=== PATIENT | male | born 1955 | race Caucasian/White ===

== ENCOUNTER 2016-11-05 11:58 | Inpatient (IN) | payer SELFPAY ==
[2016-11-05] MEDS ORDERED: Sodium Chloride 0.9% 10 ML Syringe FLUSH PRN (12:57)
[2016-11-05] MEDS ORDERED: Ondansetron 4 MG Tab.DIS PO PRN (12:57)
[2016-11-05] MEDS ORDERED: Lactated Ringers 1,000 ML IV SCH (13:00)
[2016-11-05] MEDS ORDERED: Sodium Chloride 0.9% 1,000 ML IV ONE (14:19)
[2016-11-05] MEDS: Insulin Detemir 100 Units/ML 3 ML Pen SUBCUT SCH (14:55)
[2016-11-05] MEDS: Acetaminophen/oxyCODONE 325-5 MG Tab PO PRN ×2 (15:41→21:07)
[2016-11-05] MEDS: Sodium Chloride 0.9% 1,000 ML IV SCH (17:38)
[2016-11-05] MEDS ORDERED: Insulin Aspart 100 Units/ML 3 ML Pen SUBCUT SCH ×2 (18:00→22:00)
[2016-11-05] MEDS ORDERED: Calcium Carbonate/Vitamin D3 1250 MG-200 Unit Tab PO SCH (20:00)
[2016-11-05] MEDS ORDERED: Insulin Aspart 100 Units/ML 3 ML Pen SUBCUT ONE (22:10)
[2016-11-06] MEDS: Sodium Chloride 0.9% 1,000 ML IV SCH (03:46)
--- NOTE | 2016-11-06 07:56 | CONS ---
DATE OF CONSULTATION: 11/05/2016 A 61-year-old seen today for a consultation at the request of Dr. Mcdaniel. CHIEF COMPLAINT: Weakness, dizziness, fatigue, and elevated blood sugars. HISTORY OF PRESENT ILLNESS: The patient has diabetes for 20-25 years. He came into the clinic last Friday on the with a 101 fever, some right lower quadrant abdominal pain and a white count of 14,000. He was given some IV Rocephin. He was given a prescription for prednisone for presumably for COPD exacerbation, but he never picked it up. His blood sugar was over 400 in the clinic. He had been sleeping a lot like 23 hours a day. He just had no energy, poor appetite. He had been dry heaving, but that is better now. He had been sick all week, he got sick exactly 1 week ago. He has not lost any weight. He has had some urinary frequency, but no dysuria. He had some bacteria in his urine, but trace leukocyte esterase and negative nitrites. Today, he has no abdominal pain, he has no fevers, he has no chest pain, no cough, no shortness of breath, he had sore throat. He had negative influenza testing through the clinic. PAST MEDICAL HISTORY: Otherwise, his past medical history does include coronary artery disease, status post stenting 10 years ago. He has also had an osteoarthritis with a previous right hip replacement. He has essential hypertension. He has type 2 diabetes for 20-25 years, he denies any complications. He has never been on insulin. He has A1c at 7.3 in May, but it has been up to 11.9 a year ago. He has chronic kidney disease with baseline creatinine around 1.3 to 1.4. He had been smoking about a quarter pack per day. He has had vascular disease with a previous right carotid end arterectomy. He has had obesity. He has had dyslipidemia. He has had some previous opioid dependence reported. He has had mild recurrent major depression. He has had mild COPD, and he has reported rheumatoid arthritis. SOCIAL HISTORY: He is . He lives at home with his . He drinks about 3-4 drinks of beers 1 time per week. Again, he smokes a half pack per day. FAMILY HISTORY: His mother is . She had problems with heart failure and heart disease, but was quite elderly when she . REVIEW OF SYSTEMS: General: He has had fever as stated in the HPI. No chills. He has had fatigue. HEENT: No sore throat. No nasal congestion. Cardiac: No chest pain. No palpitations. Respiratory: No cough, no shortness of breath. Abdomen: He does not even mention the abdominal pain to me, I found in his notes from Friday. Extremities: No swelling. No edema. No new back pain or knee pains. Neurologic: He denies any numbness or tingling of his extremities. Otherwise, all systems reviewed and found to be negative unless otherwise stated. . ALLERGIES: Duloxetine, Sulfa, Zetia, horseradish, losartan, and rosuvastatin. MEDICATIONS: List includes magnesium daily, Percocet 1 every 6 hours as needed for pain, aspirin 81 mg daily, calcium and vitamin D, Plavix 75 mg daily, metoprolol 100 mg daily, Zoloft 100 mg daily, amlodipine 5 mg daily, bupropion 300 mg daily. PHYSICAL EXAMINATION: General: On admission, weight 86.8 pounds. Temperature 98.5, pulse 74; blood pressure 150/66, actually blood pressure over in the clinic was listed around 100 systolic at [facility]; respiratory rate 16, and O2 of 95% on room air. General: He is in no acute distress. Heart: Regular rate and rhythm. S1, S2 without murmur. Lungs: Sounds are clear to auscultation bilaterally without crackles or wheezes. Abdomen: Positive bowel sounds. Soft and nontender. His bladder was not enlarged by exam. Liver not enlarged. Extremities: No redness. No rashes. Mental Status: Alert and orientated x3. PSYCH: His mood is appropriate. LABORATORY DATA: Lab work does show a white count 11.5, hemoglobin 13.5, platelets 222. ABGs show a pH of 7.4, pO2 of 60. Sodium 125; however, blood sugar was 409, potassium 4.1, chloride 87, bicarb 30, BUN 38, creatinine 1.8, calcium up at 11.4, albumin 2.7. ASSESSMENT: 1. Hyperglycemia with known diabetes, possibly exacerbated by recent illness. Due to renal insufficiency, the patient cannot take metformin. He is having symptoms of fatigue and excessive urination. We will get him started on some subcutaneous insulin, but I do not think an insulin drip is warranted. 2. Fevers with leukocytosis, seems to be resolving. He has no focal signs to suggest infection, could consider repeating a UA, could be even consider abdominal CT if his symptoms were to worsen. Given his diabetes, he could have some sort of abdominal infection that was partially treated by the IV Rocephin. 3. Hyponatremia, somewhat pseudohyponatremia from elevated blood sugar. Corrected sodium is 132. He also has some dehydration from increased urinary output with hyperglycemia. 4. Hypercalcemia, probably due to dehydration. We will hold his calcium supplements as well and hydrate him. 5. Acute renal failure on chronic kidney disease, stage III. Creatinine is up to 1.8 with baseline around 1.4. We will repeat another urine test here to look for any pyuria or inflammatory changes. Vasculitis could be another source of fever. I am going to also order a sedimentation rate with his morning labs. 6. Chronic pain due to rheumatoid arthritis. He is on Percocet. I did cancel the order for Prednisone, I think this would only worsen his hyperglycemia. 7. Chronic obstructive pulmonary disease, stable without exacerbation. 8. History of peripheral vascular disease and coronary disease. He is on Plavix. 9. Essential hypertension. Blood pressures are now elevated after the IV fluids. We will continue to monitor and continue his Toprol and amlodipine. 10.Depression. We will continue Wellbutrin. PLAN: At this point, we will continue routine Accu-Cheks at least every 2 hours until bedtime. He got 20 units of Levemir already that will be his daily dose for now. I am going to schedule 5 units of NovoLog t.i.d. with meals. I see no indication for an insulin drip here, the patient seems to be doing a little bit better just with IV fluids. We will have the social media editor also visit with the patient regarding his lack of insurance and difficulty with paying for prescriptions. Hopefully, if kidney function will improve to the point he can return to metformin. Followed by Dr. Mcdaniel. I anticipate he will be discharged home in the next 1-2 days. REMY: 11/05/2016 17:25:04 MODL: 11/05/2016 23:55:12 /[id number]
[2016-11-06] MEDS ORDERED: Metoprolol Succinate 50 MG Tab.ER PO SCH (08:00)
[2016-11-06] MEDS ORDERED: Clopidogrel 75 MG Tab PO SCH (08:00)
[2016-11-06] MEDS ORDERED: Aspirin 81 MG Tab.EC PO SCH (08:00)
[2016-11-06] MEDS ORDERED: amLODIPine 5 MG Tab PO SCH (08:00)
[2016-11-06] MEDS ORDERED: Magnesium Amino Acid Chelate [Magnesium] 100 MG PO SCH (08:00)
[2016-11-06] MEDS ORDERED: Sertraline 100 MG Tab PO SCH (08:00)
[2016-11-06] MEDS ORDERED: buPROPion 150 MG Tab.ER PO SCH (08:00)
[2016-11-06] MEDS: Insulin Detemir 100 Units/ML 3 ML Pen SUBCUT SCH (08:00)
[2016-11-06] MEDS ORDERED: predniSONE 20 MG Tab PO SCH (08:00)
--- NOTE | 2016-11-06 08:53 | PCM.SN ---
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 He will go home on insulin could consider metformin again if Cr remains 1.4 or better. ESR was 113 so I would have a low threshold to do a CT of his abdomen especially if his abdominal pain returns.
[2016-11-06 10:25] VITALS: BP 165/78
[2016-11-06] MEDS ORDERED: Insulin Aspart 100 Units/ML 3 ML Pen SUBCUT ONE (11:20)
--- NOTE | 2016-11-06 23:08 | PCM.HP ---
H&P History of Present Illness - General Date of Service: 11/05/16 Admit Problem/Dx: 61 year old male admitted through clinic with complaints of weakness. Source of Information: Patient History Limitations: Reports: No limitations - History of Present Illness Initial Comments - Free Text/Narative: 61 year old male presents to clinic with complaints of weakness. He is accompanied by his . Weakness was noted to have started the week prior and gradually worsening. Pt states his muscles ache. notes he has been sleeping 23 hours/day. He states he has not had an appetite. Admits to some nausea. Did have a fever late last week which prompted him to come to the clinic. Lab work was done. He was treated with IV fluids and IV Rocephin. Initially thought this may have helped but states he was "back to square one" by the evening. States he has been able to take his oral medication. Lab work from 11/02 reveals a blood sugar over 420 and sodium of 125. Calcium was elevated as well. Ketones noted in urine. Fingerstick glucose in clinic was over 420 again. Onset of Symptoms: Reports: gradual hip/knee Pain Score (Numeric/FACES): 7 - Related Data Allergies/Adverse Reactions: Allergies Allergy/AdvReac Type Severity Reaction Status Date / Time duloxetine [From Cymbalta] Allergy Other Verified 11/05/16 13:12 Sulfa (Sulfonamide Allergy Hives Verified 11/05/16 13:12 Antibiotics) ezetimibe [From Zetia] AdvReac Nausea Verified 11/05/16 13:14 horseradish AdvReac Diarrhea Verified 11/05/16 13:14 losartan AdvReac Dizziness Verified 11/05/16 13:14 rosuvastatin [From Crestor] AdvReac Muscle Verified 11/05/16 13:14 Aches Home Medications: Home Meds Aspirin [Ecotrin] 81 mg PO DAILY 11/05/16 [History] Calcium Carbonate [Calcium] 600 mg PO BID 11/05/16 [History] Clopidogrel [Plavix] 75 mg PO DAILY 11/05/16 [History] Hydrochlorothiazide 25 mg PO DAILY 11/05/16 [History] Magnesium Amino Acid Chelate [Magnesium] 100 mg PO DAILY 11/05/16 [History] Metoprolol Succinate [Toprol XL] 100 mg PO DAILY 11/05/16 [History] Elrod-3 Fatty Acids [Maxepa] 1,000 mg PO WITHDINNER 11/05/16 [History] Elrod-3 Fatty Acids [Maxepa] 2,000 mg PO DAILY 11/05/16 [History] Sertraline [Zoloft] 100 mg PO DAILY 11/05/16 [History] amLODIPine [Norvasc] 5 mg PO DAILY 11/05/16 [History] buPROPion [Wellbutrin SR] 150 mg PO BID 11/05/16 [History] oxyCODONE HCl/Acetaminophen [Percocet 10-325 mg Tablet] 1 each PO Q6H PRN [History] Insulin Aspart [NovoLOG] 5 unit SUBCUT TIDMEALS #1 pen 11/06/16 [Rx] Insulin Detemir [Levemir] 20 unit SUBCUT DAILY #1 pen 11/06/16 [Rx] Past Medical History Cardiovascular History: Reports: Stents Musculoskeletal History: Reports: Arthritis Neurological History: Reports: Concussion Psychiatric History: Reports: Depression Endocrine/Metabolic History: Reports: Diabetes, type II - Past Surgical History Musculoskeletal Surgical History: Reports: Arthroscopic knee Other Musculoskeletal Surgeries/Procedures:: left knee in the Social & Family History - Family History HEENT: Reports: Cataract, Impaired vision, Sinusitis Cardiac: Reports: Stent H&P Review of Systems - Review of Systems: Review Of Systems: See Below General: Reports: fever (last fever noted 4 days ago), weakness HEENT: Reports: no symptoms Pulmonary: Reports: no symptoms. Denies: shortness of breath, cough Cardiovascular: Reports: no symptoms. Denies: chest pain Gastrointestinal: Reports: Abdominal pain, Decreased appetite, Nausea. Denies: Diarrhea, Hematemesis, Hematochezia, Melena, Vomiting Genitourinary: Reports: no symptoms. Denies: dysuria, hematuria Musculoskeletal: Reports: joint pain, muscle pain Skin: Reports: no symptoms Psychiatric: Reports: no symptoms. Denies: confusion Neurological: Reports: paresthesia, weakness Hematologic/Lymphatic: Reports: no symptoms Immunologic: Reports: no symptoms Exam - Exam Exam: See Below - Vital Signs Vital Signs: Last Vital Signs Temp 36.6 C 11/06/16 10:00 Pulse 76 11/06/16 10:00 Resp 16 11/06/16 10:00 BP 165/78 H 11/06/16 10:00 Pulse Ox 96 11/06/16 10:00 Weight: 85.049 kg - Exam General: alert, oriented, cooperative HEENT: Conjunctiva clear, Other (Mucous membranes are dry), PERRLA Neck: supple Lungs: Clear to auscultation Cardiovascular: regular rate, regular rhythm Abdomen: normal bowel sounds, soft (Male) Exam: Deferred Extremities: No: edema Skin: warm, dry Neurological: cranial nerves intact Neuro Extensive - Mental Status: alert, oriented x3 Neuro Extensive - Motor, Sensory, Reflexes: CN II-XII intact Psychiatric: alert, normal affect - Patient Data Lab Results last 24 hrs: Laboratory Results - last 24 hr 11/05/16 11/05/16 11/06/16 Range/Units 13:18 13:18 05:34 WBC (4.0-10.0) x10^3/uL RBC (4.5-6.0) x10^6/uL Hgb (14.0-18.0) g/dL Hct (40.0-52.0) % MCV (78.0-93.0) fL MCH (26.0-32.0) pg MCHC (32.0-36.0) g/dL RDW Coeff of Vijay (10.0-15.0) % Plt Count (130-400) x10^3/uL Add Manual Diff Neutrophils % (Manual) (50-80) % Band Neutrophils % (0-6) % Lymphocytes % (Manual) (25-50) % Eosinophils % (Manual) (0-4) % Platelet Estimate ESR (0-16) mm/hr Sodium (136-145) mmol/L Potassium (3.5-5.1) mmol/L Chloride (98-107) mmol/L Carbon Dioxide (21-32) mmol/L BUN (7-18) mg/dL Creatinine (0.70-1.30) mg/dL Est Cr Clr Drug Dosing mL/min Estimated GFR (MDRD) Glucose (74-106) mg/dL POC Glucose 281 H (74-106) mg/dL Serum Osmolality 293 (275-295) mosm/kg Calcium (8.5-10.1) mg/dL B-Hydroxybutyrate 0.3 H* (0.0-0.2) mmol/L 11/06/16 11/06/16 11/06/16 Range/Units 06:35 06:35 06:35 WBC 6.1 (4.0-10.0) x10^3/uL RBC 3.87 L (4.5-6.0) x10^6/uL Hgb 12.2 L (14.0-18.0) g/dL Hct 35.3 L (40.0-52.0) % MCV 91.2 (78.0-93.0) fL MCH 31.5 (26.0-32.0) pg MCHC 34.6 (32.0-36.0) g/dL RDW Coeff of Vijay 12.5 (10.0-15.0) % Plt Count 166 (130-400) x10^3/uL Add Manual Diff Yes Neutrophils % (Manual) 78 (50-80) % Band Neutrophils % 5 (0-6) % Lymphocytes % (Manual) 14 L (25-50) % Eosinophils % (Manual) 3 (0-4) % Platelet Estimate Adequate ESR 113 H (0-16) mm/hr Sodium 133 L (136-145) mmol/L Potassium 4.0 (3.5-5.1) mmol/L Chloride 95 L (98-107) mmol/L Carbon Dioxide 28 (21-32) mmol/L BUN 31 H (7-18) mg/dL Creatinine 1.4 H (0.70-1.30) mg/dL Est Cr Clr Drug Dosing 55.76 mL/min Estimated GFR (MDRD) 51 Glucose 318 H (74-106) mg/dL POC Glucose (74-106) mg/dL Serum Osmolality (275-295) mosm/kg Calcium 9.3 (8.5-10.1) mg/dL B-Hydroxybutyrate (0.0-0.2) mmol/L 11/06/16 11/06/16 11/06/16 Range/Units 11:11 12:34 13:44 WBC (4.0-10.0) x10^3/uL RBC (4.5-6.0) x10^6/uL Hgb (14.0-18.0) g/dL Hct (40.0-52.0) % MCV (78.0-93.0) fL MCH (26.0-32.0) pg MCHC (32.0-36.0) g/dL RDW Coeff of Vijay (10.0-15.0) % Plt Count (130-400) x10^3/uL Add Manual Diff Neutrophils % (Manual) (50-80) % Band Neutrophils % (0-6) % Lymphocytes % (Manual) (25-50) % Eosinophils % (Manual) (0-4) % Platelet Estimate ESR (0-16) mm/hr Sodium (136-145) mmol/L Potassium (3.5-5.1) mmol/L Chloride (98-107) mmol/L Carbon Dioxide (21-32) mmol/L BUN (7-18) mg/dL Creatinine (0.70-1.30) mg/dL Est Cr Clr Drug Dosing mL/min Estimated GFR (MDRD) Glucose (74-106) mg/dL POC Glucose 460 H* 491 H* 383 H (74-106) mg/dL Serum Osmolality (275-295) mosm/kg Calcium (8.5-10.1) mg/dL B-Hydroxybutyrate (0.0-0.2) mmol/L Result Diagrams: 11/06/16 06:35 11/06/16 06:35 *Q Meaningful Use (ADM) - VTE *Q VTE Criteria *Q: - Stroke *Q Stroke Criteria *Q: - AMI *Q AMI Criteria *Q: - Problem List (1) Weakness SNOMED Code(s): 13144632 ICD Code: R53.1 - WEAKNESS Status: Acute (2) Diabetes mellitus type II, uncontrolled SNOMED Code(s): 51813646, 884978311 ICD Code: E11.65 - TYPE 2 DIABETES MELLITUS WITH HYPERGLYCEMIA Status: Chronic Priority: High Qualifiers: Diabetes mellitus complication status: with neurologic complications Diabetes mellitus complication detail: with unspecified neuropathy Diabetes mellitus [facility] insulin use: without [facility] use Qualified Code(s): E11.40 - Type 2 diabetes mellitus with diabetic neuropathy, unspecified; E11.65 - Type 2 diabetes mellitus with hyperglycemia (3) Hyponatremia SNOMED Code(s): 42581769 ICD Code: E87.1 - HYPO-OSMOLALITY AND HYPONATREMIA Status: Acute (4) Hypercalcemia SNOMED Code(s): 67588306 ICD Code: E83.52 - HYPERCALCEMIA Status: Acute (5) Dehydration SNOMED Code(s): 33810352 ICD Code: E86.0 - DEHYDRATION Status: Acute Problem List Initiated/Reviewed/Updated: Yes Orders Last 24hrs: Active Orders 24 hr Category Date Time Status Ready for Discharge [RC] PER UNIT ROUTINE Care 11/06/16 12:03 Active Assessment/Plan Comment:: Patient will be admitted and started on aggressive IV fluid replacement. Blood sugar and electrolytes will be monitored. Zofran ordered for nausea. Will start levemir. Will consult, Dr. Brigitte Clien in the event that an insulin drip is necessary. Patient is a code level I
--- NOTE | 2016-11-06 23:19 | PCM.DCSUM1 ---
Discharge Summary - Hospital Course Free Text/Narrative:: Patient admitted yesterday with dehydration, weakness and hyperglycemia. States he is feeling much better today. Ate well last evening and again at breakfast. Didn't sleep well but states that was due to the bed and IV tubing. - Discharge Data Discharge Date: 11/06/16 Discharge Disposition: Home, Self-Care 01 Condition: Good - Discharge Diagnosis/Problem(s) (1) Weakness SNOMED Code(s): 96290409 ICD Code: R53.1 - WEAKNESS Status: Acute (2) Diabetes mellitus type II, uncontrolled SNOMED Code(s): 69675999, 918914812 ICD Code: E11.65 - TYPE 2 DIABETES MELLITUS WITH HYPERGLYCEMIA Status: Chronic Priority: High Qualifiers: Diabetes mellitus complication status: with neurologic complications Diabetes mellitus complication detail: with unspecified neuropathy Diabetes mellitus termination clerk insulin use: without termination clerk use Qualified Code(s): E11.40 - Type 2 diabetes mellitus with diabetic neuropathy, unspecified; E11.65 - Type 2 diabetes mellitus with hyperglycemia (3) Hyponatremia SNOMED Code(s): 93870600 ICD Code: E87.1 - HYPO-OSMOLALITY AND HYPONATREMIA Status: Acute (4) Hypercalcemia SNOMED Code(s): 78876653 ICD Code: E83.52 - HYPERCALCEMIA Status: Acute (5) Dehydration SNOMED Code(s): 33035331 ICD Code: E86.0 - DEHYDRATION Status: Acute - Patient Summary/Data Consults: Consultations 11/05/16 12:57 Consult to Physician [CONS] Routine - Patient Instructions Diet: Diabetic Diet Activity: As Tolerated - Discharge Plan Prescriptions/Med Rec: Insulin Aspart [NovoLOG] 5 unit SUBCUT TIDMEALS #1 pen Insulin Detemir [Levemir] 20 unit SUBCUT DAILY #1 pen Home Medications: Home Meds Aspirin [Ecotrin] 81 mg PO DAILY 11/05/16 [History] Calcium Carbonate [Calcium] 600 mg PO BID 11/05/16 [History] Clopidogrel [Plavix] 75 mg PO DAILY 11/05/16 [History] Hydrochlorothiazide 25 mg PO DAILY 11/05/16 [History] Magnesium Amino Acid Chelate [Magnesium] 100 mg PO DAILY 11/05/16 [History] Metoprolol Succinate [Toprol XL] 100 mg PO DAILY 11/05/16 [History] [place]-3 Fatty Acids [Maxepa] 1,000 mg PO WITHDINNER 11/05/16 [History] [place]-3 Fatty Acids [Maxepa] 2,000 mg PO DAILY 11/05/16 [History] Sertraline [Zoloft] 100 mg PO DAILY 11/05/16 [History] amLODIPine [Norvasc] 5 mg PO DAILY 11/05/16 [History] buPROPion [Wellbutrin SR] 150 mg PO BID 11/05/16 [History] oxyCODONE HCl/Acetaminophen [Percocet 10-325 mg Tablet] 1 each PO Q6H PRN [History] Insulin Aspart [NovoLOG] 5 unit SUBCUT TIDMEALS #1 pen 11/06/16 [Rx] Insulin Detemir [Levemir] 20 unit SUBCUT DAILY #1 pen 11/06/16 [Rx] Referrals: Adelaide Mcdaniel DO [Primary Care Provider] - 10/17/17 8:40 am (You have a follow up appt. with Dr. Mcdaniel on November 14, 2016 at 8:40 at [facility]) - Discharge Summary/Plan Comment DC Time >30 min.: No Discharge Summary/Plan Comment: Patient will be discharged home to care of himself. Patient has prior history of insulin use and thus states he is knowledgeable with insulin use. He was asked to do glucometer checks 4x/day until follow up appt in clinic next week. RTC sooner should weakness return. He was instructed to hold his metformin and glipizide for now as well. - General Info Date of Service: 11/06/16 Admission Dx/Problem (Free Text: 61 year old male admitted through clinic with complaints of weakness. - Review of Systems General: Reports: no symptoms HEENT: Reports: no symptoms, glasses Pulmonary: Denies: shortness of breath Cardiovascular: Denies: chest pain Gastrointestinal: Denies: Abdominal pain, Nausea Genitourinary: Reports: no symptoms Musculoskeletal: Reports: joint pain Skin: Reports: no symptoms Neurological: Reports: no symptoms - Patient Data Vitals - Most Recent: Last Vital Signs Temp 36.6 C 11/06/16 10:00 Pulse 76 11/06/16 10:00 Resp 16 11/06/16 10:00 BP 165/78 H 11/06/16 10:00 Pulse Ox 96 02/22/17 10:00 Weight - Most Recent: 85.049 kg I&O - Last 24 hours: Intake & Output 11/06/16 11/06/16 11/07/16 14:59 22:59 06:59 Intake Total 600 Balance 600 Lab Results - Last 24 hrs: Laboratory Results - last 24 hr 11/05/16 11/05/16 11/06/16 Range/Units 13:18 13:18 05:34 WBC (4.0-10.0) x10^3/uL RBC (4.5-6.0) x10^6/uL Hgb (14.0-18.0) g/dL Hct (40.0-52.0) % MCV (78.0-93.0) fL MCH (26.0-32.0) pg MCHC (32.0-36.0) g/dL RDW Coeff of Vijay (10.0-15.0) % Plt Count (130-400) x10^3/uL Add Manual Diff Neutrophils % (Manual) (50-80) % Band Neutrophils % (0-6) % Lymphocytes % (Manual) (25-50) % Eosinophils % (Manual) (0-4) % Platelet Estimate ESR (0-16) mm/hr Sodium (136-145) mmol/L Potassium (3.5-5.1) mmol/L Chloride (98-107) mmol/L Carbon Dioxide (21-32) mmol/L BUN (7-18) mg/dL Creatinine (0.70-1.30) mg/dL Est Cr Clr Drug Dosing mL/min Estimated GFR (MDRD) Glucose (74-106) mg/dL POC Glucose 281 H (74-106) mg/dL Serum Osmolality 293 (275-295) mosm/kg Calcium (8.5-10.1) mg/dL B-Hydroxybutyrate 0.3 H* (0.0-0.2) mmol/L 11/06/16 11/06/16 11/06/16 Range/Units 06:35 06:35 06:35 WBC 6.1 (4.0-10.0) x10^3/uL RBC 3.87 L (4.5-6.0) x10^6/uL Hgb 12.2 L (14.0-18.0) g/dL Hct 35.3 L (40.0-52.0) % MCV 91.2 (78.0-93.0) fL MCH 31.5 (26.0-32.0) pg MCHC 34.6 (32.0-36.0) g/dL RDW Coeff of Vijay 12.5 (10.0-15.0) % Plt Count 166 (130-400) x10^3/uL Add Manual Diff Yes Neutrophils % (Manual) 78 (50-80) % Band Neutrophils % 5 (0-6) % Lymphocytes % (Manual) 14 L (25-50) % Eosinophils % (Manual) 3 (0-4) % Platelet Estimate Adequate ESR 113 H (0-16) mm/hr Sodium 133 L (136-145) mmol/L Potassium 4.0 (3.5-5.1) mmol/L Chloride 95 L (98-107) mmol/L Carbon Dioxide 28 (21-32) mmol/L BUN 31 H (7-18) mg/dL Creatinine 1.4 H (0.70-1.30) mg/dL Est Cr Clr Drug Dosing 55.76 mL/min Estimated GFR (MDRD) 51 Glucose 318 H (74-106) mg/dL POC Glucose (74-106) mg/dL Serum Osmolality (275-295) mosm/kg Calcium 9.3 (8.5-10.1) mg/dL B-Hydroxybutyrate (0.0-0.2) mmol/L 11/06/16 11/06/16 11/06/16 Range/Units 11:11 12:34 13:44 WBC (4.0-10.0) x10^3/uL RBC (4.5-6.0) x10^6/uL Hgb (14.0-18.0) g/dL Hct (40.0-52.0) % MCV (78.0-93.0) fL MCH (26.0-32.0) pg MCHC (32.0-36.0) g/dL RDW Coeff of Vijay (10.0-15.0) % Plt Count (130-400) x10^3/uL Add Manual Diff Neutrophils % (Manual) (50-80) % Band Neutrophils % (0-6) % Lymphocytes % (Manual) (25-50) % Eosinophils % (Manual) (0-4) % Platelet Estimate ESR (0-16) mm/hr Sodium (136-145) mmol/L Potassium (3.5-5.1) mmol/L Chloride (98-107) mmol/L Carbon Dioxide (21-32) mmol/L BUN (7-18) mg/dL Creatinine (0.70-1.30) mg/dL Est Cr Clr Drug Dosing mL/min Estimated GFR (MDRD) Glucose (74-106) mg/dL POC Glucose 460 H* 491 H* 383 H (74-106) mg/dL Serum Osmolality (275-295) mosm/kg Calcium (8.5-10.1) mg/dL B-Hydroxybutyrate (0.0-0.2) mmol/L Med Orders - Current: Current Medications Discontinued Medications Amlodipine Besylate (Norvasc) 5 mg PO DAILY [facility] Last Admin: 11/06/16 07:58 Dose: 5 mg Aspirin (Halfprin) 81 mg PO DAILY [facility] Last Admin: 11/06/16 07:58 Dose: 81 mg Bupropion HCl (Wellbutrin Xl) 300 mg PO DAILY [facility] Last Admin: 11/06/16 07:57 Dose: 300 mg Calcium Carbonate (Calcium Carbonate/Vitamin D 1250 Mg-200 Unit) 1 tab PO BID [facility] Clopidogrel Bisulfate (Plavix) 75 mg PO DAILY [facility] Last Admin: 11/06/16 07:58 Dose: 75 mg Lactated Ringer's (Ringers, Lactated) 1,000 mls @ 175 mls/hr IV ASDIRECTED [facility] Sodium Chloride (Normal Saline) 1,000 mls @ 1,000 mls/hr IV ONETIME ONE Stop: 11/05/16 15:18 Last Admin: 11/05/16 14:30 Dose: 1,000 mls/hr Sodium Chloride (Normal Saline) 1,000 mls @ 100 mls/hr IV ASDIRECTED [facility] Last Admin: 11/06/16 03:46 Dose: 100 mls/hr Insulin Aspart (Novolog) 5 unit SUBCUT TIDMEALS [facility] Last Admin: 11/05/16 17:41 Dose: 5 units Insulin Aspart (Novolog) 0 unit SUBCUT TIDMEALS [facility] Last Admin: 11/05/16 22:16 Dose: 8 units Insulin Aspart (Novolog) 0 unit SUBCUT NOW ONE Stop: 11/05/16 22:11 Last Admin: 11/05/16 22:10 Dose: 8 units Insulin Aspart (Novolog) 5 unit SUBCUT ONETIME ONE Stop: 11/06/16 11:21 Last Admin: 11/06/16 11:37 Dose: 5 unit Insulin Detemir (Levemir) 20 unit SUBCUT DAILY [facility] Last Admin: 11/06/16 08:00 Dose: 20 units Metoprolol Succinate (Toprol Xl) 100 mg PO DAILY [facility] Last Admin: 11/06/16 07:56 Dose: 100 mg Magnesium Amino Acid Chelate [Magnesium] 100 Mg 0 mg PO DAILY [facility] Last Admin: 11/06/16 08:02 Dose: Not Given Ondansetron HCl (Zofran Odt) 4 mg PO Q4H PRN PRN Reason: nausea, able to take PO Oxycodone/Acetaminophen (Percocet 325-5 Mg) 2 tab PO Q6HR PRN PRN Reason: Pain Last Admin: 11/05/16 21:07 Dose: 2 tab Prednisone (Prednisone) 20 mg PO WITHBREAKFAST [facility] Sertraline HCl (Zoloft) 100 mg PO DAILY [facility] Last Admin: 11/06/16 07:57 Dose: 100 mg Sodium Chloride (Saline Flush) 10 ml FLUSH ASDIRECTED PRN PRN Reason: Keep Vein Open - Exam General: Reports: alert, oriented HEENT: Reports: Pupils equal Neck: Reports: supple Lungs: Reports: Clear to auscultation Cardiovascular: Reports: regular rate, regular rhythm Abdomen: Reports: bowel sounds present, soft Extremities: Reports: no edema Skin: Reports: warm, dry Psy/Mental Status: Reports: alert, normal affect *Q Meaningful Use (DIS) - VTE *Q VTE Criteria *Q: - Stroke *Q Stroke Criteria *Q: - AMI *Q AMI Criteria *Q:
== END 2016-11-06 14:08 | disposition home or self-care (01) | DRG 638 ==
LOC: VM.MS 12:00
PROVIDERS: ADMIT Family Medicine; ATTEND Family Medicine
DX: E11.65 Type 2 diabetes mellitus with hyperglycemia (principal); E87.1 Hypo-osmolality and hyponatremia; N17.9 Acute kidney failure, unspecified; R53.1 Weakness; R11.0 Nausea; Z79.82 Long term (current) use of aspirin; Z79.4 Long term (current) use of insulin; F32.9 Major depressive disorder, single episode, unspecified; E83.52 Hypercalcemia; E86.0 Dehydration; I25.10 Atherosclerotic heart disease of native coronary artery without angina pectoris; I12.9 Hypertensive chronic kidney disease with stage 1 through stage 4 chronic kidney disease, or unspecified chronic kidney disease; E11.22 Type 2 diabetes mellitus with diabetic chronic kidney disease; N18.9 Chronic kidney disease, unspecified; R50.9 Fever, unspecified; D72.829 Elevated white blood cell count, unspecified; M06.9 Rheumatoid arthritis, unspecified; I73.9 Peripheral vascular disease, unspecified; J44.9 Chronic obstructive pulmonary disease, unspecified; E11.40 Type 2 diabetes mellitus with diabetic neuropathy, unspecified; Z95.5 Presence of coronary angioplasty implant and graft
CPT/HCPCS: 36415; 36600; 80048; 80053; 81001; 81003; 82010; 82803; 82962; 83930; 85025; 85652; A9270-GY; J1815-GY; J7030

== ENCOUNTER 2018-01-11 11:27 | Inpatient (IN) | payer MEDICARE ==
[2018-01-11] MEDS ORDERED: methylPREDNISolone Sodium Succinate 125 MG/2 ML SDV IVPUSH ONE (11:31)
[2018-01-11] MEDS ORDERED: Albuterol/Ipratropium 3.0-0.5 MG/3 ML Neb Soln NEB ONE (11:31)
[2018-01-11] MEDS ORDERED: cefTRIAXone 1 GM Vial IVPUSH ONE (11:46)
--- NOTE | 2018-01-11 11:47 | EDM.PDOC ---
ED HPI GENERAL MEDICAL PROBLEM - General Stated Complaint: RESPIRATORY PROBLEMS Time Seen by Provider: 01/11/18 11:27 Source of Information: Reports: Patient, Family - History of Present Illness INITIAL COMMENTS - FREE TEXT/NARRATIVE: patient is brought into the emergency department today with complaints of shortness of breath. The shortness of breath started yesterday and has progressed throughout the night into today. Patient denies any chest pain with this. States that he does have a cough and has had a fever over the last 24 hours. Today he is unable to continue with his activities of daily living. He becomes extremely short of breath and is unable to speak full sentences. He denies being ill prior to yesterday. He does smoke a half a pack of cigarettes a day. He does not have any history of respiratory diseases nor is he on home oxygen. Denies any nausea, vomiting, diarrhea, or numbness tingling. Onset: Sudden Associated Symptoms: Reports: Cough, cough w sputum, Diaphoresis, Fever/Chills, Shortness of Breath, Weakness - Related Data Allergies Allergy/AdvReac Type Severity Reaction Status Date / Time duloxetine [From Cymbalta] Allergy Other Verified 01/11/18 11:47 Sulfa (Sulfonamide Allergy Hives Verified 01/11/18 11:47 Antibiotics) ezetimibe [From Zetia] AdvReac Nausea Verified 01/11/18 11:47 horseradish AdvReac Diarrhea Verified 01/11/18 11:47 losartan AdvReac Dizziness Verified 01/11/18 11:47 rosuvastatin [From Crestor] AdvReac Muscle Verified 01/11/18 11:47 Aches Home Meds: Home Meds Aspirin [Ecotrin] 81 mg PO DAILY 11/05/16 [History] Calcium Carbonate [Calcium] 600 mg PO BID 11/05/16 [History] Clopidogrel [Plavix] 75 mg PO DAILY 11/05/16 [History] Hydrochlorothiazide 25 mg PO DAILY 11/05/16 [History] Magnesium Amino Acid Chelate [Magnesium] 100 mg PO DAILY 11/05/16 [History] Metoprolol Succinate [Toprol XL] 100 mg PO DAILY 11/05/16 [History] [place]-3 Fatty Acids [Maxepa] 1,000 mg PO WITHDINNER 11/05/16 [History] [place]-3 Fatty Acids [Maxepa] 2,000 mg PO DAILY 11/05/16 [History] Sertraline [Zoloft] 100 mg PO DAILY 11/05/16 [History] amLODIPine [Norvasc] 5 mg PO DAILY 11/05/16 [History] buPROPion [Wellbutrin SR] 150 mg PO BID 11/05/16 [History] oxyCODONE HCl/Acetaminophen [Percocet 10-325 mg Tablet] 1 each PO Q6H PRN [History] Insulin Aspart [NovoLOG] 5 unit SUBCUT TIDMEALS #1 pen 11/06/16 [Rx] Insulin Detemir [Levemir] 20 unit SUBCUT DAILY #1 pen 11/06/16 [Rx] Past Medical History Cardiovascular History: Reports: Stents Musculoskeletal History: Reports: Arthritis Neurological History: Reports: Concussion Psychiatric History: Reports: Depression Endocrine/Metabolic History: Reports: Diabetes, Type II - Past Surgical History Musculoskeletal Surgical History: Reports: Arthroscopic Knee Social & Family History - Family History HEENT: Reports: Cataract, Impaired Vision, Sinusitis Cardiac: Reports: Stent ED ROS GENERAL - Review of Systems Review Of Systems: See Below Constitutional: Reports: Fever, Chills, Weakness, Night Sweats HEENT: Reports: No Symptoms Respiratory: Reports: Shortness of Breath, Wheezing, Cough Cardiovascular: Reports: No Symptoms Endocrine: Reports: No Symptoms GI/Abdominal: Reports: No Symptoms : Reports: No Symptoms Musculoskeletal: Reports: No Symptoms Skin: Reports: No Symptoms Neurological: Reports: No Symptoms Psychiatric: Reports: No Symptoms Hematologic/Lymphatic: Reports: No Symptoms Immunologic: Reports: No Symptoms ED EXAM, GENERAL - Physical Exam Exam: See Below Exam Limited By: Respiratory Distress General Appearance: Alert, Moderate Distress Respiratory/Chest: Respiratory Distress, Decreased Breath Sounds, Wheezing, Stridor, Accessory Muscle Use Cardiovascular: Normal Peripheral Pulses, Tachycardia GI/Abdominal: Normal Bowel Sounds, Soft, Non-Tender, No Distention, No Abnormal Bruit Back Exam: Normal Inspection, Full Range of Motion Extremities: Normal Inspection, Normal Range of Motion, Normal Capillary Refill Neurological: Alert, Oriented, Normal Gait (uses a cane ), Normal Reflexes Psychiatric: Normal Affect, Normal Mood Skin Exam: Diaphoretic Course - Vital Signs Last Recorded V/S: Last Vital Signs Temp 36.6 C 01/11/18 12:31 Pulse 74 04/29/18 12:31 Resp 17 01/11/18 12:31 BP 134/75 01/11/18 12:31 Pulse Ox 94 L 01/11/18 12:31 - Orders/Labs/Meds Orders: Active Orders 24 hr Category Date Time Status Admission Status [Patient Status] [ADT] Routine ADT 01/11/18 12:34 Ordered RT Aerosol Therapy [RC] ASDIRECTED Care 01/11/18 11:31 Active Chest 1V Frontal [CR] Stat Exams 01/11/18 11:32 Taken CULTURE BLOOD [BC] Stat Lab 01/11/18 11:30 Results CULTURE BLOOD [BC] Stat Lab 01/11/18 11:40 Received Lactated Ringers [Ringers, Lactated] 1,000 ml Med 01/11/18 12:00 Active IV ASDIRECTED Vancomycin 1,250 mg Med 01/11/18 12:15 Active Sodium Chloride 0.9% [Normal Saline] 250 ml IV ONETIME Blood Culture x2 Reflex Set [OM.PC] Stat Oth 01/11/18 11:32 Ordered Medication Orders Lactated Ringer's (Ringers, Lactated) 1,000 mls @ 150 mls/hr IV ASDIRECTED [facility] Last Admin: 01/11/18 12:00 Dose: 150 mls/hr Vancomycin HCl 1,250 mg/ (Sodium Chloride) 250 mls @ 200 mls/hr IV ONETIME ONE Stop: 01/11/18 13:29 Last Admin: 01/11/18 12:28 Dose: 200 mls/hr Labs: Laboratory Tests 01/11/18 01/11/18 01/11/18 Range/Units 11:30 11:30 11:30 WBC 16.3 H (4.0-10.0) x10^3/uL RBC 4.77 (4.5-6.0) x10^6/uL Hgb 15.0 D (14.0-18.0) g/dL Hct 44.1 (40.0-52.0) % MCV 92.5 (78.0-93.0) fL MCH 31.4 (26.0-32.0) pg MCHC 34.0 (32.0-36.0) g/dL RDW Coeff of Vijay 12.8 (10.0-15.0) % Plt Count 164 (130-400) x10^3/uL Neut % (Auto) 87.2 H (50.0-80.0) % Lymph % (Auto) 7.8 L (25.0-50.0) % [place] % (Auto) 4.1 (2.0-11.0) % Eos % (Auto) 0.6 (0.0-4.0) % Baso % (Auto) 0.3 (0.2-1.2) % Sodium 139 (136-145) mmol/L Potassium 4.5 (3.5-5.1) mmol/L Chloride 100 (98-107) mmol/L Carbon Dioxide 27 (21-32) mmol/L Anion Gap 16.5 (10-20) mmol/L BUN 17 (7-18) mg/dL Creatinine 1.5 H (0.70-1.30) mg/dL Est Cr Clr Drug Dosing TNP Estimated GFR (MDRD) 47 Glucose 191 H (74-106) mg/dL Lactic Acid 3.3 H* (0.4-2.0) mmol/L Calcium 9.4 (8.5-10.1) mg/dL Corrected Calcium 9.24 D (8.5-10.1) mg/dL Total Bilirubin 0.7 (0.2-1.0) mg/dL AST 29 (15-37) U/L ALT 34 (16-63) U/L Alkaline Phosphatase 89 (46-116) U/L Troponin I 0.029 (<=0.056) ng/mL NT-Pro-B Natriuret Pep 753 H (<=125) pg/mL Total Protein 8.9 H (6.4-8.2) g/dL Albumin 4.2 (3.4-5.0) g/dL Globulin 4.7 Albumin/Globulin Ratio 0.89 Meds: Medications Generic Name Dose Route Start Last Admin Trade Name Freq PRN Reason Stop Dose Admin Lactated Ringer's 1,000 mls @ 150 mls/hr 01/11/18 12:00 01/11/18 12:00 Ringers, Lactated IV 150 mls/hr ASDIRECTED [facility] Administration Vancomycin HCl 1,250 mg/ 250 mls @ 200 mls/hr 01/11/18 12:15 01/11/18 12:28 Sodium Chloride IV 01/11/18 13:29 200 mls/hr ONETIME ONE Administration Discontinued Medications Generic Name Dose Route Start Last Admin Trade Name [place]on PRN Reason Stop Dose Admin Albuterol/Ipratropium 3 ml 01/11/18 11:31 01/11/18 11:32 Duoneb 3.0-0.5 Mg/3 Ml NEB 01/11/18 11:32 3 ml ONETIME ONE Administration Ceftriaxone Sodium 1 gm 01/11/18 11:46 01/11/18 12:01 Rocephin IVPUSH 01/11/18 11:47 1 gm ONETIME ONE Administration Methylprednisolone Sodium Succinate 125 mg 01/11/18 11:31 01/11/18 11:37 Solu-Medrol IVPUSH 01/11/18 11:32 125 mg ONETIME ONE Administration Departure - Departure Time of Disposition: 12:40 Disposition: Admitted As Inpatient 64 Condition: Fair Clinical Impression: Respiratory distress Pneumonia Qualifiers: Pneumonia type: due to unspecified organism Laterality: left Lung location: lower lobe of lung Qualified Code(s): J18.1 - Lobar pneumonia, unspecified organism Sepsis Qualifiers: Sepsis type: sepsis due to unspecified organism Qualified Code(s): A41.9 - Sepsis, unspecified organism - Discharge Information Referrals: PCP,None [Ordering Only Provider] - - My Orders Last 24 Hours: My Active Orders 01/11/18 11:30 CULTURE BLOOD [BC] Stat 01/11/18 11:31 RT Aerosol Therapy [RC] ASDIRECTED 01/11/18 11:32 Chest 1V Frontal [CR] Stat Blood Culture x2 Reflex Set [OM.PC] Stat 01/11/18 11:40 CULTURE BLOOD [BC] Stat 01/11/18 12:00 Lactated Ringers [Ringers, Lactated] 1,000 ml IV ASDIRECTED 01/11/18 12:15 Vancomycin 1,250 mg Sodium Chloride 0.9% [Normal Saline] 250 ml IV ONETIME 01/11/18 12:34 Admission Status [Patient Status] [ADT] Routine - Assessment/Plan Last 24 Hours: My Active Orders 01/11/18 11:30 CULTURE BLOOD [BC] Stat 01/11/18 11:31 RT Aerosol Therapy [RC] ASDIRECTED 01/11/18 11:32 Chest 1V Frontal [CR] Stat Blood Culture x2 Reflex Set [OM.PC] Stat 01/11/18 11:40 CULTURE BLOOD [BC] Stat 01/11/18 12:00 Lactated Ringers [Ringers, Lactated] 1,000 ml IV ASDIRECTED 01/11/18 12:15 Vancomycin 1,250 mg Sodium Chloride 0.9% [Normal Saline] 250 ml IV ONETIME 01/11/18 12:34 Admission Status [Patient Status] [ADT] Routine Assessment:: 1. SOB 2. Respiratory Failure requiring O2 3. Pneumonia- Mild left atelectasis/or infiltrates 4. Sepsis Plan: 1. Labs completed and reviewed results with the pt and spouse 2. Xray completed and reviewed results with the pt and spouse 3. Sepsis protocol utilized related to pt's initial presentation 4. Fluids given at a controlled rate for comfort 5. Duo neb and solumedrol given upon arrival for sats in the 70's and wheezing throughout all lung olson 6. Rocephin (given within 1 hr of arrival) and vancomycin stated in the ER. 7. EKG completed in ER with Sinus Rhythm noted 8. Consultation completed with Dr. Taylor to admit pt to the hospital for further medical management of sepsis and pneumonia.
[2018-01-11] MEDS ORDERED: Lactated Ringers 1,000 ML IV SCH (12:00)
[2018-01-11 12:16] LABS: CHLORIDE,CL 100 mmol/L (98-107); SODIUM,NA 139 mmol/L (136-145)
--- NOTE | 2018-01-11 14:00 | PCM.HP ---
H&P History of Present Illness - General Date of Service: 01/11/18 Admit Problem/Dx: Admission Diagnosis/Problem Admission Diagnosis/Problem Pneumonia History Limitations: Reports: No Limitations - History of Present Illness Initial Comments - Free Text/Narative: Stan Epperson is a 62-year-old male who was well prior to 24 hours before to admission. Yesterday afternoon he started having fever, nonproductive cough and then finally shortness of breath. Throughout the night he was unable to sleep because of this coughing, dyspnea and wheezing. Patient came to the emergency room because of his respiratory distress. His admission vitals showed pulse of 83, temperature 95.9, blood pressure 137/75, respiratory rate of 28 and an O2 saturation of 75% on room air.Patient was treated with DuoNeb and intravenous methylprednisolone,. Chest x-ray showed a probable left lower lobe infiltrate. White count was 16,300 with left shift, creatinine was 1.5 and lactic acid level was elevated at 3.3, blood sugar was 191. BNP was mildly elevated at 753 as well Blood cultures 2 were drawn, he was given Rocephin and vancomycin. Patient's status improved with the aforementioned measures and 4 L of O2 so that at the time of transfer his pulse was 74 blood pressure 134/75 respiratory rate 17 O2 sat was 94% on 4 L O2 and [t a[[eared comfortabale patient is admitted for inpatient treatment of his pneumonia in view of his hypoxia, elevated white count ,diabetes mellitus and lactic acid level. - Related Data Allergies/Adverse Reactions: Allergies Allergy/AdvReac Type Severity Reaction Status Date / Time duloxetine [From Cymbalta] Allergy Other Verified 01/11/18 11:47 Sulfa (Sulfonamide Allergy Hives Verified 01/11/18 11:47 Antibiotics) ezetimibe [From Zetia] AdvReac Nausea Verified 01/11/18 11:47 horseradish AdvReac Diarrhea Verified 01/11/18 11:47 losartan AdvReac Dizziness Verified 01/11/18 11:47 rosuvastatin [From Crestor] AdvReac Muscle Verified 01/11/18 11:47 Aches Home Medications: Home Meds Aspirin [Ecotrin] 81 mg PO DAILY 11/05/16 [History] Calcium Carbonate [Calcium] 600 mg PO BID 11/05/16 [History] Clopidogrel [Plavix] 75 mg PO DAILY 11/05/16 [History] Hydrochlorothiazide 25 mg PO DAILY 11/05/16 [History] Magnesium Amino Acid Chelate [Magnesium] 100 mg PO DAILY 11/05/16 [History] Metoprolol Succinate [Toprol XL] 100 mg PO DAILY 11/05/16 [History] [place]-3 Fatty Acids [Maxepa] 1,000 mg PO WITHDINNER 11/05/16 [History] [place]-3 Fatty Acids [Maxepa] 2,000 mg PO DAILY 11/05/16 [History] Sertraline [Zoloft] 100 mg PO DAILY 11/05/16 [History] amLODIPine [Norvasc] 5 mg PO DAILY 11/05/16 [History] buPROPion [Wellbutrin SR] 150 mg PO BID 11/05/16 [History] oxyCODONE HCl/Acetaminophen [Percocet 10-325 mg Tablet] 1 each PO Q6H PRN [History] Albuterol [Proair HFA] 2 puff INH Q4HR PRN 01/11/18 [History] Insulin Glargine,Hum.Rec.Anlog [Basaglar Kwikpen U-100] 31 unit SQ DAILY MDD pt has been titrating up 01/11/18 [History] glipiZIDE [Glucotrol] 10 mg PO DAILY 01/11/18 [History] metFORMIN HCl [Glucophage] 1,000 mg PO BID 01/11/18 [History] Past Medical History Cardiovascular History: Reports: CAD, High Cholesterol, Hypertension, Stents (2 stents, pt states he s unable to toilerate any statins) Respiratory History: Reports: COPD (pt has albuterol but has not used it in 8 months; pt unable to wlak more than 1/2 block bit is limited by joint pain, not dypsena) Gastrointestinal History: Reports: Other (See Below) Other Gastrointestinal History: obesity Musculoskeletal History: Reports: Arthritis (pt is on henson contract from Dr Mike Dash for joint pians. His worse joints are hips, knees, ankles.), Osteoarthritis, Other (See Below) Neurological History: Reports: Concussion, Other (See Below) (has had right carotid endartertomy) Psychiatric History: Reports: Depression (pt's committed suicide several years ago. Miguel in particular are hard.) Endocrine/Metabolic History: Reports: Diabetes, Type II (Pt was hospitalized within the last year for poorly controlled diabetes. He has titrated his glargine to 31 units daily and Fast[place] are about 120-130) Immunologic History: Reports: Other (See Below) (? seronegative RS noted on opt chart) - Past Surgical History Cardiovascular Surgical History: Reports: Coronary Artery Stent, Other (See Below) Musculoskeletal Surgical History: Reports: Arthroscopic Knee, Hip Replacement Social & Family History - Family History Family Medical History: Noncontributory HEENT: Reports: Cataract, Impaired Vision, Sinusitis Cardiac: Reports: CAD (father had rheumatic heart disease at age 44, had "heart attack" at age 74 Mother had MS at age 60 and at age 84 Brother of Mi last year at age 60), Stent Psychiatric: Reports: Other (See Below) (son committed suicide 5 years ago) - Tobacco Use Smoking Status *Q: Current Every Day Smoker Tobacco Use Within Last Twelve Months: Cigarettes (smokes 1/4 to 1/2 ppd for a few years, was heavier before for 50 years) Years of Tobacco use: 50 Packs/Tins Daily: 0.5 - Alcohol Use Days Per Week of Alcohol Use: 1 Number of Drinks Per Day: 4 Total Drinks Per Week: 4 - Recreational Drug Use Recreational Drug Use: No - Living Situation & Occupation 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 [facility], 1 in [facility]) H&P Review of Systems - Review of Systems: Review Of Systems: See Below General: Reports: Fever, Fatigue HEENT: Reports: No Symptoms Pulmonary: Reports: Shortness of Breath, Wheezing, Cough Cardiovascular: Reports: Chest Pain, Palpitations Gastrointestinal: Reports: No Symptoms Genitourinary: Reports: Other (slow urination) Musculoskeletal: Reports: Back Pain, Hand Pain, Foot Pain, Joint Pain, Other ( legs get cold every night below the knees) Skin: Reports: No Symptoms Psychiatric: Reports: Depression (pt has difficulty during the winter with feeling sad. he is now feeling better getting ready for spring; eats and sleep alrights presently) Neurological: Reports: No Symptoms Hematologic/Lymphatic: Reports: No Symptoms Immunologic: Reports: No Symptoms Exam - Exam Exam: See Below - Vital Signs Vital Signs: Last Vital Signs Temp 97.9 F 01/11/18 12:31 Pulse 74 04/29/18 12:31 Resp 17 01/11/18 12:31 BP 134/75 01/11/18 12:31 Pulse Ox 94 L 01/11/18 12:31 - Exam Quality Assessment: Supplemental Oxygen (on 4 l/m via cannula) General: Alert, Oriented, Cooperative HEENT: Conjunctiva Clear, Hearing Intact, Pupils Equal Neck: Supple, Trachea Midline, Carotid Bruit (bilateral bruits) Lungs: Normal Respiratory Effort, Rales, Rhonchi (rales and rhonchi rbilaterally in lower lobes, left more than right; diffuse mild scattered weheezingi), Wheezing GI/Abdominal Exam: Normal Bowel Sounds, Soft, Non-Tender, No Distention (Male) Exam: Normal Prostate Rectal (Males) Exam: Normal Rectal Tone Back Exam: Normal Inspection Extremities: Normal Range of Motion (bony deformity below both patella; ulnatr devation right wrist, mild pip joint swelling) Peripheral Pulses: 0: Dorsalis Pedis (L), Dorsalis Pedis (R), 1+: Popliteal (L) , Popliteal (R), 2+: Carotid (L), Carotid (R), Brachial (L), Brachial (R), Femoral (L), Femoral (R) Skin: Warm, Dry, Intact Neuro Extensive - Mental Status: Alert, Oriented x3, Normal Mood/Affect, Normal Cognition, Memory Intact, Nl Response to Commands Neuro Extensive - Motor, Sensory, Reflexes: CN II-XII Intact Psychiatric: Alert, Normal Affect, Normal Mood (senation to fine touch intact in feet, ) - Patient Data Lab Results Last 24 hrs: Laboratory Results - last 24 hr 01/11/18 01/11/18 01/11/18 Range/Units 11:30 11:30 11:30 WBC 16.3 H (4.0-10.0) x10^3/uL RBC 4.77 (4.5-6.0) x10^6/uL Hgb 15.0 D (14.0-18.0) g/dL Hct 44.1 (40.0-52.0) % MCV 92.5 (78.0-93.0) fL MCH 31.4 (26.0-32.0) pg MCHC 34.0 (32.0-36.0) g/dL RDW Coeff of Vijay 12.8 (10.0-15.0) % Plt Count 164 (130-400) x10^3/uL Neut % (Auto) 87.2 H (50.0-80.0) % Lymph % (Auto) 7.8 L (25.0-50.0) % [place] % (Auto) 4.1 (2.0-11.0) % Eos % (Auto) 0.6 (0.0-4.0) % Baso % (Auto) 0.3 (0.2-1.2) % Sodium 139 (136-145) mmol/L Potassium 4.5 (3.5-5.1) mmol/L Chloride 100 (98-107) mmol/L Carbon Dioxide 27 (21-32) mmol/L Anion Gap 16.5 (10-20) mmol/L BUN 17 (7-18) mg/dL Creatinine 1.5 H (0.70-1.30) mg/dL Est Cr Clr Drug Dosing TNP Estimated GFR (MDRD) 47 Glucose 191 H (74-106) mg/dL POC Glucose (74-106) mg/dL Lactic Acid 3.3 H* (0.4-2.0) mmol/L Calcium 9.4 (8.5-10.1) mg/dL Corrected Calcium 9.24 D (8.5-10.1) mg/dL Total Bilirubin 0.7 (0.2-1.0) mg/dL AST 29 (15-37) U/L ALT 34 (16-63) U/L Alkaline Phosphatase 89 (46-116) U/L Troponin I 0.029 (<=0.056) ng/mL NT-Pro-B Natriuret Pep 753 H (<=125) pg/mL Total Protein 8.9 H (6.4-8.2) g/dL Albumin 4.2 (3.4-5.0) g/dL Globulin 4.7 Albumin/Globulin Ratio 0.89 04/29/18 Range/Units 13:39 WBC (4.0-10.0) x10^3/uL RBC (4.5-6.0) x10^6/uL Hgb (14.0-18.0) g/dL Hct (40.0-52.0) % MCV (78.0-93.0) fL MCH (26.0-32.0) pg MCHC (32.0-36.0) g/dL RDW Coeff of [place]ij[place] (10.0-15.0) % Plt Count (130-400) x10^3/uL Neut % (Auto) (50.0-80.0) % Lymph % (Auto) (25.0-50.0) % [place] % (Auto) (2.0-11.0) % Eos % (Auto) (0.0-4.0) % Baso % (Auto) (0.2-1.2) % Sodium (136-145) mmol/L Potassium (3.5-5.1) mmol/L Chloride (98-107) mmol/L Carbon Dioxide (21-32) mmol/L Anion Gap (10-20) mmol/L BUN (7-18) mg/dL Creatinine (0.70-1.30) mg/dL Est Cr Clr Drug Dosing Estimated GFR (MDRD) Glucose (74-106) mg/dL POC Glucose 179 H (74-106) mg/dL Lactic Acid (0.4-2.0) mmol/L Calcium (8.5-10.1) mg/dL Corrected Calcium (8.5-10.1) mg/dL Total Bilirubin (0.2-1.0) mg/dL AST (15-37) U/L ALT (16-63) U/L Alkaline Phosphatase (46-116) U/L Troponin I (<=0.056) ng/mL NT-Pro-B Natriuret Pep (<=125) pg/mL Total Protein (6.4-8.2) g/dL Albumin (3.4-5.0) g/dL Globulin Albumin/Globulin Ratio Result Diagrams: 01/11/18 11:30 01/11/18 11:30 Piyush Results Last 24 hrs: Microbiology 01/11/18 11:30 Anaerobic Blood Culture - Final Blood - Venous Imaging Impressions Last 24 hrs: Probable left lower lobe infiltrate or atelectasis on chest x-ray 1 view - Problem List (1) Pneumonia SNOMED Code(s): 325536513 ICD Code: J18.9 - PNEUMONIA, UNSPECIFIED ORGANISM Status: Acute Priority : High Current Visit: Yes Problem Details: 1. Pneumonia: This is a community -acquired pneumonia superimposed on COPD and a host immunosuppressed by diabetes mellitus. This most recent hemoglobin A1c was 10 last month. It sounds however that his blood sugars have been under better control. In view of his hypoxia, white count with shift and elevated blood sugar, patient is admitted for treatment with IV antibiotics. He'll receive Rocephin IV every 24 and doxycycline 100 twice a day. He will receive albuterol 4 times a day and if his wheezing persists and worsens we'll start IV or by mouth steroids. We'll obtain sputum Gram stain and culture and await blood cultures. Patient will be given supplemental O2 with careful observation for CO2 narcosis. Qualifiers: Pneumonia type: due to unspecified organism Laterality: left Lung location: lower lobe of lung Qualified Code(s): J18.1 - Lobar pneumonia, unspecified organism (2) Diabetes mellitus SNOMED Code(s): 94970016 ICD Code: E11.9 - TYPE 2 DIABETES MELLITUS WITHOUT COMPLICATIONS Status: Acute Current Visit: Yes Problem Details: Patient states his fasting blood sugars have been the 120 range on combination of glargine 31 units a day metformin 1000 twice a day and glipizide 10 mg daily. Patient will continue on same and will check preprandial blood sugars to see if he needs additional small amounts of Humalog to cover his meals. Patient was given 3 units right after his meal today because of his receiving methylprednisolone 1 Qualifiers: Diabetes mellitus type: type 2 (3) CKD (chronic kidney disease) SNOMED Code(s): 178358236 ICD Code: N18.9 - CHRONIC KIDNEY DISEASE, UNSPECIFIED Status: Chronic Current Visit: Yes Problem Details: Patient's previous creatinines have been in the 1.3-1.4 range. I will avoid vancomycin as I believe patient has a outpatient. Community-acquired pneumonia. His respiratory rate, blood pressure, do not support the use of vancomycin for this presently. We'll continue with outpatient medications including metoprolol HCTZ amlodipine (4) COPD (chronic obstructive pulmonary disease) SNOMED Code(s): 05945977 ICD Code: J44.9 - CHRONIC OBSTRUCTIVE PULMONARY DISEASE, UNSPECIFIED Status : Acute Priority: High Current Visit: No Problem Details: Patient is having significant wheezing for the first time in almost a year. Responds well to inhaled bronchodilators and will continue same. Will add IV or by mouth steroids as needed (5) Depression SNOMED Code(s): 35364070 ICD Code: F32.9 - MAJOR DEPRESSIVE DISORDER, SINGLE EPISODE, UNSPECIFIED Status: Chronic Priority: Medium Current Visit: No Problem Details: Patient appears to be fairly compensated now. Will continue with present antidepressants. Patient and and I discussed CODE STATUS and he would like to be code 1. If however he is to be in a vegetative state he would want comfort measures only Problem List Initiated/Reviewed/Updated: Yes Orders Last 24hrs: Active Orders 24 hr Category Date Time Status Admission Status [Patient Status] [ADT] Routine ADT 01/11/18 12:34 Active RT Aerosol Therapy [RC] ASDIRECTED Care 01/11/18 11:31 Active Chest 1V Frontal [CR] Stat Exams 01/11/18 11:32 Taken CULTURE BLOOD [BC] Stat Lab 01/11/18 11:30 Results CULTURE BLOOD [BC] Stat Lab 01/11/18 11:40 Received Lactated Ringers [Ringers, Lactated] 1,000 ml Med 01/11/18 12:00 Active IV ASDIRECTED Blood Culture x2 Reflex Set [OM.PC] Stat Oth 01/11/18 11:32 Ordered Medication Orders Lactated Ringer's (Ringers, Lactated) 1,000 mls @ 150 mls/hr IV ASDIRECTED CESAR Last Admin: 01/11/18 12:00 Dose: 150 mls/hr
[2018-01-11] MEDS ORDERED: Insulin Aspart 100 Units/ML 3 ML Pen SUBCUT SCH (14:16)
[2018-01-11] MEDS ORDERED: Insulin Aspart 100 Units/ML 3 ML Pen SUBCUT ONE ×2 (15:00)
[2018-01-11] MEDS ORDERED: Oxybutynin 5 MG Tab PO PRN (15:05)
[2018-01-11] MEDS: Acetaminophen/oxyCODONE 325-5 MG Tab PO PRN (15:21)
[2018-01-11] MEDS: Doxycycline 100 MG Cap PO SCH ×2 (15:21→20:03)
[2018-01-11] MEDS: oxyCODONE 5 MG Tab PO PRN (15:22)
[2018-01-11] MEDS: Albuterol 0.083% 2.5 MG/3 ML Neb Soln NEB SCH ×3 (16:37→22:49)
[2018-01-11] MEDS: Insulin Aspart 100 Units/ML 3 ML Pen SUBCUT SCH (17:24)
[2018-01-11] MEDS: metFORMIN 500 MG Tab PO SCH (17:45)
[2018-01-11] MEDS: Ipratropium 0.02% 0.5 MG/2.5 ML Neb Soln NEB SCH (18:58)
[2018-01-11] MEDS: BASAGLAR SUBCUT SCH (19:57)
[2018-01-11] MEDS: buPROPion 100 MG Tab.SR PO SCH (20:03)
[2018-01-11] MEDS: Calcium Carbonate/Vitamin D3 1250 MG-200 Unit Tab PO SCH (20:05)
[2018-01-12] MEDS: Ipratropium 0.02% 0.5 MG/2.5 ML Neb Soln NEB SCH ×2 (00:58→07:14)
[2018-01-12] MEDS: Albuterol 0.083% 2.5 MG/3 ML Neb Soln NEB SCH ×2 (03:30→07:14)
[2018-01-12] MEDS: Insulin Aspart 100 Units/ML 3 ML Pen SUBCUT SCH (07:15)
[2018-01-12] MEDS ORDERED: MAGNESIUM AMINO ACID CHELATE PO SCH (08:00)
[2018-01-12] MEDS ORDERED: Insulin Detemir 100 Units/ML 3 ML Pen SUBCUT SCH (08:00)
[2018-01-12] MEDS: cefTRIAXone 1 GM Vial IVPUSH SCH (08:24)
[2018-01-12] MEDS: Doxycycline 100 MG Cap PO SCH ×2 (08:25→20:05)
[2018-01-12] MEDS: Magnesium Oxide 400 MG Tab PO SCH (08:25)
[2018-01-12] MEDS: Hydrochlorothiazide 25 MG Tab PO SCH (08:25)
[2018-01-12] MEDS: Calcium Carbonate/Vitamin D3 1250 MG-200 Unit Tab PO SCH ×2 (08:26→20:03)
[2018-01-12] MEDS: Aspirin 81 MG Tab.EC PO SCH (08:26)
[2018-01-12] MEDS: Sertraline 100 MG Tab PO SCH (08:26)
[2018-01-12] MEDS: buPROPion 100 MG Tab.SR PO SCH ×2 (08:26→20:05)
[2018-01-12] MEDS: metFORMIN 500 MG Tab PO SCH ×2 (08:26→17:35)
[2018-01-12] MEDS: Metoprolol Succinate 50 MG Tab.ER PO SCH (08:27)
[2018-01-12] MEDS: Clopidogrel 75 MG Tab PO SCH (08:28)
[2018-01-12] MEDS: amLODIPine 5 MG Tab PO SCH (08:28)
--- NOTE | 2018-01-12 09:54 | PCM.PN ---
- General Info Date of Service: 01/12/18 Admission Dx/Problem (Free Text): Admission Diagnosis/Problem Admission Diagnosis/Problem Pneumonia Subjective Update: Patient offers no specific complaints today. He states he is feeling somewhat better. He is starting to cough up yellow/brown sputum. He states his SOB is getting better as well. No issues with urination or BM's. He is tolerating his diet ok. He feels somewhat weak, but is trying to walk when he can. Patient denies any chest pain. Functional Status: Reports: Pain Controlled, Tolerating Diet, Ambulating, Urinating Pain Score: 0 - Review of Systems General: Denies: Fever, Weakness Pulmonary: Reports: Shortness of Breath, Cough, Sputum Cardiovascular: Denies: Chest Pain, Palpitations Gastrointestinal: Denies: Abdominal Pain, Nausea, Vomiting Skin: Reports: No Symptoms Neurological: Reports: No Symptoms. Denies: Dizziness, Headache - Patient Data Vitals - Most Recent: Last Vital Signs Temp 36.4 C 01/12/18 05:44 Pulse 79 01/12/18 08:27 Resp 20 01/12/18 05:44 BP 146/89 H 01/12/18 08:28 Pulse Ox 90 L 01/12/18 07:19 Weight - Most Recent: 89.471 kg I&O - Last 24 Hours: Intake & Output 01/11/18 01/12/18 01/12/18 22:59 06:59 14:59 Intake Total 1670 800 360 Output Total 300 2120 Balance 1370 -1320 360 Lab Results Last 24 Hours: Laboratory Results - last 24 hr 01/11/18 01/11/18 01/11/18 Range/Units 11:30 11:30 11:30 WBC 16.3 H (4.0-10.0) x10^3/uL RBC 4.77 (4.5-6.0) x10^6/uL Hgb 15.0 D (14.0-18.0) g/dL Hct 44.1 (40.0-52.0) % MCV 92.5 (78.0-93.0) fL MCH 31.4 (26.0-32.0) pg MCHC 34.0 (32.0-36.0) g/dL RDW Coeff of Vijay 12.8 (10.0-15.0) % Plt Count 164 (130-400) x10^3/uL Neut % (Auto) 87.2 H (50.0-80.0) % Lymph % (Auto) 7.8 L (25.0-50.0) % Crawford % (Auto) 4.1 (2.0-11.0) % Eos % (Auto) 0.6 (0.0-4.0) % Baso % (Auto) 0.3 (0.2-1.2) % Sodium 139 (136-145) mmol/L Potassium 4.5 (3.5-5.1) mmol/L Chloride 100 (98-107) mmol/L Carbon Dioxide 27 (21-32) mmol/L Anion Gap 16.5 (10-20) mmol/L BUN 17 (7-18) mg/dL Creatinine 1.5 H (0.70-1.30) mg/dL Est Cr Clr Drug Dosing TNP Estimated GFR (MDRD) 47 Glucose 191 H (74-106) mg/dL POC Glucose (74-106) mg/dL Lactic Acid 3.3 H* (0.4-2.0) mmol/L Calcium 9.4 (8.5-10.1) mg/dL Corrected Calcium 9.24 D (8.5-10.1) mg/dL Total Bilirubin 0.7 (0.2-1.0) mg/dL AST 29 (15-37) U/L ALT 34 (16-63) U/L Alkaline Phosphatase 89 (46-116) U/L Troponin I 0.029 (<=0.056) ng/mL NT-Pro-B Natriuret Pep 753 H (<=125) pg/mL Total Protein 8.9 H (6.4-8.2) g/dL Albumin 4.2 (3.4-5.0) g/dL Globulin 4.7 Albumin/Globulin Ratio 0.89 01/11/18 01/11/18 01/11/18 Range/Units 13:39 17:15 19:55 WBC (4.0-10.0) x10^3/uL RBC (4.5-6.0) x10^6/uL Hgb (14.0-18.0) g/dL Hct (40.0-52.0) % MCV (78.0-93.0) fL MCH (26.0-32.0) pg MCHC (32.0-36.0) g/dL RDW Coeff of Vijay (10.0-15.0) % Plt Count (130-400) x10^3/uL Neut % (Auto) (50.0-80.0) % Lymph % (Auto) (25.0-50.0) % Crawford % (Auto) (2.0-11.0) % Eos % (Auto) (0.0-4.0) % Baso % (Auto) (0.2-1.2) % Sodium (136-145) mmol/L Potassium (3.5-5.1) mmol/L Chloride (98-107) mmol/L Carbon Dioxide (21-32) mmol/L Anion Gap (10-20) mmol/L BUN (7-18) mg/dL Creatinine (0.70-1.30) mg/dL Est Cr Clr Drug Dosing Estimated GFR (MDRD) Glucose (74-106) mg/dL POC Glucose 179 H 308 H 304 H (74-106) mg/dL Lactic Acid (0.4-2.0) mmol/L Calcium (8.5-10.1) mg/dL Corrected Calcium (8.5-10.1) mg/dL Total Bilirubin (0.2-1.0) mg/dL AST (15-37) U/L ALT (16-63) U/L Alkaline Phosphatase (46-116) U/L Troponin I (<=0.056) ng/mL NT-Pro-B Natriuret Pep (<=125) pg/mL Total Protein (6.4-8.2) g/dL Albumin (3.4-5.0) g/dL Globulin Albumin/Globulin Ratio 01/12/18 01/12/18 01/12/18 Range/Units 06:12 06:13 06:13 WBC 10.0 (4.0-10.0) x10^3/uL RBC 4.13 L (4.5-6.0) x10^6/uL Hgb 13.1 L D (14.0-18.0) g/dL Hct 38.7 L (40.0-52.0) % MCV 93.7 H (78.0-93.0) fL MCH 31.7 (26.0-32.0) pg MCHC 33.9 (32.0-36.0) g/dL RDW Coeff of Vijay 12.5 (10.0-15.0) % Plt Count 139 (130-400) x10^3/uL Neut % (Auto) 83.2 H (50.0-80.0) % Lymph % (Auto) 9.9 L (25.0-50.0) % Crawford % (Auto) 6.8 (2.0-11.0) % Eos % (Auto) 0.0 (0.0-4.0) % Baso % (Auto) 0.1 L (0.2-1.2) % Sodium (136-145) mmol/L Potassium (3.5-5.1) mmol/L Chloride (98-107) mmol/L Carbon Dioxide (21-32) mmol/L Anion Gap (10-20) mmol/L BUN (7-18) mg/dL Creatinine (0.70-1.30) mg/dL Est Cr Clr Drug Dosing Estimated GFR (MDRD) Glucose (74-106) mg/dL POC Glucose 222 H (74-106) mg/dL Lactic Acid 3.4 H* (0.4-2.0) mmol/L Calcium (8.5-10.1) mg/dL Corrected Calcium (8.5-10.1) mg/dL Total Bilirubin (0.2-1.0) mg/dL AST (15-37) U/L ALT (16-63) U/L Alkaline Phosphatase (46-116) U/L Troponin I (<=0.056) ng/mL NT-Pro-B Natriuret Pep (<=125) pg/mL Total Protein (6.4-8.2) g/dL Albumin (3.4-5.0) g/dL Globulin Albumin/Globulin Ratio 01/12/18 Range/Units 06:13 WBC (4.0-10.0) x10^3/uL RBC (4.5-6.0) x10^6/uL Hgb (14.0-18.0) g/dL Hct (40.0-52.0) % MCV (78.0-93.0) fL MCH (26.0-32.0) pg MCHC (32.0-36.0) g/dL RDW Coeff of Vijay (10.0-15.0) % Plt Count (130-400) x10^3/uL Neut % (Auto) (50.0-80.0) % Lymph % (Auto) (25.0-50.0) % Crawford % (Auto) (2.0-11.0) % Eos % (Auto) (0.0-4.0) % Baso % (Auto) (0.2-1.2) % Sodium 141 (136-145) mmol/L Potassium 4.7 (3.5-5.1) mmol/L Chloride 102 (98-107) mmol/L Carbon Dioxide 27 (21-32) mmol/L Anion Gap 16.7 (10-20) mmol/L BUN 28 H (7-18) mg/dL Creatinine 1.5 H (0.70-1.30) mg/dL Est Cr Clr Drug Dosing 51.37 Estimated GFR (MDRD) 47 Glucose 221 H (74-106) mg/dL POC Glucose (74-106) mg/dL Lactic Acid (0.4-2.0) mmol/L Calcium 9.3 (8.5-10.1) mg/dL Corrected Calcium (8.5-10.1) mg/dL Total Bilirubin (0.2-1.0) mg/dL AST (15-37) U/L ALT (16-63) U/L Alkaline Phosphatase (46-116) U/L Troponin I (<=0.056) ng/mL NT-Pro-B Natriuret Pep (<=125) pg/mL Total Protein (6.4-8.2) g/dL Albumin (3.4-5.0) g/dL Globulin Albumin/Globulin Ratio Piyush Results Last 24 Hours: Microbiology 01/11/18 11:30 Anaerobic Blood Culture - Final Blood - Venous Med Orders - Current: Current Medications Albuterol/Ipratropium (Duoneb 3.0-0.5 Mg/3 Ml) 3 ml NEB Q4HRRT [facility] Amlodipine Besylate (Norvasc) 5 mg PO DAILY [facility] Last Admin: 01/12/18 08:28 Dose: 5 mg Aspirin (Halfprin) 81 mg PO DAILY [facility] Last Admin: 01/12/18 08:26 Dose: 81 mg Bupropion HCl (Wellbutrin Sr) 150 mg PO BID [facility] Last Admin: 01/12/18 08:26 Dose: 150 mg Calcium Carbonate (Calcium Carbonate/Vitamin D 1250 Mg-200 Unit) 1 tab PO BID [facility] Last Admin: 01/12/18 08:26 Dose: 1 tab Ceftriaxone Sodium (Rocephin) 1 gm IVPUSH DAILY [facility] Last Admin: 01/12/18 08:24 Dose: 1 gm Clopidogrel Bisulfate (Plavix) 75 mg PO DAILY [facility] Last Admin: 01/12/18 08:28 Dose: 75 mg Doxycycline Hyclate (Vibramycin) 100 mg PO BID [facility] Last Admin: 01/12/18 08:25 Dose: 100 mg Glipizide (Glucotrol) 10 mg PO DAILY [facility] Last Admin: 01/12/18 08:28 Dose: 10 mg Hydrochlorothiazide (Hydrochlorothiazide) 25 mg PO DAILY [facility] Last Admin: 01/12/18 08:25 Dose: 25 mg Lactated Ringer's (Ringers, Lactated) 1,000 mls @ 125 mls/hr IV ASDIRECTED [facility] Insulin Human Regular (Humulin R) 0 unit SUBCUT TIDMEALS [facility]; Protocol Magnesium Oxide (Magnesium Oxide) 100 mg PO DAILY [facility] Last Admin: 01/12/18 08:25 Dose: 100 mg Metformin HCl (Glucophage) 1,000 mg PO BIDMEALS [facility] Last Admin: 01/12/18 08:26 Dose: 1,000 mg Metoprolol Succinate (Toprol Xl) 100 mg PO DAILY [facility] Last Admin: 01/12/18 08:27 Dose: 100 mg BasaglarOwn Med 0 each SUBCUT BEDTIME [facility] Last Admin: 01/11/18 19:57 Dose: 31 each Oxycodone HCl (Oxycodone) 5 mg PO Q6H PRN PRN Reason: PAIN Last Admin: 01/11/18 15:22 Dose: 5 mg Oxycodone/Acetaminophen (Percocet 325-5 Mg) 1 tab PO Q6H PRN PRN Reason: PAIN Last Admin: 01/11/18 15:21 Dose: 1 tab Sertraline HCl (Zoloft) 100 mg PO DAILY [facility] Last Admin: 01/12/18 08:26 Dose: 100 mg Discontinued Medications Albuterol (Proventil Neb Soln) 2.5 mg NEB Q4HRRT [facility] Last Admin: 01/12/18 07:14 Dose: 2.5 mg Albuterol/Ipratropium (Duoneb 3.0-0.5 Mg/3 Ml) 3 ml NEB ONETIME ONE Stop: 01/11/18 11:32 Last Admin: 01/11/18 11:32 Dose: 3 ml Ceftriaxone Sodium (Rocephin) 1 gm IVPUSH ONETIME ONE Stop: 01/11/18 11:47 Last Admin: 01/11/18 12:01 Dose: 1 gm Lactated Ringer's (Ringers, Lactated) 1,000 mls @ 150 mls/hr IV ASDIRECTED [facility] Last Admin: 01/11/18 12:00 Dose: 150 mls/hr Vancomycin HCl 1,250 mg/ (Sodium Chloride) 250 mls @ 200 mls/hr IV ONETIME ONE Stop: 01/11/18 13:29 Last Admin: 01/11/18 12:28 Dose: 200 mls/hr Insulin Aspart (Novolog) 5 unit SUBCUT TIDMEALS [facility] Last Admin: 01/11/18 15:01 Dose: Not Given Insulin Aspart (Novolog) 3 unit SUBCUT ONETIME ONE Stop: 01/11/18 15:01 Last Admin: 01/11/18 15:09 Dose: 3 units Insulin Aspart (Novolog) 3 unit SUBCUT TIDMEALS ONE Stop: 01/11/18 15:01 Last Admin: 01/11/18 15:19 Dose: Not Given Insulin Aspart (Novolog) 3 unit SUBCUT TID@0715,1115,1715 [facility] Last Admin: 01/12/18 07:15 Dose: 3 units Ipratropium [place] (Atrovent) 0.5 mg NEB Q6HRRT [facility] Last Admin: 01/12/18 07:14 Dose: 0.5 mg Methylprednisolone Sodium Succinate (Solu-Medrol) 125 mg IVPUSH ONETIME ONE Stop: 01/11/18 11:32 Last Admin: 01/11/18 11:37 Dose: 125 mg - Exam Quality Assessment: Supplemental Oxygen General: Alert, Oriented, Cooperative, No Acute Distress Neck: Supple Lungs: Normal Respiratory Effort, Decreased Breath Sounds (throughout), Wheezing (Left upper and lower lobes) Cardiovascular: Regular Rate, Regular Rhythm GI/Abdominal Exam: Normal Bowel Sounds, Soft, Non-Tender Peripheral Pulses: 2+: Radial (L), Radial (R) Skin: Warm, Dry, Intact Neurological: No New Focal Deficit - Problem List & Annotations (1) Pneumonia SNOMED Code(s): 497176169 Code(s): J18.9 - PNEUMONIA, UNSPECIFIED ORGANISM Status: Acute Priority: High Current Visit: Yes Qualifiers: Pneumonia type: due to unspecified organism Laterality: left Lung location: lower lobe of lung Qualified Code(s): J18.1 - Lobar pneumonia, unspecified organism Annotation/Comment:: 1. Pneumonia: This is a community-acquired pneumonia superimposed on COPD and a host immunosuppressed by diabetes mellitus. This most recent hemoglobin A1c was 10 last month. It sounds however that his blood sugars have been under better control. In view of his hypoxia, white count with shift and elevated blood sugar, patient was admitted for treatment with IV antibiotics. Will continue Rocephin IV every 24 and doxycycline 100 twice a day. Will change to DuoNebs every 4 hours. Sputum Gram stain and culture was obtained today and still awaiting blood cultures. Patient will be given supplemental O2 with careful observation for CO2 narcosis. 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 Will discontinue scheduled SQ insulin and start patient on High Dose sliding scale for better coverage, high blood sugars, and due to acute illness. Would like to see his blood sugars remain less than 200 consistently. May consider increasing Basaglar to 35U daily. (3) CKD (chronic kidney disease) SNOMED Code(s): 900941350 Code(s): N18.9 - CHRONIC KIDNEY DISEASE, UNSPECIFIED Status: Chronic Current Visit: Yes Annotation/Comment:: Patient's previous creatinines have been in the 1.3-1.4 range. Avoid vancomycin at this point. His respiratory rate , blood pressure, do not support the use of vancomycin for this presently. We' ll continue with outpatient medications including metoprolol HCTZ amlodipine. Creatinine slightly elevated with BUN up to 28 today. Will give IVF for hydration as patient's PO intake has been poor since admission. (4) COPD (chronic obstructive pulmonary disease) SNOMED Code(s): 44402943 Code(s): J44.9 - CHRONIC OBSTRUCTIVE PULMONARY DISEASE, UNSPECIFIED Status : Acute Priority: High Current Visit: No Annotation/Comment:: Patient continues to have wheezing, but improved from yesterday. Will changes nebs to DuoNebs Q4H. Will wait on steroids as blood sugars are not well controlled at this point. Encourage C/DB and I.S. every 2 hours. (5) Depression SNOMED Code(s): 78733726 Code(s): F32.9 - MAJOR DEPRESSIVE DISORDER, SINGLE EPISODE, UNSPECIFIED Status: Chronic Priority: Medium Current Visit: No Qualifiers: Depression Type: major depressive disorder Major depression recurrence: recurrent Active/Remission status: currently active Psychotic features: without psychotic features Annotation/Comment:: Continue currently medications as patient seemed to be doing well with regimen - Problem List Review Problem List Initiated/Reviewed/Updated: Yes - My Orders Last 24 Hours: My Active Orders 01/12/18 08:45 Lactated Ringers [Ringers, Lactated] 1,000 ml IV ASDIRECTED 01/12/18 11:00 Albuterol/Ipratropium [DuoNeb 3.0-0.5 MG/3 ML] 3 ml NEB Q4HRRT 01/12/18 12:00 Insulin Regular, Human [HumuLIN R] See Protocol SUBCUT TIDMEALS - Assessment Assessment:: CAP DM uncontrolled HTN CKD Dyslipidemia - Plan Plan:: 62-year-old male patient with a past medical history of uncontrolled diabetes, hypertension, dyslipidemia, COPD, and depression is admitted to the acute care floor at [facility] with a primary diagnosis of community-acquired pneumonia. Overall the patient states he is feeling somewhat better today. I will start the patient on IV fluids due to a slight bump in his creatinine and BUN. We will change the patient to DuoNebs every 4 hours. I will start the patient on a high-dose sliding scale insulin for better control of his blood sugars especially during acute illness. Stop scheduled SQ insulin. Encourage cough and deep breathing and incentive spirometry every 2 hours. The patient needs to get up and walk more today. I do anticipate the patient will be with us for the next couple of days. We will continue acute care is for now. The patient is a code 1. The patient does wish to be transferred to a higher level of care should the need arise. Recheck blood work and chest xray tomorrow morning. Patient may need an increase in his Basaglar if his sugars remain high. Lactic acid remains high partly due to elevated blood sugars. Will continue to monitor. NOTE: This patient was seen and examined today by me as an [facility] provider
[2018-01-12] MEDS: Albuterol/Ipratropium 3.0-0.5 MG/3 ML Neb Soln NEB SCH ×4 (10:59→22:31)
[2018-01-12] MEDS: Insulin Regular, Human 100 Units/ML 3 ML Vial SUBCUT SCH ×2 (11:40→17:35)
[2018-01-12] MEDS: Lactated Ringers 1,000 ML IV SCH (17:36)
[2018-01-12] MEDS: Acetaminophen/oxyCODONE 325-5 MG Tab PO PRN (20:03)
[2018-01-12] MEDS: BASAGLAR SUBCUT SCH (20:11)
[2018-01-12] MEDS: oxyCODONE 5 MG Tab PO PRN (20:14)
[2018-01-13] MEDS: Lactated Ringers 1,000 ML IV SCH ×3 (01:40→20:06)
[2018-01-13] MEDS: Acetaminophen/oxyCODONE 325-5 MG Tab PO PRN ×3 (02:44→15:25)
[2018-01-13] MEDS: oxyCODONE 5 MG Tab PO PRN ×3 (02:45→15:24)
[2018-01-13] MEDS: Albuterol/Ipratropium 3.0-0.5 MG/3 ML Neb Soln NEB SCH ×6 (02:46→23:08)
[2018-01-13] MEDS ORDERED: Magnesium Sulfate/Water 2 GM in Premix Bag 1 BAG IV ONE (07:24)
[2018-01-13] MEDS: cefTRIAXone 1 GM Vial IVPUSH SCH (07:50)
[2018-01-13] MEDS: Doxycycline 100 MG Cap PO SCH ×2 (07:55→20:51)
[2018-01-13] MEDS: Metoprolol Succinate 50 MG Tab.ER PO SCH (07:55)
[2018-01-13] MEDS: Clopidogrel 75 MG Tab PO SCH (07:56)
[2018-01-13] MEDS: buPROPion 100 MG Tab.SR PO SCH ×2 (07:56→20:50)
[2018-01-13] MEDS: amLODIPine 5 MG Tab PO SCH (07:56)
[2018-01-13] MEDS: Hydrochlorothiazide 25 MG Tab PO SCH (07:56)
[2018-01-13] MEDS: Aspirin 81 MG Tab.EC PO SCH (07:57)
[2018-01-13] MEDS: metFORMIN 500 MG Tab PO SCH ×2 (07:57→17:26)
[2018-01-13] MEDS: Calcium Carbonate/Vitamin D3 1250 MG-200 Unit Tab PO SCH ×2 (07:57→20:51)
[2018-01-13] MEDS: Sertraline 100 MG Tab PO SCH (07:58)
[2018-01-13] MEDS: Insulin Regular, Human 100 Units/ML 3 ML Vial SUBCUT SCH ×3 (07:58→17:28)
[2018-01-13] MEDS: Magnesium Oxide 400 MG Tab PO SCH (09:12)
[2018-01-13] MEDS ORDERED: Lactated Ringers 1,000 ML IV ONE (10:36)
--- NOTE | 2018-01-13 11:26 | PCM.PN ---
- General Info Date of Service: 01/13/18 Admission Dx/Problem (Free Text): Admission Diagnosis/Problem Admission Diagnosis/Problem Pneumonia Subjective Update: Patient states that he is feeling better today. The patient is concerned that he is not able to expectorate any sputum. The patient is not complaining of any shortness of breath. The patient is however having loose watery stools. The patient denies any abdominal pain. No dizziness. The patient denies any issues with urination or bowel movements. The patient is tolerating his diet okay otherwise no other concerns. Functional Status: Reports: Pain Controlled, Tolerating Diet, Ambulating, Urinating - Review of Systems General: Denies: Fever, Weakness, Chills Pulmonary: Reports: Shortness of Breath, Cough. Denies: Sputum Cardiovascular: Denies: Chest Pain, Palpitations Gastrointestinal: Reports: Diarrhea. Denies: Abdominal Pain, Nausea, Vomiting Skin: Reports: No Symptoms Neurological: Reports: No Symptoms - Patient Data Vitals - Most Recent: Last Vital Signs Temp 36.9 C 01/13/18 09:54 Pulse 72 01/13/18 09:54 Resp 16 01/13/18 09:54 BP 149/74 H 01/13/18 09:54 Pulse Ox 94 L 01/13/18 09:54 Weight - Most Recent: 89.471 kg I&O - Last 24 Hours: Intake & Output 01/12/18 01/13/18 01/13/18 22:59 06:59 14:59 Intake Total 2138 420 Output Total 400 800 Balance -400 1338 420 Lab Results Last 24 Hours: Laboratory Results - last 24 hr 01/12/18 01/12/18 01/12/18 Range/Units 11:27 16:34 20:22 WBC (4.0-10.0) x10^3/uL RBC (4.5-6.0) x10^6/uL Hgb (14.0-18.0) g/dL Hct (40.0-52.0) % MCV (78.0-93.0) fL MCH (26.0-32.0) pg MCHC (32.0-36.0) g/dL RDW Coeff of Vijay (10.0-15.0) % Plt Count (130-400) x10^3/uL Neut % (Auto) (50.0-80.0) % Lymph % (Auto) (25.0-50.0) % [place] % (Auto) (2.0-11.0) % Eos % (Auto) (0.0-4.0) % Baso % (Auto) (0.2-1.2) % Sodium (136-145) mmol/L Potassium (3.5-5.1) mmol/L Chloride (98-107) mmol/L Carbon Dioxide (21-32) mmol/L Anion Gap (10-20) mmol/L BUN (7-18) mg/dL Creatinine (0.70-1.30) mg/dL Est Cr Clr Drug Dosing mL/min Estimated GFR (MDRD) Glucose (74-106) mg/dL POC Glucose 100 143 H 147 H (74-106) mg/dL Lactic Acid (0.4-2.0) mmol/L Calcium (8.5-10.1) mg/dL Magnesium (1.8-2.4) mg/dL 01/13/18 01/13/18 01/13/18 Range/Units 05:34 06:48 06:48 WBC 9.2 (4.0-10.0) x10^3/uL RBC 4.30 L (4.5-6.0) x10^6/uL Hgb 13.6 L (14.0-18.0) g/dL Hct 40.4 (40.0-52.0) % MCV 94.0 H (78.0-93.0) fL MCH 31.6 (26.0-32.0) pg MCHC 33.7 (32.0-36.0) g/dL RDW Coeff of [place]ij[place] 12.8 (10.0-15.0) % Plt Count 141 (130-400) x10^3/uL Neut % (Auto) 68.6 (50.0-80.0) % Lymph % (Auto) 23.4 L (25.0-50.0) % [place] % (Auto) 6.2 (2.0-11.0) % Eos % (Auto) 1.5 (0.0-4.0) % Baso % (Auto) 0.3 (0.2-1.2) % Sodium 141 (136-145) mmol/L Potassium 4.0 (3.5-5.1) mmol/L Chloride 100 (98-107) mmol/L Carbon Dioxide 31 (21-32) mmol/L Anion Gap 14.0 (10-20) mmol/L BUN 26 H (7-18) mg/dL Creatinine 1.5 H (0.70-1.30) mg/dL Est Cr Clr Drug Dosing 51.37 mL/min Estimated GFR (MDRD) 47 Glucose 163 H (74-106) mg/dL POC Glucose 84 (74-106) mg/dL Lactic Acid (0.4-2.0) mmol/L Calcium 9.3 (8.5-10.1) mg/dL Magnesium 1.3 L (1.8-2.4) mg/dL 01/13/18 01/13/18 Range/Units 06:48 10:54 WBC (4.0-10.0) x10^3/uL RBC (4.5-6.0) x10^6/uL Hgb (14.0-18.0) g/dL Hct (40.0-52.0) % MCV (78.0-93.0) fL MCH (26.0-32.0) pg MCHC (32.0-36.0) g/dL RDW Coeff of [place] (10.0-15.0) % Plt Count (130-400) x10^3/uL Neut % (Auto) (50.0-80.0) % Lymph % (Auto) (25.0-50.0) % [place] % (Auto) (2.0-11.0) % Eos % (Auto) (0.0-4.0) % Baso % (Auto) (0.2-1.2) % Sodium (136-145) mmol/L Potassium (3.5-5.1) mmol/L Chloride (98-107) mmol/L Carbon Dioxide (21-32) mmol/L Anion Gap (10-20) mmol/L BUN (7-18) mg/dL Creatinine (0.70-1.30) mg/dL Est Cr Clr Drug Dosing mL/min Estimated GFR (MDRD) Glucose (74-106) mg/dL POC Glucose 63 L (74-106) mg/dL Lactic Acid 1.5 (0.4-2.0) mmol/L Calcium (8.5-10.1) mg/dL Magnesium (1.8-2.4) mg/dL Piyush Results Last 24 Hours: Microbiology 01/12/18 11:30 Gram Stain - Final Sputum - Induced Sputum Culture - Preliminary Streptococcus Species Streptococcus Species#2 01/11/18 11:40 Aerobic Blood Culture - Preliminary Blood - Venous - Lab Draw NO GROWTH AFTER 1 DAY Anaerobic Blood Culture - Preliminary NO GROWTH AFTER 1 DAY 01/11/18 11:30 Aerobic Blood Culture - Preliminary Blood - Venous NO GROWTH AFTER 1 DAY Anaerobic Blood Culture - Final Med Orders - Current: Current Medications Albuterol/Ipratropium (Duoneb 3.0-0.5 Mg/3 Ml) 3 ml NEB Q4HRRT [facility] Last Admin: 01/13/18 10:49 Dose: 3 ml Amlodipine Besylate (Norvasc) 5 mg PO DAILY [facility] Last Admin: 01/13/18 07:56 Dose: 5 mg Aspirin (Halfprin) 81 mg PO DAILY [facility] Last Admin: 01/13/18 07:57 Dose: 81 mg Bupropion HCl (Wellbutrin Sr) 150 mg PO BID [facility] Last Admin: 01/13/18 07:56 Dose: 150 mg Calcium Carbonate (Calcium Carbonate/Vitamin D 1250 Mg-200 Unit) 1 tab PO BID [facility] Last Admin: 01/13/18 07:57 Dose: 1 tab Ceftriaxone Sodium (Rocephin) 1 gm IVPUSH DAILY [facility] Last Admin: 01/13/18 07:50 Dose: 1 gm Clopidogrel Bisulfate (Plavix) 75 mg PO DAILY [facility] Last Admin: 01/13/18 07:56 Dose: 75 mg Doxycycline Hyclate (Vibramycin) 100 mg PO BID [facility] Last Admin: 01/13/18 07:55 Dose: 100 mg Glipizide (Glucotrol) 10 mg PO DAILY [facility] Last Admin: 01/13/18 07:57 Dose: 10 mg Hydrochlorothiazide (Hydrochlorothiazide) 25 mg PO DAILY [facility] Last Admin: 01/13/18 07:56 Dose: 25 mg Lactated Ringer's (Ringers, Lactated) 1,000 mls @ 125 mls/hr IV ASDIRECTED [facility] Last Admin: 01/13/18 01:40 Dose: 125 mls/hr Lactated Ringer's (Ringers, Lactated) 1,000 mls @ 999 mls/hr IV ONETIME ONE Stop: 01/13/18 11:36 Last Admin: 01/13/18 10:57 Dose: 999 mls/hr Insulin Human Regular (Humulin R) 0 unit SUBCUT TIDMEALS [facility]; Protocol Last Admin: 01/13/18 07:58 Dose: Not Given Lactobacillus Rhamnosus (Culturelle) 1 cap PO DAILY@1200 CESAR Magnesium Oxide (Magnesium Oxide) 100 mg PO DAILY [facility] Last Admin: 01/13/18 09:12 Dose: Not Given Metformin HCl (Glucophage) 1,000 mg PO BIDMEALS [facility] Last Admin: 01/13/18 07:57 Dose: 1,000 mg Metoprolol Succinate (Toprol Xl) 100 mg PO DAILY [facility] Last Admin: 01/13/18 07:55 Dose: 100 mg BasaglarOwn Med 0 each SUBCUT BEDTIME [facility] Last Admin: 01/12/18 20:11 Dose: 31 each Oxycodone HCl (Oxycodone) 5 mg PO Q6H PRN PRN Reason: PAIN Last Admin: 01/13/18 09:17 Dose: 5 mg Oxycodone/Acetaminophen (Percocet 325-5 Mg) 1 tab PO Q6H PRN PRN Reason: PAIN Last Admin: 01/13/18 09:16 Dose: 1 tab Sertraline HCl (Zoloft) 100 mg PO DAILY [facility] Last Admin: 01/13/18 07:58 Dose: 100 mg Discontinued Medications Albuterol (Proventil Neb Soln) 2.5 mg NEB Q4HRRT [facility] Last Admin: 01/12/18 07:14 Dose: 2.5 mg Albuterol/Ipratropium (Duoneb 3.0-0.5 Mg/3 Ml) 3 ml NEB ONETIME ONE Stop: 01/11/18 11:32 Last Admin: 01/11/18 11:32 Dose: 3 ml Ceftriaxone Sodium (Rocephin) 1 gm IVPUSH ONETIME ONE Stop: 01/11/18 11:47 Last Admin: 01/11/18 12:01 Dose: 1 gm Lactated Ringer's (Ringers, Lactated) 1,000 mls @ 150 mls/hr IV ASDIRECTED [facility] Last Admin: 01/11/18 12:00 Dose: 150 mls/hr Vancomycin HCl 1,250 mg/ (Sodium Chloride) 250 mls @ 200 mls/hr IV ONETIME ONE Stop: 01/11/18 13:29 Last Admin: 01/11/18 12:28 Dose: 200 mls/hr Magnesium Sulfate 2 gm/ Premix 50 mls @ 25 mls/hr IV ONETIME ONE Stop: 01/13/18 09:23 Last Admin: 01/13/18 07:48 Dose: 25 mls/hr Insulin Aspart (Novolog) 5 unit SUBCUT TIDMEALS [facility] Last Admin: 01/11/18 15:01 Dose: Not Given Insulin Aspart (Novolog) 3 unit SUBCUT ONETIME ONE Stop: 01/11/18 15:01 Last Admin: 01/11/18 15:09 Dose: 3 units Insulin Aspart (Novolog) 3 unit SUBCUT TIDMEALS ONE Stop: 01/11/18 15:01 Last Admin: 01/11/18 15:19 Dose: Not Given Insulin Aspart (Novolog) 3 unit SUBCUT TID@0715,1115,1715 [facility] Last Admin: 01/12/18 07:15 Dose: 3 units Ipratropium [place] (Atrovent) 0.5 mg NEB Q6HRRT [facility] Last Admin: 01/12/18 07:14 Dose: 0.5 mg Methylprednisolone Sodium Succinate (Solu-Medrol) 125 mg IVPUSH ONETIME ONE Stop: 01/11/18 11:32 Last Admin: 01/11/18 11:37 Dose: 125 mg - Exam Quality Assessment: Supplemental Oxygen General: Alert, Oriented, Cooperative, No Acute Distress Lungs: Normal Respiratory Effort, Decreased Breath Sounds. No: Wheezing Cardiovascular: Regular Rate, Regular Rhythm GI/Abdominal Exam: Normal Bowel Sounds, Soft, Non-Tender Peripheral Pulses: 2+: Radial (L), Radial (R) Skin: Warm, Dry, Intact Neurological: No New Focal Deficit - Problem List & Annotations (1) Pneumonia SNOMED Code(s): 319686643 Code(s): J18.9 - PNEUMONIA, UNSPECIFIED ORGANISM Status: Acute Priority: High Current Visit: Yes Qualifiers: Pneumonia type: due to unspecified organism Laterality: left Lung location: lower lobe of lung Qualified Code(s): J18.1 - Lobar pneumonia, unspecified organism Annotation/Comment:: 1. Pneumonia: This is a community-acquired pneumonia superimposed on COPD and a host immunosuppressed by diabetes mellitus. This most recent hemoglobin A1c was 10 last month. It sounds however that his blood sugars have been under better control. In view of his hypoxia, white count with shift and elevated blood sugar, patient was admitted for treatment with IV antibiotics. Will continue Rocephin IV every 24 and doxycycline 100 twice a day. Will change to DuoNebs every 4 hours. Sputum Gram stain and culture showed Strep; patient is on the appropriate abx therapy. Patient will be given supplemental O2, he is down to 1L. (2) Diabetes mellitus SNOMED Code(s): 63918709 Code(s): E11.9 - TYPE 2 DIABETES MELLITUS WITHOUT COMPLICATIONS Status: Acute Priority: Medium Current Visit: Yes Qualifiers: Diabetes mellitus type: type 2 Diabetes mellitus shelter insulin use: with shelter use Diabetes mellitus complication status: without complication Qualified Code(s): E11.9 - Type 2 diabetes mellitus without complications; Z79.4 - USP (current) use of insulin Annotation/Comment:: Blood sugars under better control. Will continue with high dose SSI during acute illness. Continue to monitor blood sugars as ordered. (3) CKD (chronic kidney disease) SNOMED Code(s): 198372967 Code(s): N18.9 - CHRONIC KIDNEY DISEASE, UNSPECIFIED Status: Chronic Current Visit: Yes Annotation/Comment:: BUN elevated today, creatinine remains at 1.5. Will give 1L bolus of LR for elevated BUN and recheck labs tomorrow; avoid NSAIDS; continue currently abx therapy. (4) COPD (chronic obstructive pulmonary disease) SNOMED Code(s): 96198863 Code(s): J44.9 - CHRONIC OBSTRUCTIVE PULMONARY DISEASE, UNSPECIFIED Status : Acute Priority: High Current Visit: No Annotation/Comment:: Wheezing resolved and improved from yesterday. Continue DuoNebs Q4H. Will wait on steroids as blood sugars are not well controlled at this point. Encourage C/DB and I.S. every 2 hours. Will consider LABA at time of discharge. Patient will need full PFT once he is well. (5) Depression SNOMED Code(s): 13155355 Code(s): F32.9 - MAJOR DEPRESSIVE DISORDER, SINGLE EPISODE, UNSPECIFIED Status: Chronic Priority: Medium Current Visit: No Qualifiers: Depression Type: major depressive disorder Major depression recurrence: recurrent Active/Remission status: currently active Psychotic features: without psychotic features Annotation/Comment:: Continue currently medications as patient seemed to be doing well with regimen - Problem List Review Problem List Initiated/Reviewed/Updated: Yes - My Orders Last 24 Hours: My Active Orders 01/12/18 11:00 Albuterol/Ipratropium [DuoNeb 3.0-0.5 MG/3 ML] 3 ml NEB Q4HRRT 01/12/18 12:00 Insulin Regular, Human [HumuLIN R] See Protocol SUBCUT TIDMEALS 01/13/18 08:00 Chest 2V [CR] Routine 01/13/18 10:36 Lactated Ringers [Ringers, Lactated] 1,000 ml IV ONETIME 01/13/18 11:18 C DIFFICILE TOXIN BY PCR [MREF] Routine STOOL CULTURE/SHIGA TOXIN [MREF] Routine 01/13/18 12:00 Lactobacillus Rhamnosus GG [Culturelle] 1 cap PO DAILY@1200 - Assessment Assessment:: CAP DM uncontrolled HTN CKD Dyslipidemia - Plan Plan:: 62-year-old male patient with a past medical history of uncontrolled diabetes, hypertension, dyslipidemia, COPD, and depression is admitted to the acute care floor at [facility] with a primary diagnosis of community-acquired pneumonia. Overall the patient states he is feeling somewhat better today. We' ll give the patient a 1 L bolus of lactated Ringer's and continue IV fluids at current rate. We will check the patient's stool for culture and C. difficile for active diarrhea and being on antibiotic therapy. We will check the patient' s oxygen saturations while walking the hallways off oxygen. The patient will need a full PFT once he is discharged and well. I do suspect the patient will need a long-acting beta agonist once discharged. The patient states that he feels his breathing is much improved after he gets his dual nebs. The sputum culture grew strep pneumoniae, so continue on the Rocephin and doxycycline. Continue to encourage cough and deep breathing and using his incentive spirometry. I would like to see the patient out of bed more and ambulating. Patient's blood sugars are under better control since switching to the high-dose insulin. The patient may need to have his Basaglar increased at time of discharge. We will continue acute cares for now. I do anticipated discharge home tomorrow if the patient continues to do well. We will recheck chemistries and hematology in the morning. NOTE: This patient was seen and examined today by me as an [facility] provider
[2018-01-13] MEDS: Lactobacillus Rhamnosus GG (Probiotic) Cap PO SCH (12:06)
[2018-01-13] MEDS ORDERED: Non-Formulary Medication 1 Each IM ONE (17:54)
[2018-01-13] MEDS: BASAGLAR SUBCUT SCH (21:04)
[2018-01-14] MEDS: Albuterol/Ipratropium 3.0-0.5 MG/3 ML Neb Soln NEB SCH ×3 (02:33→10:47)
[2018-01-14] MEDS: oxyCODONE 5 MG Tab PO PRN ×2 (02:33→08:14)
[2018-01-14] MEDS: Acetaminophen/oxyCODONE 325-5 MG Tab PO PRN ×2 (02:35→08:13)
[2018-01-14] MEDS: Lactated Ringers 1,000 ML IV SCH (03:40)
[2018-01-14 05:17] VITALS: BP 118/83
[2018-01-14] MEDS: amLODIPine 5 MG Tab PO SCH (07:32)
[2018-01-14] MEDS: Calcium Carbonate/Vitamin D3 1250 MG-200 Unit Tab PO SCH (07:32)
[2018-01-14] MEDS: cefTRIAXone 1 GM Vial IVPUSH SCH (07:32)
[2018-01-14] MEDS: Hydrochlorothiazide 25 MG Tab PO SCH (07:32)
[2018-01-14] MEDS: Sertraline 100 MG Tab PO SCH (07:32)
[2018-01-14] MEDS: Doxycycline 100 MG Cap PO SCH (07:32)
[2018-01-14] MEDS: Magnesium Oxide 400 MG Tab PO SCH (07:32)
[2018-01-14] MEDS: Insulin Regular, Human 100 Units/ML 3 ML Vial SUBCUT SCH ×2 (07:33→11:41)
[2018-01-14] MEDS: metFORMIN 500 MG Tab PO SCH (07:33)
[2018-01-14] MEDS: Aspirin 81 MG Tab.EC PO SCH (07:33)
[2018-01-14] MEDS: Clopidogrel 75 MG Tab PO SCH (07:33)
[2018-01-14] MEDS: buPROPion 100 MG Tab.SR PO SCH (07:33)
[2018-01-14] MEDS: Metoprolol Succinate 50 MG Tab.ER PO SCH (07:33)
[2018-01-14] MEDS ORDERED: Magnesium Sulfate/Water 4 GM in Premix Bag 1 BAG IV ONE (07:40)
[2018-01-14] MEDS: Lactobacillus Rhamnosus GG (Probiotic) Cap PO SCH (11:47)
--- NOTE | 2018-01-14 12:12 | PCM.DCSUM1 ---
Discharge Summary - Hospital Course HPI Initial Comments: Stan Epperson is a 62-year-old male who was well prior to 24 hours before to admission. Last Friday afternoon he started having fever, nonproductive cough and then finally shortness of breath. Throughout the night he was unable to sleep because of this coughing, dyspnea and wheezing. Patient came to the emergency room last Friday because of his respiratory distress. His admission vitals showed pulse of 83, temperature 95.9, blood pressure 137/75, respiratory rate of 28 and an O2 saturation of 75% on room air.Patient was treated with DuoNeb and intravenous methylprednisolone,. Chest x-ray showed a probable left lower lobe infiltrate. White count was 16,300 with left shift, creatinine was 1.5 and lactic acid level was elevated at 3.3, blood sugar was 191. BNP was mildly elevated at 753 as well Blood cultures 2 were drawn, he was given Rocephin and vancomycin. Patient's status improved with the aforementioned measures and 4 L of O2 so that at the time of transfer his pulse was 74 blood pressure 134/75 respiratory rate 17 O2 sat was 94% on 4 L O2 and [t a[[eared comfortabale patient is admitted for inpatient treatment of his pneumonia in view of his hypoxia, elevated white count ,diabetes mellitus and lactic acid level. - Discharge Data Discharge Date: 01/14/18 Discharge Disposition: Home, Self-Care 01 Condition: Good - Discharge Diagnosis/Problem(s) (1) Pneumonia SNOMED Code(s): 613797350 ICD Code: J18.9 - PNEUMONIA, UNSPECIFIED ORGANISM Status: Acute Priority : High Current Visit: Yes Problem Details: 1. Pneumonia: This is a community -acquired pneumonia superimposed on COPD and a host immunosuppressed by diabetes mellitus. This most recent hemoglobin A1c was 10 last month. It sounds however that his blood sugars have been under better control. In view of his hypoxia, white count with shift and elevated blood sugar, patient was admitted for treatment with IV antibiotics. Will continue Doxycycline 100mg BID and Cefdinir 300mg BID for another 3 days. Sputum Gram stain and culture showed Strep; patient is on the appropriate abx therapy. Will evaluate need for LABA next week at follow up appointment Qualifiers: Pneumonia type: due to unspecified organism Laterality: left Lung location: lower lobe of lung Qualified Code(s): J18.1 - Lobar pneumonia, unspecified organism (2) Diabetes mellitus SNOMED Code(s): 72788186 ICD Code: E11.9 - TYPE 2 DIABETES MELLITUS WITHOUT COMPLICATIONS Status: Acute Priority: Medium Current Visit: Yes Problem Details: Blood sugars under better control. Will check blood sugars next week during follow up appointment. Patient may need changes with meds for better glycemic control. 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 Avoid NSAIDS; continue currently abx therapy. (4) COPD (chronic obstructive pulmonary disease) SNOMED Code(s): 89314431 ICD Code: J44.9 - CHRONIC OBSTRUCTIVE PULMONARY DISEASE, UNSPECIFIED Status : Acute Priority: High Current Visit: No Problem Details: Wheezing resolved and improved from yesterday. Will wait on steroids as blood sugars are not well controlled at this point. Encourage C/DB and I.S. every 2 hours at home. Will consider LABA at time of discharge. Patient will need full PFT once he is well. (5) Depression SNOMED Code(s): 36913906 ICD Code: F32.9 - MAJOR DEPRESSIVE DISORDER, SINGLE EPISODE, UNSPECIFIED Status: Chronic Priority: Medium Current Visit: No Problem Details: Continue currently medications as patient seemed to be doing well with regimen Qualifiers: Depression Type: major depressive disorder Major depression recurrence: recurrent Active/Remission status: currently active Psychotic features: without psychotic features - Patient Summary/Data Operative Procedure(s) Performed: None Consults: None Labs Pending at D/C: None Recommended Follow-up Testing/Procedures: Repeat labs and cxr next week at follow up appointment next week Hospital Course: Overall, patient did well during his acute stay. He remained hemodynamically stable. Afebrile. Patient did have some diarrhea, but resolved at time of discharge. Tolerated diet ok. No issues with urination. Still some wheezing LLL. SOB resolved. Has a productive cough, but much improved. - Patient Instructions Diet: Diabetic Diet Activity: Rest and Relax Today Driving: Do Not Drive Showering/Bathing: May Shower Notify Provider of: Fever, Increased Pain, Nausea and/or Vomiting - Discharge Plan Prescriptions/Med Rec: Cefdinir 1 cap PO BID 6 Days #12 capsule Doxycycline [Vibramycin] 1 cap PO BID 3 Days #6 cap Home Medications: Home Meds Aspirin [Ecotrin] 81 mg PO DAILY 11/05/16 [History] Calcium Carbonate [Calcium] 600 mg PO BID 11/05/16 [History] Clopidogrel [Plavix] 75 mg PO DAILY 11/05/16 [History] Hydrochlorothiazide 25 mg PO DAILY 11/05/16 [History] Metoprolol Succinate [Toprol XL] 100 mg PO DAILY 11/05/16 [History] Lugoff-3 Fatty Acids [Maxepa] 1,000 mg PO WITHDINNER 11/05/16 [History] Lugoff-3 Fatty Acids [Maxepa] 2,000 mg PO DAILY 11/05/16 [History] Sertraline [Zoloft] 100 mg PO DAILY 11/05/16 [History] amLODIPine [Norvasc] 5 mg PO DAILY 11/05/16 [History] buPROPion [Wellbutrin SR] 150 mg PO BID 11/05/16 [History] oxyCODONE HCl/Acetaminophen [Percocet 10-325 mg Tablet] 1 each PO Q6H PRN [History] Albuterol [Proair HFA] 2 puff INH Q4HR PRN 01/11/18 [History] Insulin Glargine,Hum.Rec.Anlog [Basaglar Kwikpen U-100] 31 unit SQ DAILY MDD pt has been titrating up 01/11/18 [History] Magnesium 100 mg PO DAILY 01/11/18 [History] glipiZIDE [Glucotrol] 10 mg PO DAILY 01/11/18 [History] metFORMIN HCl [Glucophage] 1,000 mg PO BID 01/11/18 [History] Cefdinir 1 cap PO BID 6 Days #12 capsule 01/14/18 [Rx] Doxycycline [Vibramycin] 1 cap PO BID 3 Days #6 cap 01/14/18 [Rx] Patient Handouts: Community-Acquired Pneumonia, Adult Referrals: PCP,None [Ordering Only Provider] - - Discharge Summary/Plan Comment DC Time >30 min.: Yes Discharge Summary/Plan Comment: Patient will be discharged home today. Will continue Doxycycline for 3 more days and start Cefdinir for another 6 days to complete treatment. Continue all other medications the same. Patient will see me in the clinic for a follow up in one week. NOTE: Patient seen and examined by me as an [facility] provider - General Info Date of Service: 01/14/18 Admission Dx/Problem (Free Text: Admission Diagnosis/Problem Admission Diagnosis/Problem Pneumonia Functional Status: Reports: Pain Controlled, Tolerating Diet, Ambulating, Urinating - Review of Systems General: Denies: Fever, Weakness, Chills Pulmonary: Reports: Cough, Sputum, Wheezing. Denies: Shortness of Breath Cardiovascular: Denies: Chest Pain, Palpitations Gastrointestinal: Denies: Abdominal Pain, Nausea, Vomiting Skin: Reports: No Symptoms Neurological: Reports: No Symptoms. Denies: Dizziness, Headache - Patient Data Vitals - Most Recent: Last Vital Signs Temp 36.3 C 01/14/18 09:42 Pulse 67 01/14/18 09:42 Resp 20 01/14/18 09:42 BP 118/83 01/14/18 07:33 Pulse Ox 94 L 01/14/18 09:42 Weight - Most Recent: 89.471 kg I&O - Last 24 hours: Intake & Output 01/13/18 01/14/18 01/14/18 22:59 06:59 14:59 Intake Total 760 4812 240 Output Total 1700 875 Balance 760 3112 -635 Lab Results - Last 24 hrs: Laboratory Results - last 24 hr 01/13/18 01/13/18 01/14/18 Range/Units 17:17 20:48 06:29 WBC (4.0-10.0) x10^3/uL RBC (4.5-6.0) x10^6/uL Hgb (14.0-18.0) g/dL Hct (40.0-52.0) % MCV (78.0-93.0) fL MCH (26.0-32.0) pg MCHC (32.0-36.0) g/dL RDW Coeff of Vijay (10.0-15.0) % Plt Count (130-400) x10^3/uL Neut % (Auto) (50.0-80.0) % Lymph % (Auto) (25.0-50.0) % Bent % (Auto) (2.0-11.0) % Eos % (Auto) (0.0-4.0) % Baso % (Auto) (0.2-1.2) % Sodium (136-145) mmol/L Potassium (3.5-5.1) mmol/L Chloride (98-107) mmol/L Carbon Dioxide (21-32) mmol/L Anion Gap (10-20) mmol/L BUN (7-18) mg/dL Creatinine (0.70-1.30) mg/dL Est Cr Clr Drug Dosing mL/min Estimated GFR (MDRD) Glucose (74-106) mg/dL POC Glucose 147 H 130 H 124 H (74-106) mg/dL Lactic Acid (0.4-2.0) mmol/L Calcium (8.5-10.1) mg/dL Magnesium (1.8-2.4) mg/dL 18 18 01/14/18 Range/Units 06:31 06:31 06:31 WBC 6.0 (4.0-10.0) x10^3/uL RBC 3.72 L (4.5-6.0) x10^6/uL Hgb 11.7 L D (14.0-18.0) g/dL Hct 35.2 L (40.0-52.0) % MCV 94.6 H (78.0-93.0) fL MCH 31.5 (26.0-32.0) pg MCHC 33.2 (32.0-36.0) g/dL RDW Coeff of Vijay 12.5 (10.0-15.0) % Plt Count 110 L (130-400) x10^3/uL Neut % (Auto) 60.6 (50.0-80.0) % Lymph % (Auto) 26.6 (25.0-50.0) % Bent % (Auto) 9.0 (2.0-11.0) % Eos % (Auto) 3.5 (0.0-4.0) % Baso % (Auto) 0.3 (0.2-1.2) % Sodium 141 (136-145) mmol/L Potassium 4.2 (3.5-5.1) mmol/L Chloride 102 (98-107) mmol/L Carbon Dioxide 30 (21-32) mmol/L Anion Gap 13.2 (10-20) mmol/L BUN 22 H (7-18) mg/dL Creatinine 1.3 (0.70-1.30) mg/dL Est Cr Clr Drug Dosing 59.27 mL/min Estimated GFR (MDRD) 56 Glucose 131 H (74-106) mg/dL POC Glucose (74-106) mg/dL Lactic Acid 0.9 (0.4-2.0) mmol/L Calcium 8.9 (8.5-10.1) mg/dL Magnesium 1.3 L (1.8-2.4) mg/dL 01/14/18 Range/Units 10:51 WBC (4.0-10.0) x10^3/uL RBC (4.5-6.0) x10^6/uL Hgb (14.0-18.0) g/dL Hct (40.0-52.0) % MCV (78.0-93.0) fL MCH (26.0-32.0) pg MCHC (32.0-36.0) g/dL RDW Coeff of Vijay (10.0-15.0) % Plt Count (130-400) x10^3/uL Neut % (Auto) (50.0-80.0) % Lymph % (Auto) (25.0-50.0) % Bent % (Auto) (2.0-11.0) % Eos % (Auto) (0.0-4.0) % Baso % (Auto) (0.2-1.2) % Sodium (136-145) mmol/L Potassium (3.5-5.1) mmol/L Chloride (98-107) mmol/L Carbon Dioxide (21-32) mmol/L Anion Gap (10-20) mmol/L BUN (7-18) mg/dL Creatinine (0.70-1.30) mg/dL Est Cr Clr Drug Dosing mL/min Estimated GFR (MDRD) Glucose (74-106) mg/dL POC Glucose 96 (74-106) mg/dL Lactic Acid (0.4-2.0) mmol/L Calcium (8.5-10.1) mg/dL Magnesium (1.8-2.4) mg/dL FLORIN Results - Last 24 hrs: Microbiology 01/11/18 11:40 Aerobic Blood Culture - Preliminary Blood - Venous - Lab Draw NO GROWTH AFTER 3 DAYS Anaerobic Blood Culture - Preliminary NO GROWTH AFTER 3 DAYS 01/11/18 11:30 Aerobic Blood Culture - Preliminary Blood - Venous NO GROWTH AFTER 3 DAYS Anaerobic Blood Culture - Final 01/12/18 11:30 Gram Stain - Final Sputum - Induced Sputum Culture - Preliminary Alpha Hemolytic Strep Streptococcus Species Med Orders - Current: Current Medications Albuterol/Ipratropium (Duoneb 3.0-0.5 Mg/3 Ml) 3 ml NEB Q4HRRT [facility] Last Admin: 01/14/18 10:47 Dose: 3 ml Amlodipine Besylate (Norvasc) 5 mg PO DAILY [facility] Last Admin: 01/14/18 07:32 Dose: 5 mg Aspirin (Halfprin) 81 mg PO DAILY [facility] Last Admin: 01/14/18 07:33 Dose: 81 mg Bupropion HCl (Wellbutrin Sr) 150 mg PO BID [facility] Last Admin: 01/14/18 07:33 Dose: 150 mg Calcium Carbonate (Calcium Carbonate/Vitamin D 1250 Mg-200 Unit) 1 tab PO BID [facility] Last Admin: 01/14/18 07:32 Dose: 1 tab Ceftriaxone Sodium (Rocephin) 1 gm IVPUSH DAILY [facility] Last Admin: 01/14/18 07:32 Dose: 1 gm Clopidogrel Bisulfate (Plavix) 75 mg PO DAILY [facility] Last Admin: 01/14/18 07:33 Dose: 75 mg Doxycycline Hyclate (Vibramycin) 100 mg PO BID [facility] Last Admin: 01/14/18 07:32 Dose: 100 mg Glipizide (Glucotrol) 10 mg PO DAILY [facility] Last Admin: 01/14/18 07:32 Dose: 10 mg Hydrochlorothiazide (Hydrochlorothiazide) 25 mg PO DAILY [facility] Last Admin: 01/14/18 07:32 Dose: 25 mg Lactated Ringer's (Ringers, Lactated) 1,000 mls @ 125 mls/hr IV ASDIRECTED [facility] Last Admin: 01/14/18 03:40 Dose: 125 mls/hr Insulin Human Regular (Humulin R) 0 unit SUBCUT TIDMEALS [facility]; Protocol Last Admin: 01/14/18 11:41 Dose: Not Given Lactobacillus Rhamnosus (Culturelle) 1 cap PO DAILY@1200 [facility] Last Admin: 01/14/18 11:47 Dose: 1 cap Magnesium Oxide (Magnesium Oxide) 100 mg PO DAILY [facility] Last Admin: 01/14/18 07:32 Dose: 100 mg Metformin HCl (Glucophage) 1,000 mg PO BIDMEALS [facility] Last Admin: 01/14/18 07:33 Dose: 1,000 mg Metoprolol Succinate (Toprol Xl) 100 mg PO DAILY [facility] Last Admin: 01/14/18 07:33 Dose: 100 mg BasaglarOwn Med 0 each SUBCUT BEDTIME [facility] Last Admin: 01/13/18 21:04 Dose: 31 each Oxycodone HCl (Oxycodone) 5 mg PO Q6H PRN PRN Reason: PAIN Last Admin: 01/14/18 08:14 Dose: 5 mg Oxycodone/Acetaminophen (Percocet 325-5 Mg) 1 tab PO Q6H PRN PRN Reason: PAIN Last Admin: 01/14/18 08:13 Dose: 1 tab Sertraline HCl (Zoloft) 100 mg PO DAILY [facility] Last Admin: 01/14/18 07:32 Dose: 100 mg Discontinued Medications Albuterol (Proventil Neb Soln) 2.5 mg NEB Q4HRRT [facility] Last Admin: 01/12/18 07:14 Dose: 2.5 mg Albuterol/Ipratropium (Duoneb 3.0-0.5 Mg/3 Ml) 3 ml NEB ONETIME ONE Stop: 01/11/18 11:32 Last Admin: 01/11/18 11:32 Dose: 3 ml Ceftriaxone Sodium (Rocephin) 1 gm IVPUSH ONETIME ONE Stop: 01/11/18 11:47 Last Admin: 01/11/18 12:01 Dose: 1 gm Lactated Ringer's (Ringers, Lactated) 1,000 mls @ 150 mls/hr IV ASDIRECTED [facility] Last Admin: 01/11/18 12:00 Dose: 150 mls/hr Vancomycin HCl 1,250 mg/ (Sodium Chloride) 250 mls @ 200 mls/hr IV ONETIME ONE Stop: 01/11/18 13:29 Last Admin: 01/11/18 12:28 Dose: 200 mls/hr Magnesium Sulfate 2 gm/ Premix 50 mls @ 25 mls/hr IV ONETIME ONE Stop: 01/13/18 09:23 Last Admin: 01/13/18 07:48 Dose: 25 mls/hr Lactated Ringer's (Ringers, Lactated) 1,000 mls @ 999 mls/hr IV ONETIME ONE Stop: 01/13/18 11:36 Last Admin: 01/13/18 10:57 Dose: 999 mls/hr Magnesium Sulfate 4 gm/ Premix 100 mls @ 25 mls/hr IV ONETIME ONE Stop: 01/14/18 11:39 Last Admin: 01/14/18 08:00 Dose: 25 mls/hr Insulin Aspart (Novolog) 5 unit SUBCUT TIDMEALS [facility] Last Admin: 01/11/18 15:01 Dose: Not Given Insulin Aspart (Novolog) 3 unit SUBCUT ONETIME ONE Stop: 01/11/18 15:01 Last Admin: 01/11/18 15:09 Dose: 3 units Insulin Aspart (Novolog) 3 unit SUBCUT TIDMEALS ONE Stop: 01/11/18 15:01 Last Admin: 01/11/18 15:19 Dose: Not Given Insulin Aspart (Novolog) 3 unit SUBCUT TID@0715,1115,1715 [facility] Last Admin: 01/12/18 07:15 Dose: 3 units Ipratropium [place] (Atrovent) 0.5 mg NEB Q6HRRT [facility] Last Admin: 01/12/18 07:14 Dose: 0.5 mg Methylprednisolone Sodium Succinate (Solu-Medrol) 125 mg IVPUSH ONETIME ONE Stop: 01/11/18 11:32 Last Admin: 01/11/18 11:37 Dose: 125 mg Non-Formulary Medication (Nf Drug) 1 each IM ONETIME ONE Stop: 01/13/18 17:55 Last Admin: 01/14/18 08:02 Dose: Not Given - Exam General: Denies: Alert, Oriented, Cooperative, No Acute Distress Neck: Reports: Supple Lungs: Reports: Normal Respiratory Effort, Decreased Breath Sounds, Wheezing Cardiovascular: Reports: Regular Rate, Regular Rhythm GI/Abdominal Exam: Normal Bowel Sounds, Soft, Non-Tender Skin: Reports: Warm, Dry, Intact Neurological: Reports: No New Focal Deficit *Q Meaningful Use (DIS) - VTE *Q VTE Criteria *Q: Patient is not at risk for fall at time of this discharge
== END 2018-01-14 12:45 | disposition home or self-care (01) | DRG 193 ==
LOC: VM.ED 11:27 → VM.MS 12:34 → UNDOADMIN 13:05
PROVIDERS: ADMIT Internal Medicine; ATTEND Family Medicine
DX: A41.9 Sepsis, unspecified organism (principal); J18.1 Lobar pneumonia, unspecified organism; J96.90 Respiratory failure, unspecified, unspecified whether with hypoxia or hypercapnia; J96.91 Respiratory failure, unspecified with hypoxia; J44.0 Chronic obstructive pulmonary disease with (acute) lower respiratory infection; E11.9 Type 2 diabetes mellitus without complications; M19.90 Unspecified osteoarthritis, unspecified site; F17.210 Nicotine dependence, cigarettes, uncomplicated; F32.9 Major depressive disorder, single episode, unspecified; I25.10 Atherosclerotic heart disease of native coronary artery without angina pectoris; J44.9 Chronic obstructive pulmonary disease, unspecified; M15.9 Polyosteoarthritis, unspecified; E11.22 Type 2 diabetes mellitus with diabetic chronic kidney disease; I12.9 Hypertensive chronic kidney disease with stage 1 through stage 4 chronic kidney disease, or unspecified chronic kidney disease; Z95.818 Presence of other cardiac implants and grafts; R06.2 Wheezing; R09.3 Abnormal sputum; R61 Generalized hyperhidrosis; R53.1 Weakness; R05 Cough; R06.02 Shortness of breath; R50.9 Fever, unspecified; R06.03 Acute respiratory distress; N18.9 Chronic kidney disease, unspecified; E78.5 Hyperlipidemia, unspecified; R19.7 Diarrhea, unspecified; B95.3 Streptococcus pneumoniae as the cause of diseases classified elsewhere; Z88.2 Allergy status to sulfonamides; E66.9 Obesity, unspecified; Z68.28 Body mass index [BMI] 28.0-28.9, adult; Z95.5 Presence of coronary angioplasty implant and graft; Z96.649 Presence of unspecified artificial hip joint; Z88.8 Allergy status to other drugs, medicaments and biological substances; Z91.018 Allergy to other foods; Z79.02 Long term (current) use of antithrombotics/antiplatelets; Z79.82 Long term (current) use of aspirin; Z79.4 Long term (current) use of insulin; Z79.899 Other long term (current) drug therapy
CPT/HCPCS: 36415; 71045; 71046; 80048; 80053; 82962; 83605; 83735; 83880; 84484; 85025; 87040; 87070; 87077; 87205; 93005; 94640; 94760; 96365; 96375; 99285; A9270-GY; J0696; J1815-GY; J2930; J3370; J3475; J7050; J7120; J7620-GY

== ENCOUNTER 2018-01-15 16:59 | Emergency (ER) | payer MEDICARE ==
[2018-01-15] MEDS: Albuterol/Ipratropium 3.0-0.5 MG/3 ML Neb Soln NEB ONE (17:00)
[2018-01-15] MEDS ORDERED: Sodium Chloride 0.9% 10 ML Syringe FLUSH PRN (17:05)
[2018-01-15] MEDS: methylPREDNISolone Sodium Succinate 125 MG/2 ML SDV IVPUSH ONE (17:05)
[2018-01-15 17:57] LABS: CHLORIDE,CL 101 mmol/L (98-107); SODIUM,NA 138 mmol/L (136-145)
--- NOTE | 2018-01-15 18:28 | EDM.PDOC ---
ED HPI GENERAL MEDICAL PROBLEM - General Chief Complaint: Respiratory Problem Stated Complaint: sob Time Seen by Provider: 01/15/18 17:00 Source of Information: Reports: Patient, Family History Limitations: Reports: No Limitations, Respiratory Distress - History of Present Illness INITIAL COMMENTS - FREE TEXT/NARRATIVE: Patient presents this evening to emergency room with complaints of shortness of breath. He states that this started around noon at home. He was resting in his recliner watching gunsmoke. Patient was recently admitted for pneumonia. Admission date was January 11, 2018 discharge was January 14, 2018. While here he was given IV Rocephin with IV Zithromax. Was transitioned to oral Cefdinir and doxycycline. 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 Said at some point he was smoking up to 3 packs per day. Additional medical history includes uncontrolled diabetes type 2, COPD, depression, dyslipidemia, chronic kidney disease, as well as coronary artery disease which has included several stents. He does deny chest pain, headache, loss of consciousness, abdominal pain, blood in the urine or blood in his stool , no recent fever or chills. Onset: Today, Gradual Duration: Getting Worse Location: Reports: Chest Severity: Moderate Associated Symptoms: Reports: Shortness of Breath - Related Data Allergies Allergy/AdvReac Type Severity Reaction Status Date / Time duloxetine [From Cymbalta] Allergy Other Verified 01/15/18 17:10 Sulfa (Sulfonamide Allergy Hives Verified 01/15/18 17:10 Antibiotics) ezetimibe [From Zetia] AdvReac Nausea Verified 01/15/18 17:10 horseradish AdvReac Diarrhea Verified 01/15/18 17:10 losartan AdvReac Dizziness Verified 01/15/18 17:10 rosuvastatin [From Crestor] AdvReac Muscle Verified 01/15/18 17:10 Aches Home Meds: Home Meds Aspirin [Ecotrin] 81 mg PO DAILY 11/05/16 [History] Calcium Carbonate [Calcium] 600 mg PO BID 11/05/16 [History] Clopidogrel [Plavix] 75 mg PO DAILY 11/05/16 [History] Hydrochlorothiazide 25 mg PO DAILY 11/05/16 [History] Metoprolol Succinate [Toprol XL] 100 mg PO DAILY 11/05/16 [History] [place]-3 Fatty Acids [Maxepa] 1,000 mg PO WITHDINNER 11/05/16 [History] [place]-3 Fatty Acids [Maxepa] 2,000 mg PO DAILY 11/05/16 [History] Sertraline [Zoloft] 100 mg PO DAILY 11/05/16 [History] amLODIPine [Norvasc] 5 mg PO DAILY 11/05/16 [History] buPROPion [Wellbutrin SR] 150 mg PO BID 11/05/16 [History] oxyCODONE HCl/Acetaminophen [Percocet 10-325 mg Tablet] 1 each PO Q6H PRN [History] Albuterol [Proair HFA] 2 puff INH Q4HR PRN 01/11/18 [History] Insulin Glargine,Hum.Rec.Anlog [Basaglar Kwikpen U-100] 31 unit SQ DAILY MDD pt has been titrating up 01/11/18 [History] Magnesium 100 mg PO DAILY 01/11/18 [History] glipiZIDE [Glucotrol] 10 mg PO DAILY 01/11/18 [History] metFORMIN HCl [Glucophage] 1,000 mg PO BID 01/11/18 [History] Cefdinir 1 cap PO BID 6 Days #12 capsule 01/14/18 [Rx] Doxycycline [Vibramycin] 1 cap PO BID 3 Days #6 cap 01/14/18 [Rx] Past Medical History Cardiovascular History: Reports: CAD, High Cholesterol, Hypertension, Stents Respiratory History: Reports: COPD Gastrointestinal History: Reports: Other (See Below) Other Gastrointestinal History: obesity Musculoskeletal History: Reports: Arthritis, Osteoarthritis, Other (See Below) Neurological History: Reports: Concussion, Other (See Below) Psychiatric History: Reports: Depression Endocrine/Metabolic History: Reports: Diabetes, Type II Immunologic History: Reports: Other (See Below) - Past Surgical History Cardiovascular Surgical History: Reports: Coronary Artery Stent, Other (See Below) Musculoskeletal Surgical History: Reports: Arthroscopic Knee, Hip Replacement - History Comment History Comment: right cartoid endarterectomy. right hip replacment. 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 , 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 ; 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 [facility], 1 in [facility]) ED ROS GENERAL - Review of Systems Review Of Systems: See Below Constitutional: Reports: No Symptoms HEENT: Reports: No Symptoms Respiratory: Reports: Shortness of Breath, Wheezing, Cough, Sputum Cardiovascular: Reports: No Symptoms Endocrine: Reports: No Symptoms GI/Abdominal: Reports: No Symptoms : Reports: No Symptoms Musculoskeletal: Reports: No Symptoms Skin: Reports: No Symptoms Neurological: Reports: No Symptoms Psychiatric: Reports: No Symptoms Hematologic/Lymphatic: Reports: No Symptoms Immunologic: Reports: No Symptoms ED EXAM, GENERAL - Physical Exam Exam: See Below Exam Limited By: Respiratory Distress General Appearance: Alert, WD/WN, Moderate Distress Eye Exam: Bilateral Eye: EOMI, Normal Inspection, PERRL Ears: Normal TMs Nose: Normal Inspection, Normal Mucosa, No Blood Throat/Mouth: Normal Inspection, Normal Lips, Normal Teeth, Normal Gums, Normal Oropharynx, Normal Voice, No Airway Compromise Head: Atraumatic, Normocephalic Neck: Normal Inspection, Supple, Non-Tender, Full Range of Motion Respiratory/Chest: Respiratory Distress, Rales, Wheezing, Prolonged Expiration Cardiovascular: Normal Peripheral Pulses, Regular Rate, Rhythm, No Edema, No Gallop, No JVD, No Murmur, No Rub GI/Abdominal: Normal Bowel Sounds, Soft, Non-Tender, No Organomegaly, No Distention, No Abnormal Bruit, No Mass Extremities: Normal Inspection, Normal Range of Motion, Non-Tender, Normal Capillary Refill, No Pedal Edema Neurological: Alert, Oriented, CN II-XII Intact, Normal Cognition, Normal Gait, Normal Reflexes, No Motor/Sensory Deficits Psychiatric: Normal Affect, Anxious Skin Exam: Warm, Dry, Intact, Normal Color, No Rash Lymphatic: No Adenopathy Course - Vital Signs Last Recorded V/S: Last Vital Signs Temp 36.5 C 01/15/18 16:59 Pulse 75 01/15/18 18:31 Resp 18 01/15/18 18:31 BP 121/69 01/15/18 18:31 Pulse Ox 90 L 01/15/18 18:31 - Orders/Labs/Meds Orders: Active Orders 24 hr Category Date Time Status EKG 12 Lead [EKG Documentation Completion] [] URGENT Care 01/15/18 17:05 Active Oxygen Therapy Adult [Oxygen Therapy, ED] [] Care 01/15/18 17:15 Active ASDIRECTED RT Aerosol Therapy [] ASDIRECTED Care 01/15/18 17:16 Active Chest 1V Frontal [CR] Stat Exams 01/15/18 17:05 Taken Chest wo Cont [CT] Stat Exams 01/15/18 17:19 Taken CULTURE BLOOD [BC] Stat Lab 01/15/18 18:03 Received CULTURE BLOOD [BC] Stat Lab 01/15/18 18:09 Received Blood Culture x2 Reflex Set [OM.PC] Stat Oth 01/15/18 17:36 Ordered Saline Lock Insert [OM.PC] Routine Oth 01/15/18 17:05 Ordered Labs: Laboratory Tests 01/15/18 01/15/18 01/15/18 Range/Units 17:20 17:20 17:20 WBC 8.7 (4.0-10.0) x10^3/uL RBC 4.38 L (4.5-6.0) x10^6/uL Hgb 13.8 L D (14.0-18.0) g/dL Hct 40.9 (40.0-52.0) % MCV 93.4 H (78.0-93.0) fL MCH 31.5 (26.0-32.0) pg MCHC 33.7 (32.0-36.0) g/dL RDW Coeff of Vijay 12.6 (10.0-15.0) % Plt Count 153 (130-400) x10^3/uL Neut % (Auto) 67.8 (50.0-80.0) % Lymph % (Auto) 19.2 L (25.0-50.0) % Knott % (Auto) 9.5 (2.0-11.0) % Eos % (Auto) 3.0 (0.0-4.0) % Baso % (Auto) 0.5 (0.2-1.2) % POC ABG pH (7.35-7.45) POC ABG pCO2 (35-45) mmHG POC ABG pO2 (80-105) mmHG POC ABG HCO3 (22-26) mmol/L POC ABG Total CO2 (23-27) mmol/L POC ABG O2 Sat (95-98) % POC ABG Base Excess (-2-3) mmol/L POC FiO2 Sodium 138 (136-145) mmol/L Potassium 4.1 (3.5-5.1) mmol/L Chloride 101 (98-107) mmol/L Carbon Dioxide 28 (21-32) mmol/L Anion Gap 13.1 (10-20) mmol/L BUN 16 (7-18) mg/dL Creatinine 1.4 H (0.70-1.30) mg/dL Est Cr Clr Drug Dosing TNP Estimated GFR (MDRD) 51 Glucose 141 H (74-106) mg/dL Lactic Acid 1.4 (0.4-2.0) mmol/L Calcium 9.1 (8.5-10.1) mg/dL Corrected Calcium 9.34 (8.5-10.1) mg/dL Total Bilirubin 0.7 (0.2-1.0) mg/dL AST 33 (15-37) U/L ALT 38 (16-63) U/L Alkaline Phosphatase 80 (46-116) U/L C-Reactive Protein 4.6 H (<=0.9) mg/dL NT-Pro-B Natriuret Pep (<=125) pg/mL Total Protein 8.0 (6.4-8.2) g/dL Albumin 3.7 (3.4-5.0) g/dL Globulin 4.3 Albumin/Globulin Ratio 0.86 POC Result Comm 01/15/18 01/15/18 Range/Units 17:20 17:43 WBC (4.0-10.0) x10^3/uL RBC (4.5-6.0) x10^6/uL Hgb (14.0-18.0) g/dL Hct (40.0-52.0) % MCV (78.0-93.0) fL MCH (26.0-32.0) pg MCHC (32.0-36.0) g/dL RDW Coeff of Vijay (10.0-15.0) % Plt Count (130-400) x10^3/uL Neut % (Auto) (50.0-80.0) % Lymph % (Auto) (25.0-50.0) % Knott % (Auto) (2.0-11.0) % Eos % (Auto) (0.0-4.0) % Baso % (Auto) (0.2-1.2) % POC ABG pH 7.427 (7.35-7.45) POC ABG pCO2 43 (35-45) mmHG POC ABG pO2 53 L* (80-105) mmHG POC ABG HCO3 28 H (22-26) mmol/L POC ABG Total CO2 30 H (23-27) mmol/L POC ABG O2 Sat 88 L (95-98) % POC ABG Base Excess 4 H (-2-3) mmol/L POC FiO2 0.36 Sodium (136-145) mmol/L Potassium (3.5-5.1) mmol/L Chloride (98-107) mmol/L Carbon Dioxide (21-32) mmol/L Anion Gap (10-20) mmol/L BUN (7-18) mg/dL Creatinine (0.70-1.30) mg/dL Est Cr Clr Drug Dosing Estimated GFR (MDRD) Glucose (74-106) mg/dL Lactic Acid (0.4-2.0) mmol/L Calcium (8.5-10.1) mg/dL Corrected Calcium (8.5-10.1) mg/dL Total Bilirubin (0.2-1.0) mg/dL AST (15-37) U/L ALT (16-63) U/L Alkaline Phosphatase (46-116) U/L C-Reactive Protein (<=0.9) mg/dL NT-Pro-B Natriuret Pep 672 H (<=125) pg/mL Total Protein (6.4-8.2) g/dL Albumin (3.4-5.0) g/dL Globulin Albumin/Globulin Ratio POC Result Comm Called critical res Meds: Medications Discontinued Medications Generic Name Dose Route Start Last Admin Trade Name Freq PRN Reason Stop Dose Admin Albuterol/Ipratropium 3 ml 01/15/18 17:15 01/15/18 17:00 Duoneb 3.0-0.5 Mg/3 Ml NEB 01/15/18 17:16 3 ml ONETIME ONE Administration Methylprednisolone Sodium Succinate 125 mg 01/15/18 17:05 01/15/18 17:05 Solu-Medrol IVPUSH 01/15/18 17:06 125 mg ONETIME ONE Administration Sodium Chloride 10 ml 01/15/18 17:05 Saline Flush FLUSH ASDIRECTED PRN Keep Vein Open - Re-Assessments/Exams Free Text/Narrative Re-Assessment/Exam: 01/15/18 18:39 x-ray is unchanged from his last while in the hospital. Does show some COPD, no diagnostic evidence of pneumonia. CT of chest also performed. Images forwarded in PACS to [facility] Departure - Departure Time of Disposition: 18:45 Disposition: DC/Tfer to Acute Hospital 02 Condition: Fair Clinical Impression: Hypoxemia - Discharge Information Referrals: Adelaide Mcdaniel DO [Primary Care Provider] - Forms: ED Department Discharge, Interfacility Transfer EMTALA ED Communication - Discussed Case With (1) Discussed Case With (1): Other (I did call Juan Fernandez as he did discharge the patient yesterday and the patient has Dr. Mcdaniel listed as his primary. Juan did talk with Dr. Mcdaniel and she felt he should go to [place] for additional pulmonology consultation.) - Discussed Case With (2) Discussed Case With (2): Admitting Provider (Dr. Soto was called and given report. She will admit and follow the patient.) - My Orders Last 24 Hours: My Active Orders 01/15/18 17:05 EKG 12 Lead [EKG Documentation Completion] [RC] URGENT Chest 1V Frontal [CR] Stat Saline Lock Insert [OM.PC] Routine 01/15/18 17:15 Oxygen Therapy Adult [Oxygen Therapy, ED] [RC] ASDIRECTED 01/15/18 17:16 RT Aerosol Therapy [RC] ASDIRECTED 01/15/18 17:19 Chest wo Cont [CT] Stat 01/15/18 17:36 Blood Culture x2 Reflex Set [OM.PC] Stat 01/15/18 18:03 CULTURE BLOOD [BC] Stat 01/15/18 18:09 CULTURE BLOOD [BC] Stat - Assessment/Plan Last 24 Hours: My Active Orders 01/15/18 17:05 EKG 12 Lead [EKG Documentation Completion] [RC] URGENT Chest 1V Frontal [CR] Stat Saline Lock Insert [OM.PC] Routine 01/15/18 17:15 Oxygen Therapy Adult [Oxygen Therapy, ED] [RC] ASDIRECTED 01/15/18 17:16 RT Aerosol Therapy [RC] ASDIRECTED 01/15/18 17:19 Chest wo Cont [CT] Stat 01/15/18 17:36 Blood Culture x2 Reflex Set [OM.PC] Stat 01/15/18 18:03 CULTURE BLOOD [BC] Stat 01/15/18 18:09 CULTURE BLOOD [BC] Stat
[2018-01-15 18:32] VITALS: BP 121/69
== END 2018-01-15 18:50 | disposition short-term general hospital (02) ==
LOC: VM.ED 16:59
DX: R09.02 Hypoxemia (principal); I10 Essential (primary) hypertension; E11.9 Type 2 diabetes mellitus without complications; E66.9 Obesity, unspecified; F17.210 Nicotine dependence, cigarettes, uncomplicated; Z88.8 Allergy status to other drugs, medicaments and biological substances; Z88.2 Allergy status to sulfonamides; Z79.82 Long term (current) use of aspirin; Z79.899 Other long term (current) drug therapy
CPT/HCPCS: 36415; 36600; 71045; 71250; 80053; 82803; 83605; 83880; 85025; 86140; 87040; 93005; 94640; 96374; 99285; J2930

== ENCOUNTER 2020-04-06 09:44 | Emergency (ER) | payer MEDICARE, OTHER ==
[2020-04-06 10:10] VITALS: BP 128/62; PULSE 62
--- NOTE | 2020-04-06 10:17 | EDM.PDOC ---
ED HPI GENERAL MEDICAL PROBLEM - General Chief Complaint: Upper Extremity Injury/Pain Stated Complaint: LARGE BUMP ON LEFT ELBOW Time Seen by Provider: 04/06/20 10:05 Source of Information: Reports: Patient History Limitations: Reports: No Limitations - History of Present Illness INITIAL COMMENTS - FREE TEXT/NARRATIVE: Patient comes into the emergency department with complaint of left elbow swelling. Patient states he noticed it on Friday and is slowly progressed throughout the week. He has not gone to his primary care provider for evaluation of this. He states that it does not hurt or cause any discomfort while sitting there. He states it is a little tender to touch. He denies any redness, warmth, fever, nausea, CMS concerns, or range of motion concerns. He does state that he has noticed over the course of the last 4 to 5 days that he bruising has formed down his entire forearm but does appear to be healing. He does not remember falling or having any major. He is on anti-coagulant and states that he does bruise fairly easily so he just wanted to have this all checked out. Denies any other concerns or complaints and states he is been relatively healthy. 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 Left Elbow Pain Score (Numeric/FACES): 3 Generalized Pain Score (Numeric/FACES): 8 - Related Data Allergies Allergy/AdvReac Type Severity Reaction Status Date / Time duloxetine [From Cymbalta] Allergy Other Verified 04/06/20 09:56 Sulfa (Sulfonamide Allergy Hives Verified 04/06/20 09:56 Antibiotics) ezetimibe [From Zetia] AdvReac Nausea Verified 04/06/20 09:56 horseradish AdvReac Diarrhea Verified 04/06/20 09:56 losartan AdvReac Dizziness Verified 04/06/20 09:56 rosuvastatin [From Crestor] AdvReac Muscle Verified 04/06/20 09:56 Aches Home Meds: Home Meds Aspirin [Ecotrin EC] 81 mg PO DAILY 11/05/16 [History] Calcium Carbonate [Calcium] 600 mg PO BID 11/05/16 [History] Clopidogrel [Plavix] 75 mg PO DAILY 11/05/16 [History] Hydrochlorothiazide 25 mg PO DAILY 11/05/16 [History] Metoprolol Succinate [Toprol XL] 100 mg PO DAILY 11/05/16 [History] [place]-3 Fatty Acids [Maxepa] 1,000 mg PO WITHDINNER 11/05/16 [History] [place]-3 Fatty Acids [Maxepa] 2,000 mg PO DAILY 11/05/16 [History] Sertraline [Zoloft] 100 mg PO DAILY 11/05/16 [History] amLODIPine [Norvasc] 5 mg PO DAILY 11/05/16 [History] buPROPion [Wellbutrin SR] 150 mg PO BID 11/05/16 [History] Albuterol [Proair HFA] 2 puff INH Q4HR PRN 01/11/18 [History] Insulin Glargine,Hum.Rec.Anlog [Basaglar Kwikpen U-100] 30 unit SQ DAILY MDD pt has been titrating up 01/11/18 [History] Magnesium 100 mg PO DAILY 01/11/18 [History] glipiZIDE [Glucotrol] 10 mg PO DAILY 01/11/18 [History] metFORMIN HCl [Glucophage] 1,000 mg PO BID 01/11/18 [History] HYDROmorphone [Dilaudid] 4 mg PO Q6H PRN 04/06/20 [History] Past Medical History Cardiovascular History: Reports: CAD, High Cholesterol, Hypertension, Stents Respiratory History: Reports: COPD Gastrointestinal History: Reports: Other (See Below) Other Gastrointestinal History: obesity Musculoskeletal History: Reports: Arthritis, Osteoarthritis, Other (See Below) Neurological History: Reports: Concussion, Other (See Below) Psychiatric History: Reports: Depression Endocrine/Metabolic History: Reports: Diabetes, Type II Immunologic History: Reports: Other (See Below) - Past Surgical History Cardiovascular Surgical History: Reports: Coronary Artery Stent, Other (See Below) Musculoskeletal Surgical History: Reports: Arthroscopic Knee, Hip Replacement - History Comment History Comment: right cartoid endarterectomy. right hip replacment. 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) Review of Systems - Review of Systems Review Of Systems: Comprehensive ROS is negative, except as noted in HPI. Constitutional: Reports: No Symptoms Eyes: Reports: No Symptoms Ears: Reports: No Symptoms Nose: Reports: No Symptoms Mouth/Throat: Reports: No Symptoms Respiratory: Reports: No Symptoms Cardiovascular: Reports: No Symptoms GI/Abdominal: Reports: No Symptoms Genitourinary: Reports: No Symptoms Musculoskeletal: Reports: No Symptoms Neurological: Reports: No Symptoms Psychiatric: Reports: No Symptoms ED EXAM, GENERAL - Physical Exam Exam: See Below Exam Limited By: No Limitations General Appearance: Alert, WD/WN, No Apparent Distress Head: Atraumatic, Normocephalic Neck: Normal Inspection, Supple, Non-Tender, Full Range of Motion Respiratory/Chest: No Respiratory Distress, Lungs Clear, Normal Breath Sounds, No Accessory Muscle Use, Chest Non-Tender Cardiovascular: Normal Peripheral Pulses, Regular Rate, Rhythm, No Edema GI/Abdominal: Normal Bowel Sounds, Soft, Non-Tender Extremities: Other (left elbow- bursitis- golf ball size. Ecchymosis noted entire forearm) Neurological: Alert, Oriented, Normal Gait Psychiatric: Normal Affect, Normal Mood Skin Exam: Warm, Dry, Intact Course - Vital Signs Last Recorded V/S: Last Vital Signs Temp 36.7 C 04/06/20 09:53 Pulse 62 04/06/20 09:53 Resp 16 04/06/20 09:53 BP 128/62 04/06/20 09:53 Pulse Ox 97 04/06/20 09:53 Departure - Departure Time of Disposition: 10:20 Disposition: Home, Self-Care 01 Condition: Good Clinical Impression: longterm current use of anticoagulant therapy Bursitis Qualifiers: Bursitis location: elbow Elbow bursitis location: unspecified Laterality: left Qualified Code(s): M70.32 - Other bursitis of elbow, left elbow - Discharge Information *PRESCRIPTION DRUG MONITORING PROGRAM REVIEWED*: Not Applicable *COPY OF PRESCRIPTION DRUG MONITORING REPORT IN PATIENT CLARE: Not Applicable Instructions: Bursitis, Elbow Bursitis With Rehab-SportsMed Additional Instructions: 1. rest 2. follow up at [facility] on April 11 1:45pm for further evaluation 3. Continue all at home medications 4. Activity and diet as tolerated 5. Can take over the counter Tylenol or ibuprofen for any pain or discomfort 6. Follow up with PCP if symptoms continue, return, or progress 7. Use Ice over the forearm and elbow 3 times a day for 20 minutes each time 8. Call with any questions or concerns Sepsis Event Note (ED) - Evaluation Sepsis Screening Result: No Definite Risk - Focused Exam Vital Signs: Vital Signs Temp Pulse Resp BP Pulse Ox 04/06/20 09:53 36.7 C 62 16 128/62 97 - Assessment/Plan Assessment:: 1. Bursitis left elbow Plan: 1. Contact made with [facility] and patient will be seen by ortho on Friday at 1:45 for further evaluation and treatment 2. Patient and nursing staff was updated regarding the plan of care 3. Education provided the patient regarding activity, diet, rest, [id number] medication modalities, and follow-up care was provided 4. Patient and family are agreeable to the above plan of care 5. All questions and concerns were addressed with the patient and family prior to discharge
== END 2020-04-06 10:35 | disposition home or self-care (01) ==
LOC: VM.ED 09:44
DX: M70.32 Other bursitis of elbow, left elbow (principal); I10 Essential (primary) hypertension; E78.00 Pure hypercholesterolemia, unspecified; I25.10 Atherosclerotic heart disease of native coronary artery without angina pectoris; Z95.5 Presence of coronary angioplasty implant and graft; E11.9 Type 2 diabetes mellitus without complications; F32.9 Major depressive disorder, single episode, unspecified; E66.9 Obesity, unspecified; Z79.01 Long term (current) use of anticoagulants; Z88.2 Allergy status to sulfonamides; Z88.8 Allergy status to other drugs, medicaments and biological substances; Z79.82 Long term (current) use of aspirin; Z79.02 Long term (current) use of antithrombotics/antiplatelets; Z68.24 Body mass index [BMI] 24.0-24.9, adult
CPT/HCPCS: 99283; 99283-GF

== ENCOUNTER 2020-04-17 09:57 | Day surgery (SDC) | payer MEDICARE, OTHER ==
[~2020-04-17 09:57] MED LIST: Lactated Ringers 1,000 ML IV SCH; Sodium Chloride 0.9% 10 ML Syringe FLUSH PRN
[2020-04-17] MEDS ORDERED: Propofol 200 MG/20 ML SDV ONE (10:20)
[2020-04-17] MEDS ORDERED: fentaNYL 100 MCG/2 ML SDV ONE (10:20)
[2020-04-17] MEDS ORDERED: Midazolam 1 MG/ML 2 ML SDV ONE ×2 (10:21→11:49)
[2020-04-17] MEDS ORDERED: ceFAZolin 1 GM Vial ONE ×2 (10:58→10:59)
[2020-04-17] MEDS ORDERED: Ondansetron 4 MG/2 ML SDV ONE (11:04)
[2020-04-17] MEDS ORDERED: Lidocaine 0.5% 50 ML SDV ONE (11:28)
[2020-04-17] MEDS ORDERED: Lidocaine 1% 30 ML SDV ONE ×2 (11:51→11:52)
[2020-04-17] MEDS ORDERED: Lidocaine 1% 30 ML SDV INJECT ONE ×2 (11:57)
[2020-04-17 13:12] VITALS: BP 123/53; PULSE 60
--- NOTE | 2020-04-18 08:55 | OR ---
PREOPERATIVE DIAGNOSIS: Ischemic left second toe. POSTOPERATIVE DIAGNOSIS: Ischemic left second toe. PROCEDURE PERFORMED: Amputation of the left second toe. This was done just distal to the MP joint. COMPLICATIONS: None. SPECIMENS: Toe. ESTIMATED BLOOD LOSS: About 5 mL. PROCEDURE IN DETAIL: This was done in the operating room. Sedation was given per Anesthesia. The left foot was prepped in sterile manner. 1% lidocaine was used to anesthetize the skin and surrounding subcutaneous tissue at the base of the toe. Two flaps were fashioned with a skin marker; a small flap anteriorly and a longer flap posteriorly. Cautery was used to go through the subcutaneous tissue down to the proximal phalanx taking the both flaps off the proximal phalanx until the joint was reached. I then transected at that level with the rongeur, closed it with 4-0 nylon interrupted mattress sutures. Dressing was applied. The patient was brought to PACU postoperatively and will be sent home later today. BKD: 04/17/2020 12:15:34 MODL: 04/17/2020 16:35:46 /[id number]
== END 2020-04-17 14:15 | disposition home or self-care (01) ==
LOC: VM.SDS 09:57
PROVIDERS: ATTEND Surgery
DX: M86.172 Other acute osteomyelitis, left ankle and foot (principal); E11.621 Type 2 diabetes mellitus with foot ulcer; L97.529 Non-pressure chronic ulcer of other part of left foot with unspecified severity; I25.10 Atherosclerotic heart disease of native coronary artery without angina pectoris; F33.0 Major depressive disorder, recurrent, mild; E66.9 Obesity, unspecified; J44.9 Chronic obstructive pulmonary disease, unspecified; E78.5 Hyperlipidemia, unspecified; F17.210 Nicotine dependence, cigarettes, uncomplicated; M17.0 Bilateral primary osteoarthritis of knee; I12.9 Hypertensive chronic kidney disease with stage 1 through stage 4 chronic kidney disease, or unspecified chronic kidney disease; E11.22 Type 2 diabetes mellitus with diabetic chronic kidney disease; N18.3 Chronic kidney disease, stage 3 (moderate); Z11.59 Encounter for screening for other viral diseases; Z79.891 Long term (current) use of opiate analgesic; Z88.2 Allergy status to sulfonamides; Z88.8 Allergy status to other drugs, medicaments and biological substances; Z88.1 Allergy status to other antibiotic agents; Z79.82 Long term (current) use of aspirin; Z79.899 Other long term (current) drug therapy; Z79.4 Long term (current) use of insulin; Z96.641 Presence of right artificial hip joint; Z68.25 Body mass index [BMI] 25.0-25.9, adult
CPT/HCPCS: 01480; 28825; 82962; 88305; 88311; J0690; J2001; J2250; J2405; J2704; J3010; J7120; U0002

== ENCOUNTER 2020-10-31 10:23 | Emergency (ER) | payer MEDICARE, OTHER ==
[2020-10-31] MEDS ORDERED: 50% Dextrose in Water 50 ML Syringe IV PRN (10:30)
[2020-10-31] MEDS ORDERED: 50% Dextrose in Water 50 ML Syringe ONE (10:36)
--- NOTE | 2020-10-31 10:51 | EDM.PDOC ---
ED HPI GENERAL MEDICAL PROBLEM - General Stated Complaint: STROKE CODE Time Seen by Provider: 10/31/20 10:23 Source of Information: Reports: Patient History Limitations: Reports: No Limitations - History of Present Illness INITIAL COMMENTS - FREE TEXT/NARRATIVE: Pt. presents to ER with complaints of L sided weakness. Pt. states that he noticed he was having troubles moving his L leg when he woke up this AM. Pt. states that she brought him coffee at approx. 9 AM and he seemed to be fine then, but pt. did not report this deficit. EMS was summoned. EMS reports he had drift in his L leg initially. Blood glucose prehospitally was 45mg/dl. He was not given any D50. Pt. denies any headache. No recent head trauma. Denies any previous cerebrovascular disease. He states that he does have a history of cardiac stents and atherosclerosis. Pt. denies any chest pain, shortness of breath, lightheadedness, or palpitations. Pt. does have a history of what sounds like expressive aphasia, according to his family. This is a chronic problem for the patient. They state that the patient has seen neurology for this in the past. Onset: Today Onset Date: 10/31/20 Location: Reports: Generalized Associated Symptoms: Reports: Other (resolved L sided weakness) - Related Data Allergies Allergy/AdvReac Type Severity Reaction Status Date / Time duloxetine [From Cymbalta] Allergy Other Verified 04/06/20 09:56 Fftqxlk-Cos-Osr Reductase Allergy Muscle Verified 04/13/20 11:24 Inhibitor Aches Sulfa (Sulfonamide Allergy Hives Verified 04/06/20 09:56 Antibiotics) sulfamethoxazole Allergy Hives Verified 04/13/20 11:24 [From Bactrim] trimethoprim [From Bactrim] Allergy Hives Verified 04/13/20 11:24 ezetimibe [From Zetia] AdvReac Nausea Verified 04/06/20 09:56 horseradish AdvReac Diarrhea Verified 04/06/20 09:56 losartan AdvReac Dizziness Verified 04/06/20 09:56 rosuvastatin [From Crestor] AdvReac Muscle Verified 04/06/20 09:56 Aches Home Meds: Home Meds Aspirin [Ecotrin EC] 81 mg PO DAILY 11/05/16 [History] Calcium Carbonate [Calcium] 600 mg PO DAILY 11/05/16 [History] Clopidogrel [Plavix] 75 mg PO DAILY 11/05/16 [History] Hydrochlorothiazide 25 mg PO DAILY 11/05/16 [History] Metoprolol Succinate [Toprol XL] 100 mg PO DAILY 11/05/16 [History] [place]-3 Fatty Acids [Maxepa] 1,000 mg PO WITHDINNER 11/05/16 [History] [place]-3 Fatty Acids [Maxepa] 2,000 mg PO DAILY 11/05/16 [History] Sertraline [Zoloft] 100 mg PO DAILY 11/05/16 [History] amLODIPine [Norvasc] 5 mg PO DAILY 11/05/16 [History] buPROPion [Wellbutrin SR] 150 mg PO BID 11/05/16 [History] Albuterol [Proair HFA] 2 puff INH Q4HR PRN 01/11/18 [History] Insulin Glargine,Hum.Rec.Anlog [Basaglar Kwikpen U-100] 30 unit SQ DAILY MDD pt has been titrating up 01/11/18 [History] Magnesium 100 mg PO DAILY 01/11/18 [History] glipiZIDE [Glucotrol] 10 mg PO DAILY 01/11/18 [History] metFORMIN HCl [Glucophage] 1,000 mg PO BID 01/11/18 [History] HYDROmorphone [Dilaudid] 4 mg PO Q6H PRN 04/06/20 [History] Fluticasone Propionate [Flonase] 2 spray DAILY PRN 04/13/20 [History] Past Medical History HEENT History: Reports: Impaired Vision Cardiovascular History: Reports: CAD, High Cholesterol, Hypertension, Stents Respiratory History: Reports: COPD Gastrointestinal History: Reports: Other (See Below) Other Gastrointestinal History: obesity Musculoskeletal History: Reports: Arthritis, Osteoarthritis, Other (See Below) Other Musculoskeletal History: Genralized arthritis Neurological History: Reports: Concussion, Other (See Below) Psychiatric History: Reports: Depression Endocrine/Metabolic History: Reports: Diabetes, Type II Immunologic History: Reports: Other (See Below) - Past Surgical History Cardiovascular Surgical History: Reports: Coronary Artery Stent, Other (See Below) GI Surgical History: Reports: None Musculoskeletal Surgical History: Reports: Arthroscopic Knee, Hip Replacement Other Musculoskeletal Surgeries/Procedures:: left knee in the - History Comment History Comment: right cartoid endarterectomy. right hip replacment. 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[facility], 1 in [facility]) ED ROS GENERAL - Review of Systems Review Of Systems: See Below Constitutional: Reports: No Symptoms HEENT: Reports: No Symptoms Respiratory: Reports: No Symptoms Cardiovascular: Reports: No Symptoms Endocrine: Reports: No Symptoms GI/Abdominal: Reports: No Symptoms : Reports: No Symptoms Musculoskeletal: Reports: No Symptoms Skin: Reports: No Symptoms Neurological: Reports: Other (L sided weakness, resolved) Psychiatric: Reports: No Symptoms Hematologic/Lymphatic: Reports: No Symptoms Immunologic: Reports: No Symptoms ED EXAM, GENERAL - Physical Exam Exam: See Below Exam Limited By: No Limitations General Appearance: Alert, WD/WN, No Apparent Distress Eye Exam: Bilateral Eye: EOMI, PERRL Throat/Mouth: Normal Inspection, Normal Oropharynx, Normal Voice Head: Atraumatic, Normocephalic Neck: Normal Inspection, Supple, Non-Tender, Full Range of Motion Respiratory/Chest: No Respiratory Distress, Lungs Clear, Normal Breath Sounds, No Accessory Muscle Use, Chest Non-Tender Cardiovascular: Normal Peripheral Pulses, Regular Rate, Rhythm, No Edema, No Gallop, No JVD, No Murmur, No Rub Peripheral Pulses: 4+: Radial (L) GI/Abdominal: Soft, Non-Tender, No Distention, No Mass (Male) Exam: Deferred Rectal (Males) Exam: Deferred Back Exam: Normal Inspection, Full Range of Motion Extremities: Normal Inspection, Normal Range of Motion, Non-Tender, No Pedal Edema, Normal Capillary Refill Neurological: Alert, Oriented, CN II-XII Intact, Normal Cognition, Normal Gait, Normal Reflexes, No Motor/Sensory Deficits Psychiatric: Normal Affect, Normal Mood Skin Exam: Warm, Dry, Intact, Normal Color, No Rash #1 Interpretation Rhythm: NSR [place]: Normal P-Wave: Present QRS: Normal ST-T: Normal QT: Normal EKG Interpretation Comments: NSR, septal ST depression. No ST elevation Course - Orders/Labs/Meds Orders: Active Orders 24 hr Category Date Time Status EKG Documentation Completion [RC] STAT Care 10/31/20 10:28 Active Blood Alcohol [ETHANOL BLOOD MEDICAL] [CHEM] Stat Lab 10/31/20 10:31 Received COMPREHENSIVE METABOLIC PN,CMP [CHEM] Stat Lab 10/31/20 10:31 Received CRP [C-REACTIVE PROTEIN] [CHEM] Stat Lab 10/31/20 10:31 Received MAGNESIUM [CHEM] Stat Lab 10/31/20 10:31 Received PTT,PARTIAL THROMBOPLSTIN TIME [COAG] Stat Lab 10/31/20 10:31 Received TSH ULTRASENSITIVE [CHEM] Stat Lab 10/31/20 10:31 Received UA RFX FLORIN AND CULT IF INDIC [URIN] Stat Lab 10/31/20 10:29 Ordered Dextrose 50% in Water Med 10/31/20 10:30 Active 25 ml IV ASDIRECTED PRN Medication Orders Dextrose/Water (Dextrose 50% In Water) 25 ml IV ASDIRECTED PRN PRN Reason: Hypoglycemia Labs: Laboratory Tests 10/31/20 10/31/20 10/31/20 Range/Units 10:31 10:31 10:34 WBC 5.4 (4.0-10.0) x10^3/uL RBC 4.03 L (4.5-6.0) x10^6/uL Hgb 12.1 L D (14.0-18.0) g/dL Hct 36.6 L (40.0-52.0) % MCV 90.8 (78.0-93.0) fL MCH 30.0 (26.0-32.0) pg MCHC 33.1 (32.0-36.0) g/dL RDW Coeff of Vijay 12.8 (10.0-15.0) % Plt Count 138 (130-400) x10^3/uL Neut % (Auto) 73.2 (50.0-80.0) % Lymph % (Auto) 16.9 L (25.0-50.0) % [place] % (Auto) 5.1 (2.0-11.0) % Eos % (Auto) 4.4 H (0.0-4.0) % Baso % (Auto) 0.4 (0.2-1.2) % PT 10.4 (9.9-12.5) SEC INR 0.9 L (2.0-3.5) POC Glucose (74-106) mg/dL POC Troponin I 0.76 H* (0.00-0.08) ng/mL POC Result Comm Called critical res 10/31/20 Range/Units 10:36 WBC (4.0-10.0) x10^3/uL RBC (4.5-6.0) x10^6/uL Hgb (14.0-18.0) g/dL Hct (40.0-52.0) % MCV (78.0-93.0) fL MCH (26.0-32.0) pg MCHC (32.0-36.0) g/dL RDW Coeff of Vijay (10.0-15.0) % Plt Count (130-400) x10^3/uL Neut % (Auto) (50.0-80.0) % Lymph % (Auto) (25.0-50.0) % [place] % (Auto) (2.0-11.0) % Eos % (Auto) (0.0-4.0) % Baso % (Auto) (0.2-1.2) % PT (9.9-12.5) SEC INR (2.0-3.5) POC Glucose 144 H (74-106) mg/dL POC Troponin I (0.00-0.08) ng/mL POC Result Comm Meds: Medications Generic Name Dose Route Start Last Admin Trade Name Freq PRN Reason Stop Dose Admin Dextrose/Water 25 ml 10/31/20 10:30 Dextrose 50% In Water IV ASDIRECTED PRN Hypoglycemia Discontinued Medications Generic Name Dose Route Start Last Admin Trade Name Freq PRN Reason Stop Dose Admin Dextrose/Water Confirm 10/31/20 10:36 Dextrose 50% In Water Administered 10/31/20 10:37 Dose 50 ml .ROUTE .STK-MED ONE - Radiology Interpretation Free Text/Narrative:: CT brain negative for acute pathology. Departure - Departure Time of Disposition: 11:23 Disposition: DC/Tfer to Acute Hospital 02 Clinical Impression: TIA (transient ischemic attack), NSTEMI (non-ST elevated myocardial infarction), Hypoglycemia - Discharge Information - Problem List Review Problem List Initiated/Reviewed/Updated: Yes - My Orders Last 24 Hours: My Active Orders 10/31/20 10:28 EKG Documentation Completion [RC] STAT 10/31/20 10:29 UA RFX FLORIN AND CULT IF INDIC [URIN] Stat 10/31/20 10:30 Dextrose 50% in Water 25 ml IV ASDIRECTED PRN 10/31/20 10:31 Blood Alcohol [ETHANOL BLOOD MEDICAL] [CHEM] Stat COMPREHENSIVE METABOLIC PN,CMP [CHEM] Stat CRP [C-REACTIVE PROTEIN] [CHEM] Stat MAGNESIUM [CHEM] Stat PTT,PARTIAL THROMBOPLSTIN TIME [COAG] Stat TSH ULTRASENSITIVE [CHEM] Stat - Assessment/Plan Last 24 Hours: My Active Orders 10/31/20 10:28 EKG Documentation Completion [RC] STAT 10/31/20 10:29 UA RFX FLORIN AND CULT IF INDIC [URIN] Stat 10/31/20 10:30 Dextrose 50% in Water 25 ml IV ASDIRECTED PRN 10/31/20 10:31 Blood Alcohol [ETHANOL BLOOD MEDICAL] [CHEM] Stat COMPREHENSIVE METABOLIC PN,CMP [CHEM] Stat CRP [C-REACTIVE PROTEIN] [CHEM] Stat MAGNESIUM [CHEM] Stat PTT,PARTIAL THROMBOPLSTIN TIME [COAG] Stat TSH ULTRASENSITIVE [CHEM] Stat Plan: Pt. was examined. NIH stoke scale was 1 for expressive aphasia. He has had no L sided weakness since admission. He was given a half amp of D50. Troponin was elevated. No ST elevation noted. Pt. denies any chest pain. Pt. will be transferred to [facility]. [facility] is accepting. He will be transported by [facility] ground ambulance.
--- NOTE | 2020-10-31 11:06 | CT ---
[id number] CT/CT Head WO IV EXAM: CT Head WO IV CLINICAL DATA: LEFT-SIDED WEAKNESS COMPARISON: CORRELATION IS MADE WITH JULY 21, 2019 FINDINGS: There is no mass or mass effect. There is no hemorrhage or hydrocephalus. There are no extra-axial fluid collections. There are no sites of abnormal attenuation. IMPRESSION: NO PLAIN CT EVIDENCE OF ACUTE INTRACRANIAL PROCESS. Michael Roberson MD 10/31/20 2130 Thank you for allowing us to participate in the care of your patient.
[2020-10-31 11:09] LABS: CHLORIDE,CL 99 mmol/L (98-107); SODIUM,NA 139 mmol/L (136-145)
[2020-10-31 11:10] LABS: ANION GAP 11.4 mmol/L (5-15)
== END 2020-10-31 11:51 | disposition short-term general hospital (02) ==
LOC: VM.ED 10:23
DX: G45.9 Transient cerebral ischemic attack, unspecified (principal); I21.4 Non-ST elevation (NSTEMI) myocardial infarction; E11.649 Type 2 diabetes mellitus with hypoglycemia without coma; I25.10 Atherosclerotic heart disease of native coronary artery without angina pectoris; I10 Essential (primary) hypertension; J44.9 Chronic obstructive pulmonary disease, unspecified; M19.90 Unspecified osteoarthritis, unspecified site; Z88.8 Allergy status to other drugs, medicaments and biological substances; Z88.2 Allergy status to sulfonamides; Z88.1 Allergy status to other antibiotic agents; Z91.018 Allergy to other foods; Z79.82 Long term (current) use of aspirin; Z79.02 Long term (current) use of antithrombotics/antiplatelets; Z79.4 Long term (current) use of insulin; Z79.899 Other long term (current) drug therapy
CPT/HCPCS: 36415; 70450; 80053; 80307; 82962; 83735; 84443; 84484; 85025; 85610; 85730; 86140; 93005; 93010; 99284; 99285-25

== ENCOUNTER 2020-11-19 23:36 | Observation (INO) | payer MEDICARE, OTHER ==
--- NOTE | 2020-11-20 00:48 | EDM.PDOC ---
ED HPI GENERAL MEDICAL PROBLEM - General Chief Complaint: General Stated Complaint: Possible Stoke Time Seen by Provider: 11/19/20 23:40 Source of Information: Reports: Patient, Family History Limitations: Reports: No Limitations - History of Present Illness INITIAL COMMENTS - FREE TEXT/NARRATIVE: states that she found patient in bed with a decreased level of consciousness. He was minimally responsive. EMS states that he was diaphoretic. Pt. states that he was hospitalized at [facility] in [place] and was discharged on 11/11 after undergoing 3 vessel CABG. He was seen in the ER in the middle of Oct. with TIA and NSTEMI and was transferred to [facility] at that time. EMS gave the patient 25gm if D50. Their glucometer read "low". Since then, he is awake and alert but was initially confused, unable to recall the events of the day or the particular information about his recent medical problems. states that he has been doing very well since the operation. She states that he helped her make dinner tonight, and ate a full meal of chili for supper and ice cream for dessert. She states that is poor about checking his blood sugars, and has had more "lows" recently. Pt. offers no complaints. Denies any chest pain or shortness of breath. No fever or chills. No nausea, vomiting or diarrhea. Denies any head trauma. Pt. has a history or expressive aphasia. He is not experiencing any numbness/tingling in his extremities. No pronator drift. Denies any headache. Denies any vision loss or change. Onset Date: 11/19/20 Location: Reports: Generalized Associated Symptoms: Reports: Confusion, Diaphoresis, Weakness Treatments BUTADIENE CONVERTER HELPER: Reports: Other (see below) Other Treatments BUTADIENE CONVERTER HELPER: Amp of D50 - Related Data Allergies Allergy/AdvReac Type Severity Reaction Status Date / Time duloxetine [From Cymbalta] Allergy Other Verified 11/20/20 00:55 Bhjtybb-Zrq-Zqk Reductase Allergy Muscle Verified 11/20/20 00:55 Inhibitor Aches Sulfa (Sulfonamide Allergy Hives Verified 11/20/20 00:55 Antibiotics) sulfamethoxazole Allergy Hives Verified 11/20/20 00:55 [From Bactrim] trimethoprim [From Bactrim] Allergy Hives Verified 11/20/20 00:55 ezetimibe [From Zetia] AdvReac Nausea Verified 11/20/20 00:55 horseradish AdvReac Diarrhea Verified 11/20/20 00:55 losartan AdvReac Dizziness Verified 11/20/20 00:55 rosuvastatin [From Crestor] AdvReac Muscle Verified 11/20/20 00:55 Aches Home Meds: Home Meds Aspirin [Ecotrin EC] 81 mg PO DAILY 11/05/16 [History] Calcium Carbonate [Calcium] 600 mg PO DAILY 11/05/16 [History] Clopidogrel [Plavix] 75 mg PO DAILY 11/05/16 [History] Hydrochlorothiazide 25 mg PO DAILY 11/05/16 [History] Metoprolol Succinate [Toprol XL] 100 mg PO DAILY 11/05/16 [History] [place]-3 Fatty Acids [Maxepa] 1,000 mg PO WITHDINNER 11/05/16 [History] [place]-3 Fatty Acids [Maxepa] 2,000 mg PO DAILY 11/05/16 [History] Sertraline [Zoloft] 100 mg PO DAILY 11/05/16 [History] amLODIPine [Norvasc] 5 mg PO DAILY 11/05/16 [History] buPROPion [Wellbutrin SR] 150 mg PO BID 11/05/16 [History] Albuterol [Proair HFA] 2 puff INH Q4HR PRN 01/11/18 [History] Insulin Glargine,Hum.Rec.Anlog [Basaglar Kwikpen U-100] 30 unit SQ DAILY MDD pt has been titrating up 01/11/18 [History] Magnesium 100 mg PO DAILY 01/11/18 [History] glipiZIDE [Glucotrol] 10 mg PO DAILY 01/11/18 [History] metFORMIN HCl [Glucophage] 1,000 mg PO BID 01/11/18 [History] HYDROmorphone [Dilaudid] 4 mg PO Q6H PRN 04/06/20 [History] Fluticasone Propionate [Flonase] 2 spray DAILY PRN 04/13/20 [History] Past Medical History HEENT History: Reports: Impaired Vision Cardiovascular History: Reports: CAD, High Cholesterol, Hypertension, Stents Respiratory History: Reports: COPD Gastrointestinal History: Reports: Other (See Below) Other Gastrointestinal History: obesity Musculoskeletal History: Reports: Arthritis, Osteoarthritis, Other (See Below) Other Musculoskeletal History: Genralized arthritis Neurological History: Reports: Concussion, Other (See Below) Psychiatric History: Reports: Depression Endocrine/Metabolic History: Reports: Diabetes, Type II Immunologic History: Reports: Other (See Below) - Past Surgical History Cardiovascular Surgical History: Reports: Coronary Artery Stent, Other (See Below) GI Surgical History: Reports: None Musculoskeletal Surgical History: Reports: Arthroscopic Knee, Hip Replacement Other Musculoskeletal Surgeries/Procedures:: left knee in the - History Comment History Comment: right cartoid endarterectomy. right hip replacment. 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 Denies: Diarrhea, Difficulty Swallowing, Nausea, Vomiting : Reports: No Symptoms Musculoskeletal: Reports: No Symptoms Skin: Reports: No Symptoms Neurological: Reports: Other (expressive aphasia) Psychiatric: Reports: No Symptoms Hematologic/Lymphatic: Reports: No Symptoms Immunologic: Reports: No Symptoms ED EXAM, GENERAL - Physical Exam Exam: See Below Exam Limited By: No Limitations General Appearance: Alert, WD/WN, No Apparent Distress Eye Exam: Bilateral Eye: EOMI, Normal Fundi, PERRL Nose: Normal Inspection, Normal Mucosa, No Blood Throat/Mouth: Normal Inspection, Normal Lips, Normal Teeth, Normal Oropharynx, Normal Voice Head: Atraumatic, Normocephalic Neck: Normal Inspection, Supple, Non-Tender Respiratory/Chest: No Respiratory Distress, Lungs Clear, Normal Breath Sounds, No Accessory Muscle Use, Chest Non-Tender Cardiovascular: Normal Peripheral Pulses, Regular Rate, Rhythm, No Edema, No JVD Peripheral Pulses: 4+: Radial (R) GI/Abdominal: Soft, Non-Tender, No Distention, No Mass (Male) Exam: Deferred Rectal (Males) Exam: Deferred Back Exam: Normal Inspection, Full Range of Motion Extremities: Normal Inspection, Normal Range of Motion, No Pedal Edema, Normal Capillary Refill Neurological: Alert, Oriented, CN II-XII Intact, Normal Cognition, Normal Reflexes, No Motor/Sensory Deficits, Other (Expressive aphasia, unchanged from previous) Psychiatric: Normal Affect, Normal Mood Skin Exam: Warm, Dry, Intact, Normal Color, No Rash #1 Interpretation Rhythm: NSR QRS: RBBB Course - Vital Signs Last Recorded V/S: Last Vital Signs Temp 36.5 C 11/19/20 23:45 Pulse 72 11/19/20 23:45 Resp 17 11/19/20 23:45 BP 145/57 H 11/19/20 23:45 Pulse Ox 96 11/19/20 23:45 - Orders/Labs/Meds Orders: Active Orders 24 hr Category Date Time Status Patient Status [ADT] Routine ADT 11/20/20 04:37 Ordered Chest 1V Frontal [CR] Stat Exams 11/19/20 23:50 Taken Head wo Cont [CT] Stat Exams 11/19/20 23:50 Taken CORONAVIRUS COVID-19 RAPID [MOLEC] Stat Lab 11/20/20 04:37 Ordered Labs: Laboratory Tests 11/19/20 11/20/20 11/20/20 Range/Units 23:43 00:14 00:14 WBC 6.1 (4.0-10.0) x10^3/uL RBC 3.13 L (4.5-6.0) x10^6/uL Hgb 9.6 L D (14.0-18.0) g/dL Hct 30.1 L (40.0-52.0) % MCV 96.2 H D (78.0-93.0) fL MCH 30.7 (26.0-32.0) pg MCHC 31.9 L (32.0-36.0) g/dL RDW Coeff of Vijay 14.3 (10.0-15.0) % Plt Count 187 (130-400) x10^3/uL Neut % (Auto) 83.6 H (50.0-80.0) % Lymph % (Auto) 8.6 L (25.0-50.0) % [place] % (Auto) 4.1 (2.0-11.0) % Eos % (Auto) 3.4 (0.0-4.0) % Baso % (Auto) 0.3 (0.2-1.2) % PT 10.6 (9.9-12.5) SEC INR 1.0 L (2.0-3.5) APTT (25.6-32.8) SEC Sodium (136-145) mmol/L Potassium (3.5-5.1) mmol/L Chloride (98-107) mmol/L Carbon Dioxide (21-32) mmol/L Anion Gap (5-15) mmol/L BUN (7-18) mg/dL Creatinine (0.70-1.30) mg/dL Est Cr Clr Drug Dosing mL/min Estimated GFR (MDRD) Glucose (74-106) mg/dL POC Glucose 97 (74-106) mg/dL Calcium (8.5-10.1) mg/dL Corrected Calcium (8.5-10.1) mg/dL Total Bilirubin (0.2-1.0) mg/dL AST (15-37) U/L ALT (16-63) U/L Alkaline Phosphatase (46-116) U/L Troponin I High Sens (<=76) ng/L C-Reactive Protein (<=0.9) mg/dL Total Protein (6.4-8.2) g/dL Albumin (3.4-5.0) g/dL Globulin Albumin/Globulin Ratio TSH, Ultra Sensitive (0.358-3.74) uIU/mL 11/20/20 11/20/20 11/20/20 Range/Units 00:14 00:14 04:04 WBC (4.0-10.0) x10^3/uL RBC (4.5-6.0) x10^6/uL Hgb (14.0-18.0) g/dL Hct (40.0-52.0) % MCV (78.0-93.0) fL MCH (26.0-32.0) pg MCHC (32.0-36.0) g/dL RDW Coeff of Vijay (10.0-15.0) % Plt Count (130-400) x10^3/uL Neut % (Auto) (50.0-80.0) % Lymph % (Auto) (25.0-50.0) % [place] % (Auto) (2.0-11.0) % Eos % (Auto) (0.0-4.0) % Baso % (Auto) (0.2-1.2) % PT (9.9-12.5) SEC INR (2.0-3.5) APTT 26.6 (25.6-32.8) SEC Sodium 140 (136-145) mmol/L Potassium 4.4 (3.5-5.1) mmol/L Chloride 104 (98-107) mmol/L Carbon Dioxide 30 (21-32) mmol/L Anion Gap 10.4 (5-15) mmol/L BUN 28 H (7-18) mg/dL Creatinine 1.8 H (0.70-1.30) mg/dL Est Cr Clr Drug Dosing 39.35 mL/min Estimated GFR (MDRD) 38 Glucose 55 L (74-106) mg/dL POC Glucose (74-106) mg/dL Calcium 9.0 (8.5-10.1) mg/dL Corrected Calcium 9.88 (8.5-10.1) mg/dL Total Bilirubin 0.4 (0.2-1.0) mg/dL AST 19 (15-37) U/L ALT 16 (16-63) U/L Alkaline Phosphatase 81 (46-116) U/L Troponin I High Sens 118 H* 124 H* (<=76) ng/L C-Reactive Protein 7.0 H (<=0.9) mg/dL Total Protein 7.1 (6.4-8.2) g/dL Albumin 2.9 L (3.4-5.0) g/dL Globulin 4.2 Albumin/Globulin Ratio 0.69 TSH, Ultra Sensitive 6.573 H (0.358-3.74) uIU/mL - Radiology Interpretation Free Text/Narrative:: CT brain negative for acute pathology Chest x-ray showed no infiltrate or consolidation. Lucency projecting over the lateral aspect of L lung base, skin fold vs. pneumothorax. Pt. lung sounds are equal and his is not short of breath. Certainly this could be residual post surgical change. - Re-Assessments/Exams Free Text/Narrative Re-Assessment/Exam: Pt. troponin on admission was 118. This was trended after 4 hours and found to be mildly elevated at 124. Decision was made to admit patient, and recheck his troponin again in 4 hours. He has been sleeping, and denies any chest pain or shortness of breath. Departure - Departure Time of Disposition: 04:42 Disposition: Refer to Observation Clinical Impression: Elevated troponin - Discharge Information Referrals: Adelaide Mcdaniel DO [Primary Care Provider] - Forms: ED Department Discharge Sepsis Event Note (ED) - Evaluation Sepsis Screening Result: No Definite Risk - Focused Exam Vital Signs: Vital Signs Temp Pulse Resp BP Pulse Ox 11/19/20 23:45 36.5 C 72 17 145/57 H 96 - Problem List Review Problem List Initiated/Reviewed/Updated: Yes - My Orders Last 24 Hours: My Active Orders 11/19/20 23:50 Chest 1V Frontal [CR] Stat Head wo Cont [CT] Stat 11/20/20 04:37 Patient Status [ADT] Routine CORONAVIRUS COVID-19 RAPID [MOLEC] Stat - Assessment/Plan Last 24 Hours: My Active Orders 11/19/20 23:50 Chest 1V Frontal [CR] Stat Head wo Cont [CT] Stat 11/20/20 04:37 Patient Status [ADT] Routine CORONAVIRUS COVID-19 RAPID [MOLEC] Stat Plan: Pt. will be admitted. Will repeat troponin at 9AM. If there is no significant increase, he will be discharged. He is a code 1. Will hold his medications for now. Covid 19 is pending.
[2020-11-20 00:52] LABS: ANION GAP 10.4 mmol/L (5-15)
--- NOTE | 2020-11-20 07:47 | CT ---
[id number] CT/CT Head WO IV EXAM: NONCONTRAST HEAD CT INDICATION: CONFUSION, RECENT HEART SURGERY COMPARISON: October 31, 2020. DISCUSSION: There is mild generalized atrophy. Mild multifocal white matter hypoattenuation is nonspecific, but generally ascribed to chronic small vessel ischemia. No mass effect or midline shift. No acute hemorrhage or extra-axial fluid collection. No acute territorial infarct is identified. A limited look at the orbits and paranasal sinuses is unremarkable. IMPRESSION: 1. No acute findings. Tesfaye Oreilly MD 11/20/20 0746 Thank you for allowing us to participate in the care of your patient.
--- NOTE | 2020-11-20 08:32 | CR ---
[id number] RAD/RAD Chest Portable EXAM: PORTABLE CHEST INDICATION: CONFUSION, RECENT HEART SURGERY COMPARISON: January 15, 2018. DISCUSSION: Lucency ejecting over the lateral aspect of the lower left hemithorax, skin fold versus small pneumothorax. A standing PA view with the arms lifted could provide further evaluation. Normal heart size. No effusions. Sternotomy. IMPRESSION: 1. [place] versus small lateral pneumothorax in the left lung base. A repeat exam with standing PA technique could provide further evaluation. Alternatively an unenhanced chest CT could provide further characterization. Tesfaye Oreilly MD 11/20/20 7630 Thank you for allowing us to participate in the care of your patient.
[2020-11-20 10:35] VITALS: BP 145/64; PULSE 76
--- NOTE | 2020-11-20 14:44 | PCM.DCSUM1 ---
Discharge Summary - Hospital Course Free Text/Narrative:: Pt. was admitted observation overnight due to slow recovery from hypoglycemic episode and elevated troponin. Pt. Troponin was trended and is now decreasing. He states that he is not currently experiencing any chest pain or shortness of breath, and hasn't been since admission. Pt. was hospitalized from until November 13 at [facility] during which time he had a 3 vessel bypass surgery. He states that he has been feeling well since them. Again, found him minimally responsive and diaphoretic at home. EMS was summoned. He was found to have a low blood glucose and was given an amp of D50. Pt. was initially slow to respond to this, but is now alert, eating, and interactive. He is able to recall events of the day. His chronic expressive aphasia seems less pronounced today. He is sitting on the edge of the bed talking to his . He has been up walking and using the bathroom with no difficulty. Initial blood glucose was 118mg/dl. This was rechecked in 3 hours and found to be 124mg/dl. He was admitted early this AM and troponin was again checked at 9:30 AM and found to be in the 90s. Diagnosis: Stroke: No - Discharge Data Discharge Date: 11/20/20 Discharge Disposition: Home, Self-Care 01 Condition: Good - Referral to Home Health Primary Care Physician: Adelaide Mcdaniel, DO - Discharge Diagnosis/Problem(s) (1) Elevated troponin SNOMED Code(s): 071237455, 472669151, 095997632 ICD Code: R77.8 - OTHER SPECIFIED ABNORMALITIES OF PLASMA PROTEINS Status: Acute (2) Hypoglycemia SNOMED Code(s): 366153861 ICD Code: E16.2 - HYPOGLYCEMIA, UNSPECIFIED Status: Acute - Discharge Plan Home Medications: Home Meds Aspirin [Ecotrin EC] 81 mg PO DAILY 11/05/16 [History] Calcium Carbonate [Calcium] 600 mg PO DAILY 11/05/16 [History] Clopidogrel [Plavix] 75 mg PO DAILY 11/05/16 [History] Hydrochlorothiazide 25 mg PO DAILY 11/05/16 [History] Metoprolol Succinate [Toprol XL] 100 mg PO DAILY 11/05/16 [History] [place]-3 Fatty Acids [Maxepa] 1,000 mg PO WITHDINNER 11/05/16 [History] [place]-3 Fatty Acids [Maxepa] 2,000 mg PO DAILY 11/05/16 [History] Sertraline [Zoloft] 100 mg PO DAILY 11/05/16 [History] amLODIPine [Norvasc] 5 mg PO DAILY 11/05/16 [History] buPROPion [Wellbutrin SR] 150 mg PO BID 11/05/16 [History] Albuterol [Proair HFA] 2 puff INH Q4HR PRN 01/11/18 [History] Insulin Glargine,Hum.Rec.Anlog [Basaglar Kwikpen U-100] 30 unit SQ DAILY MDD pt has been titrating up 01/11/18 [History] Magnesium 100 mg PO DAILY 01/11/18 [History] glipiZIDE [Glucotrol] 10 mg PO DAILY 01/11/18 [History] metFORMIN HCl [Glucophage] 1,000 mg PO BID 01/11/18 [History] HYDROmorphone [Dilaudid] 4 mg PO Q6H PRN 04/06/20 [History] Fluticasone Propionate [Flonase] 2 spray DAILY PRN 04/13/20 [History] Forms: ED Department Discharge Referrals: Adelaide Mcdaniel DO [Primary Care Provider] - - Discharge Summary/Plan Comment DC Time >30 min.: Yes Discharge Summary/Plan Comment: Home to rest. Recheck in clinic in 7-10 days, sooner if you have any chest pain or shortness of breath. Check your blood sugar more frequently, especially before taking a nap/going to sleep. - General Info Date of Service: 11/20/20 Functional Status: Reports: Pain Controlled - Review of Systems General: Reports: No Symptoms HEENT: Reports: No Symptoms Pulmonary: Reports: No Symptoms Cardiovascular: Reports: No Symptoms. Denies: Chest Pain, Palpitations, Dyspnea on Exertion, Orthopnea, PND, Edema, Lightheadedness Gastrointestinal: Reports: No Symptoms Genitourinary: Reports: No Symptoms Musculoskeletal: Reports: No Symptoms Skin: Reports: No Symptoms Neurological: Reports: No Symptoms Psychiatric: Reports: No Symptoms - Patient Data Vitals - Most Recent: Last Vital Signs Temp 37.0 C 11/20/20 10:00 Pulse 76 11/20/20 10:00 Resp 16 11/20/20 10:00 BP 145/64 H 11/20/20 10:00 Pulse Ox 95 11/20/20 10:00 Weight - Most Recent: 72.575 kg I&O - Last 24 hours: Intake & Output 11/19/20 11/20/20 11/20/20 22:59 06:59 14:59 Intake Total 100 240 Balance 100 240 Lab Results - Last 24 hrs: Laboratory Results - last 24 hr 11/19/20 11/20/20 11/20/20 Range/Units 23:43 00:14 00:14 WBC 6.1 (4.0-10.0) x10^3/uL RBC 3.13 L (4.5-6.0) x10^6/uL Hgb 9.6 L D (14.0-18.0) g/dL Hct 30.1 L (40.0-52.0) % MCV 96.2 H D (78.0-93.0) fL MCH 30.7 (26.0-32.0) pg MCHC 31.9 L (32.0-36.0) g/dL RDW Coeff of Vijay 14.3 (10.0-15.0) % Plt Count 187 (130-400) x10^3/uL Neut % (Auto) 83.6 H (50.0-80.0) % Lymph % (Auto) 8.6 L (25.0-50.0) % [place] % (Auto) 4.1 (2.0-11.0) % Eos % (Auto) 3.4 (0.0-4.0) % Baso % (Auto) 0.3 (0.2-1.2) % PT 10.6 (9.9-12.5) SEC INR 1.0 L (2.0-3.5) APTT (25.6-32.8) SEC Sodium (136-145) mmol/L Potassium (3.5-5.1) mmol/L Chloride (98-107) mmol/L Carbon Dioxide (21-32) mmol/L Anion Gap (5-15) mmol/L BUN (7-18) mg/dL Creatinine (0.70-1.30) mg/dL Est Cr Clr Drug Dosing mL/min Estimated GFR (MDRD) Glucose (74-106) mg/dL POC Glucose 97 (74-106) mg/dL Calcium (8.5-10.1) mg/dL Corrected Calcium (8.5-10.1) mg/dL Total Bilirubin (0.2-1.0) mg/dL AST (15-37) U/L ALT (16-63) U/L Alkaline Phosphatase (46-116) U/L Troponin I High Sens (<=76) ng/L C-Reactive Protein (<=0.9) mg/dL Total Protein (6.4-8.2) g/dL Albumin (3.4-5.0) g/dL Globulin Albumin/Globulin Ratio TSH, Ultra Sensitive (0.358-3.74) uIU/mL SARS CoV-2 RNA Rapid CARLOS ALBERTO (NEGATIVE) 11/20/20 11/20/20 11/20/20 Range/Units 00:14 00:14 04:04 WBC (4.0-10.0) x10^3/uL RBC (4.5-6.0) x10^6/uL Hgb (14.0-18.0) g/dL Hct (40.0-52.0) % MCV (78.0-93.0) fL MCH (26.0-32.0) pg MCHC (32.0-36.0) g/dL RDW Coeff of Vijay (10.0-15.0) % Plt Count (130-400) x10^3/uL Neut % (Auto) (50.0-80.0) % Lymph % (Auto) (25.0-50.0) % [place] % (Auto) (2.0-11.0) % Eos % (Auto) (0.0-4.0) % Baso % (Auto) (0.2-1.2) % PT (9.9-12.5) SEC INR (2.0-3.5) APTT 26.6 (25.6-32.8) SEC Sodium 140 (136-145) mmol/L Potassium 4.4 (3.5-5.1) mmol/L Chloride 104 (98-107) mmol/L Carbon Dioxide 30 (21-32) mmol/L Anion Gap 10.4 (5-15) mmol/L BUN 28 H (7-18) mg/dL Creatinine 1.8 H (0.70-1.30) mg/dL Est Cr Clr Drug Dosing 39.35 mL/min Estimated GFR (MDRD) 38 Glucose 55 L (74-106) mg/dL POC Glucose (74-106) mg/dL Calcium 9.0 (8.5-10.1) mg/dL Corrected Calcium 9.88 (8.5-10.1) mg/dL Total Bilirubin 0.4 (0.2-1.0) mg/dL AST 19 (15-37) U/L ALT 16 (16-63) U/L Alkaline Phosphatase 81 (46-116) U/L Troponin I High Sens 118 H* 124 H* (<=76) ng/L C-Reactive Protein 7.0 H (<=0.9) mg/dL Total Protein 7.1 (6.4-8.2) g/dL Albumin 2.9 L (3.4-5.0) g/dL Globulin 4.2 Albumin/Globulin Ratio 0.69 TSH, Ultra Sensitive 6.573 H (0.358-3.74) uIU/mL SARS CoV-2 RNA Rapid CARLOS ALBERTO (NEGATIVE) 11/20/20 11/20/20 Range/Units 04:38 09:29 WBC (4.0-10.0) x10^3/uL RBC (4.5-6.0) x10^6/uL Hgb (14.0-18.0) g/dL Hct (40.0-52.0) % MCV (78.0-93.0) fL MCH (26.0-32.0) pg MCHC (32.0-36.0) g/dL RDW Coeff of Vijay (10.0-15.0) % Plt Count (130-400) x10^3/uL Neut % (Auto) (50.0-80.0) % Lymph % (Auto) (25.0-50.0) % [place] % (Auto) (2.0-11.0) % Eos % (Auto) (0.0-4.0) % Baso % (Auto) (0.2-1.2) % PT (9.9-12.5) SEC INR (2.0-3.5) APTT (25.6-32.8) SEC Sodium (136-145) mmol/L Potassium (3.5-5.1) mmol/L Chloride (98-107) mmol/L Carbon Dioxide (21-32) mmol/L Anion Gap (5-15) mmol/L BUN (7-18) mg/dL Creatinine (0.70-1.30) mg/dL Est Cr Clr Drug Dosing mL/min Estimated GFR (MDRD) Glucose (74-106) mg/dL POC Glucose (74-106) mg/dL Calcium (8.5-10.1) mg/dL Corrected Calcium (8.5-10.1) mg/dL Total Bilirubin (0.2-1.0) mg/dL AST (15-37) U/L ALT (16-63) U/L Alkaline Phosphatase (46-116) U/L Troponin I High Sens 99 H* (<=76) ng/L C-Reactive Protein (<=0.9) mg/dL Total Protein (6.4-8.2) g/dL Albumin (3.4-5.0) g/dL Globulin Albumin/Globulin Ratio TSH, Ultra Sensitive (0.358-3.74) uIU/mL SARS CoV-2 RNA Rapid CARLOS ALBERTO Negative (NEGATIVE) - Exam General: Reports: Alert, Oriented, Cooperative HEENT: Reports: Pupils Equal, Pupils Reactive, EOMI, Mucous Membr. Moist/[place] Neck: Reports: Supple Lungs: Reports: Clear to Auscultation, Normal Respiratory Effort Cardiovascular: Reports: Regular Rate, Regular Rhythm GI/Abdominal Exam: Normal Bowel Sounds, Soft, Non-Tender, No Distention, No Mass (Male) Exam: No Hernia Rectal (Males) Exam: Deferred Back Exam: Reports: Normal Inspection, Full Range of Motion Extremities: Normal Inspection, Normal Range of Motion Skin: Reports: Warm, Dry, Intact Wound/Incisions: Reports: Healing Well Neurological: Reports: No New Focal Deficit Psy/Mental Status: Reports: Alert, Normal Affect, Normal Mood
== END 2020-11-20 11:10 | disposition home or self-care (01) ==
LOC: SUPCPDRO 23:36 → VM.ED 23:36 → VM.MS 11-20 04:37 → UNDOADMOB 11-20 05:03 → VM.MS 11-20 05:03
PROVIDERS: ADMIT Physician Assistant; ATTEND Physician Assistant
DX: R40.4 Transient alteration of awareness (principal); R77.8 Other specified abnormalities of plasma proteins; E16.2 Hypoglycemia, unspecified; I10 Essential (primary) hypertension; I25.10 Atherosclerotic heart disease of native coronary artery without angina pectoris; E78.00 Pure hypercholesterolemia, unspecified; J44.9 Chronic obstructive pulmonary disease, unspecified; I21.4 Non-ST elevation (NSTEMI) myocardial infarction; Z20.822 Contact with and (suspected) exposure to COVID-19; Z88.2 Allergy status to sulfonamides; Z88.8 Allergy status to other drugs, medicaments and biological substances; Z91.018 Allergy to other foods; Z91.09 Other allergy status, other than to drugs and biological substances; Z79.82 Long term (current) use of aspirin; Z79.899 Other long term (current) drug therapy; Z79.4 Long term (current) use of insulin; Z95.5 Presence of coronary angioplasty implant and graft; Z86.73 Personal history of transient ischemic attack (TIA), and cerebral infarction without residual deficits; Z98.890 Other specified postprocedural states
CPT/HCPCS: 36415; 70450; 71045; 80053; 82962; 84443; 84484; 85025; 85610; 85730; 86140; 93005; 93010; 99217; 99220; 99285-25; G0378; U0002

== ENCOUNTER 2020-12-13 22:40 | Emergency (ER) | payer MEDICARE, OTHER ==
[2020-12-13 23:23] VITALS: PULSE 56
--- NOTE | 2020-12-13 23:27 | EDM.PDOC ---
ED HPI GENERAL MEDICAL PROBLEM - General Chief Complaint: General Stated Complaint: Hypoglycemia, Insulin dependent DM Time Seen by Provider: 12/13/20 23:27 Source of Information: Reports: Patient, EMS, Family - History of Present Illness INITIAL COMMENTS - FREE TEXT/NARRATIVE: Stan is a 65 y/o male who is brought to the ER after his called EMS tonight when his blood sugar got low. His checked his blood sugar when he wasn't talking and his eyes "looked funny". She reports that his sugar was 20. He did take his evening insulin. He took Levemir 30 units tonight. EMS arrived and gave him 1 amp of d50 and his sugar increased to 114 prior to arrival to the ER. He had a CABG last month and since then has just not had much of an appetite. He has been losing weight despite trying to drink Ensure. He does have an appt in the clinic tomorrow AM with Dr Mcdaniel. Treatments SERVICENOW ADMINISTRATOR: Reports: IV/IO, Other (see below) Other Treatments SERVICENOW ADMINISTRATOR: Amp of D50 - Related Data Allergies Allergy/AdvReac Type Severity Reaction Status Date / Time duloxetine [From Cymbalta] Allergy Other Verified 12/13/20 23:23 Sboprfz-Rgx-Roj Reductase Allergy Muscle Verified 12/13/20 23:23 Inhibitor Aches Sulfa (Sulfonamide Allergy Hives Verified 12/13/20 23:23 Antibiotics) sulfamethoxazole Allergy Hives Verified 12/13/20 23:23 [From Bactrim] trimethoprim [From Bactrim] Allergy Hives Verified 12/13/20 23:23 ezetimibe [From Zetia] AdvReac Nausea Verified 12/13/20 23:23 horseradish AdvReac Diarrhea Verified 12/13/20 23:23 losartan AdvReac Dizziness Verified 12/13/20 23:23 rosuvastatin [From Crestor] AdvReac Muscle Verified 12/13/20 23:23 Aches Home Meds: Home Meds Aspirin [Ecotrin EC] 81 mg PO DAILY 11/05/16 [History] Calcium Carbonate [Calcium] 600 mg PO DAILY 11/05/16 [History] Hydrochlorothiazide 25 mg PO DAILY 11/05/16 [History] Metoprolol Succinate [Toprol XL] 100 mg PO DAILY 11/05/16 [History] [place]-3 Fatty Acids [Maxepa] 1,000 mg PO WITHDINNER 11/05/16 [History] Sertraline [Zoloft] 100 mg PO DAILY 11/05/16 [History] amLODIPine [Norvasc] 5 mg PO DAILY 11/05/16 [History] buPROPion [Wellbutrin SR] 150 mg PO BID 11/05/16 [History] Albuterol [Proair HFA] 2 puff INH Q4HR PRN 01/11/18 [History] Insulin Glargine,Hum.Rec.Anlog [Basaglar Kwikpen U-100] 30 unit SQ DAILY MDD pt has been titrating up 01/11/18 [History] glipiZIDE [Glucotrol] 10 mg PO BID 01/11/18 [History] metFORMIN HCl [Glucophage] 1,000 mg PO BID 01/11/18 [History] HYDROmorphone [Dilaudid] 4 mg PO Q6H PRN 04/06/20 [History] Amiodarone [Cordarone] 400 mg PO DAILY 12/13/20 [History] Magnesium Oxide [Magnesium] 400 mg PO DAILY 12/13/20 [History] Pantoprazole Sodium [Protonix] 40 mg PO DAILY 12/13/20 [History] Pravastatin Sodium 10 mg PO DAILY 12/13/20 [History] oxyCODONE HCl/Acetaminophen [Oxycodone-Acetaminophen 5-325] 5 - 325 mg PO Q4HR PRN 12/13/20 [History] Past Medical History HEENT History: Reports: Impaired Vision Cardiovascular History: Reports: CAD, High Cholesterol, Hypertension, Stents Respiratory History: Reports: COPD Gastrointestinal History: Reports: Other (See Below) Other Gastrointestinal History: obesity Musculoskeletal History: Reports: Arthritis, Osteoarthritis, Other (See Below) Other Musculoskeletal History: Genralized arthritis Neurological History: Reports: Concussion, Other (See Below) Psychiatric History: Reports: Depression Endocrine/Metabolic History: Reports: Diabetes, Type II Immunologic History: Reports: Other (See Below) - Past Surgical History Cardiovascular Surgical History: Reports: Coronary Artery Stent, Other (See Below) GI Surgical History: Reports: None Musculoskeletal Surgical History: Reports: Arthroscopic Knee, Hip Replacement Other Musculoskeletal Surgeries/Procedures:: left knee in the - History Comment History Comment: right cartoid endarterectomy. right hip replacment. 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 [facility], 1 in [facility]) ED ROS GENERAL - Review of Systems Review Of Systems: See Below Constitutional: Reports: Weight Loss HEENT: Reports: No Symptoms Respiratory: Reports: No Symptoms Cardiovascular: Reports: No Symptoms Endocrine: Reports: No Symptoms GI/Abdominal: Reports: Decreased Appetite : Reports: No Symptoms Musculoskeletal: Reports: No Symptoms Skin: Reports: No Symptoms Neurological: Reports: No Symptoms Psychiatric: Reports: No Symptoms Hematologic/Lymphatic: Reports: No Symptoms Immunologic: Reports: No Symptoms ED EXAM, GENERAL - Physical Exam Exam: See Below Exam Limited By: No Limitations General Appearance: Alert, WD/WN, No Apparent Distress (Elderly male, looks weak and like he is recovering from surger.) Ears: Normal External Exam, Normal Canal, Hearing Grossly Normal, Normal TMs Nose: Normal Inspection, Normal Mucosa Throat/Mouth: Normal Inspection, Normal Lips, Normal Voice Head: Atraumatic, Normocephalic Neck: Supple Respiratory/Chest: No Respiratory Distress, Lungs Clear, Chest Non-Tender, Other (Note healing midline surgical incision with sutures protruding from chest tube insertion sites.) Cardiovascular: Normal Peripheral Pulses, Regular Rate, Rhythm, No Murmur GI/Abdominal: Normal Bowel Sounds, Soft, Non-Tender (Male) Exam: Deferred Rectal (Males) Exam: Deferred Back Exam: Normal Inspection Extremities: Normal Inspection, Normal Range of Motion, Normal Capillary Refill Neurological: Alert, Oriented, CN II-XII Intact, Normal Cognition Psychiatric: Normal Affect Skin Exam: Warm, Dry, Pallor Lymphatic: No Adenopathy Course - Vital Signs Text/Narrative:: 2327 The patient was seen by the GAS DISTRIBUTION PLANT OPERATOR. Labs ordered. He was given something to eat. A liter of D5LR IV was given. 0020 Lab reviewed. UA pending yet as he is unable to void. IV fluids continue. CBC Plt=83, CMP BUN=46, Lien Searcher=2.2, (BUN=28 and Lien Searcher=1.8 on 11-20-2020 admission), CRP=5.8. Suspect some dehydration in addition at CKD. Hypoglycemia probable to recent weight loss and overmedication with anti-insulin agents. 0045 HE=595 now after IV fluids done. Still very poor appetite. No further sx of hypoglycemia, anxious to go home to bed. Will have pt hold insulin, Glipizide, and Glucophage until seen by PCP. Patient and his were given discharge instructions and left the ER in stable condition. Last Recorded V/S: Last Vital Signs Temp 36.5 C 12/13/20 22:40 Pulse 56 L 12/13/20 22:40 Resp 16 12/13/20 22:40 BP 88/59 L 12/13/20 22:40 Pulse Ox 94 L 12/13/20 22:40 - Orders/Labs/Meds Orders: Active Orders 24 hr Category Date Time Status UA RFX FLORIN AND CULT IF INDIC [URIN] Stat Lab 12/13/20 23:27 Ordered Dextrose 5%-Lactated Ringers 1,000 ml Med 12/13/20 23:45 Active IV ASDIRECTED Medication Orders Dextrose/Lactated Ringer's (Dextrose 5%-Lactated Ringers) 1,000 mls @ 999 mls/hr IV ASDIRECTED CESAR Last Admin: 12/13/20 23:47 Dose: 999 mls/hr Documented by: NGA Labs: Laboratory Tests 12/13/20 12/13/20 12/14/20 Range/Units 23:20 23:20 00:19 WBC 7.4 (4.0-10.0) x10^3/uL RBC 4.12 L (4.5-6.0) x10^6/uL Hgb 12.4 L D (14.0-18.0) g/dL Hct 37.6 L (40.0-52.0) % MCV 91.3 D (78.0-93.0) fL MCH 30.1 (26.0-32.0) pg MCHC 33.0 (32.0-36.0) g/dL RDW Coeff of Vijay 14.1 (10.0-15.0) % Plt Count 187 (130-400) x10^3/uL Neut % (Auto) 83.0 H (50.0-80.0) % Lymph % (Auto) 5.8 L (25.0-50.0) % [place] % (Auto) 3.9 (2.0-11.0) % Eos % (Auto) 7.2 H (0.0-4.0) % Baso % (Auto) 0.1 L (0.2-1.2) % Sodium 139 (136-145) mmol/L Potassium 4.1 (3.5-5.1) mmol/L Chloride 98 (98-107) mmol/L Carbon Dioxide 31 (21-32) mmol/L Anion Gap 14.1 (5-15) mmol/L BUN 46 H (7-18) mg/dL Creatinine 2.2 H (0.70-1.30) mg/dL Est Cr Clr Drug Dosing 27.18 mL/min Estimated GFR (MDRD) 30 Glucose 45 L (74-106) mg/dL POC Glucose 109 H (74-106) mg/dL Calcium 9.5 (8.5-10.1) mg/dL Corrected Calcium 10.14 H (8.5-10.1) mg/dL Magnesium 1.8 (1.8-2.4) mg/dL Total Bilirubin 0.3 (0.2-1.0) mg/dL AST 19 (15-37) U/L ALT 15 L (16-63) U/L Alkaline Phosphatase 102 (46-116) U/L C-Reactive Protein 5.8 H (<=0.9) mg/dL Total Protein 8.3 H (6.4-8.2) g/dL Albumin 3.2 L (3.4-5.0) g/dL Globulin 5.1 Albumin/Globulin Ratio 0.63 Meds: Medications Generic Name Dose Route Start Last Admin Trade Name Freq PRN Reason Stop Dose Admin Dextrose/Lactated Ringer's 1,000 mls @ 999 mls/hr 12/13/20 23:45 12/13/20 23:47 Dextrose 5%-Lactated Ringers IV 999 mls/hr ASDIRECTED CESAR Administration Departure - Departure Time of Disposition: 00:51 Disposition: Home, Self-Care 01 Condition: Good Clinical Impression: Hypoglycemia, Unintended weight loss CKD (chronic kidney disease) Qualifiers: Chronic kidney disease stage: stage 3 (moderate) Diabetes mellitus Qualifiers: Diabetes mellitus type: type 2 Diabetes mellitus safety advisor insulin use: with safety advisor use Diabetes mellitus complication status: without complication Qualif ied Code(s): E11.9 - Type 2 diabetes mellitus without complications; Z79.4 - FDC (current) use of insulin - Discharge Information Instructions: Hypoglycemia Referrals: Adelaide Mcdaniel DO [Primary Care Provider] - Forms: ED Department Discharge Sepsis Event Note (ED) - Evaluation Sepsis Screening Result: No Definite Risk - Focused Exam Vital Signs: Vital Signs Temp Pulse Resp BP Pulse Ox 12/13/20 22:40 36.5 C 56 L 16 88/59 L 94 L - My Orders Last 24 Hours: My Active Orders 12/13/20 23:27 UA RFX FLORIN AND CULT IF INDIC [URIN] Stat 12/13/20 23:45 Dextrose 5%-Lactated Ringers 1,000 ml IV ASDIRECTED - Assessment/Plan Last 24 Hours: My Active Orders 12/13/20 23:27 UA RFX FLORIN AND CULT IF INDIC [URIN] Stat 12/13/20 23:45 Dextrose 5%-Lactated Ringers 1,000 ml IV ASDIRECTED Assessment:: 1)Hypoglycemia 2)Unintended Weight Loss 3)CKD 4)DM-Insulin Controlled Plan: -Do not take any Levemir, Glipizide, or Glucophage until you are seen by Dr Mcdaniel -Make sure you are attempting to eat anything that you can to take calories in -Stay hydrated -Return to the ER for any concerns -Keep your 9AM appt on December with Dr Mcdaniel
[2020-12-13 23:44] LABS: ANION GAP 14.1 mmol/L (5-15)
[2020-12-13] MEDS: Dextrose 5%-Lactated Ringers 1,000 ML IV SCH (23:47)
[2020-12-14 02:55] VITALS: BP 104/50
== END 2020-12-14 01:01 | disposition home or self-care (01) ==
LOC: VM.ED 22:40
DX: E11.649 Type 2 diabetes mellitus with hypoglycemia without coma (principal); I12.9 Hypertensive chronic kidney disease with stage 1 through stage 4 chronic kidney disease, or unspecified chronic kidney disease; E11.22 Type 2 diabetes mellitus with diabetic chronic kidney disease; R63.4 Abnormal weight loss; I25.10 Atherosclerotic heart disease of native coronary artery without angina pectoris; E78.00 Pure hypercholesterolemia, unspecified; J44.9 Chronic obstructive pulmonary disease, unspecified; E66.9 Obesity, unspecified; M19.90 Unspecified osteoarthritis, unspecified site; Z79.82 Long term (current) use of aspirin; N18.30 Chronic kidney disease, stage 3 unspecified; Z79.4 Long term (current) use of insulin; Z88.8 Allergy status to other drugs, medicaments and biological substances; Z88.2 Allergy status to sulfonamides; Z95.5 Presence of coronary angioplasty implant and graft; Z91.018 Allergy to other foods
CPT/HCPCS: 36415; 80053; 82962; 83735; 85025; 86140; 99284; J7121

== ENCOUNTER 2020-12-14 06:17 | Observation (INO) | payer MEDICARE, OTHER ==
[2020-12-14] MEDS ORDERED: Sodium Chloride 0.9% 10 ML Syringe FLUSH PRN (06:37)
[2020-12-14] MEDS ORDERED: Dextrose 5%-Lactated Ringers 1,000 ML IV SCH (06:45)
--- NOTE | 2020-12-14 06:47 | EDM.PDOC ---
<Amie Peng - Last Filed: 12/14/20 09:08> ED HPI GENERAL MEDICAL PROBLEM - General Chief Complaint: General Stated Complaint: Hypoglycemia, Insulin Dependent Diabetic Time Seen by Provider: 12/14/20 06:36 Source of Information: Reports: EMS - History of Present Illness INITIAL COMMENTS - FREE TEXT/NARRATIVE: Stan is a 65 y/o male who is brought back to the ER by EMS after his found him on the floor in their home. HE had been in earlier in the night for a low blood sugar, but was given IV fluids and D50 and when he left the ER his blood sugar was in the 180s. Patient is groggy on arrival, he was given another amp of D50 prior to arrival. He has dried blood on his lips, but unsure if he is injured. reports that patient was alert and oriented at 0330 and she did not check his blood sugar because he seemed fine at that time. She then found him about 0515 and called 911. Treatments REVENUE INSPECTOR: Reports: Cervical Collar, IV/IO, Other (see below) Other Treatments REVENUE INSPECTOR: Amp of D50 - Related Data Allergies Allergy/AdvReac Type Severity Reaction Status Date / Time duloxetine [From Cymbalta] Allergy Other Verified 12/14/20 06:34 Krsffma-Vyq-Frt Reductase Allergy Muscle Verified 12/14/20 06:34 Inhibitor Aches Sulfa (Sulfonamide Allergy Hives Verified 12/14/20 06:34 Antibiotics) sulfamethoxazole Allergy Hives Verified 12/14/20 06:34 [From Bactrim] trimethoprim [From Bactrim] Allergy Hives Verified 12/14/20 06:34 ezetimibe [From Zetia] AdvReac Nausea Verified 12/14/20 06:34 horseradish AdvReac Diarrhea Verified 12/14/20 06:34 losartan AdvReac Dizziness Verified 12/14/20 06:34 rosuvastatin [From Crestor] AdvReac Muscle Verified 12/14/20 06:34 Aches Home Meds: Home Meds Aspirin [Ecotrin EC] 81 mg PO DAILY 11/05/16 [History] Calcium Carbonate [Calcium] 600 mg PO DAILY 11/05/16 [History] Hydrochlorothiazide 25 mg PO DAILY 11/05/16 [History] Metoprolol Succinate [Toprol XL] 100 mg PO DAILY 11/05/16 [History] Latty-3 Fatty Acids [Maxepa] 1,000 mg PO WITHDINNER 11/05/16 [History] Sertraline [Zoloft] 100 mg PO DAILY 11/05/16 [History] amLODIPine [Norvasc] 5 mg PO DAILY 11/05/16 [History] buPROPion [Wellbutrin SR] 150 mg PO BID 11/05/16 [History] Albuterol [Proair HFA] 2 puff INH Q4HR PRN 01/11/18 [History] Insulin Glargine,Hum.Rec.Anlog [Basaglar Kwikpen U-100] 30 unit SQ DAILY MDD pt has been titrating up 01/11/18 [History] glipiZIDE [Glucotrol] 10 mg PO BID 01/11/18 [History] metFORMIN HCl [Glucophage] 1,000 mg PO BID 01/11/18 [History] HYDROmorphone [Dilaudid] 4 mg PO Q6H PRN 04/06/20 [History] Amiodarone [Cordarone] 400 mg PO DAILY 12/13/20 [History] Magnesium Oxide [Magnesium] 400 mg PO DAILY 12/13/20 [History] Pantoprazole Sodium [Protonix] 40 mg PO DAILY 12/13/20 [History] Pravastatin Sodium 10 mg PO DAILY 12/13/20 [History] oxyCODONE HCl/Acetaminophen [Oxycodone-Acetaminophen 5-325] 5 - 325 mg PO Q4HR PRN 12/13/20 [History] Past Medical History HEENT History: Reports: Impaired Vision Cardiovascular History: Reports: CAD, High Cholesterol, Hypertension, Stents Respiratory History: Reports: COPD Gastrointestinal History: Reports: Other (See Below) Other Gastrointestinal History: obesity Musculoskeletal History: Reports: Arthritis, Osteoarthritis, Other (See Below) Other Musculoskeletal History: Genralized arthritis Neurological History: Reports: Concussion, Other (See Below) Psychiatric History: Reports: Depression Endocrine/Metabolic History: Reports: Diabetes, Type II Immunologic History: Reports: Other (See Below) - Past Surgical History Cardiovascular Surgical History: Reports: Coronary Artery Stent, Other (See Below) GI Surgical History: Reports: None Musculoskeletal Surgical History: Reports: Arthroscopic Knee, Hip Replacement Other Musculoskeletal Surgeries/Procedures:: left knee in the - History Comment History Comment: right cartoid endarterectomy. right hip replacment. 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 [facility], 1 in [facility]) ED ROS GENERAL - Review of Systems Review Of Systems: See Below Constitutional: Reports: Weakness, Decreased Appetite HEENT: Reports: No Symptoms Respiratory: Reports: No Symptoms Cardiovascular: Reports: No Symptoms Endocrine: Reports: Fatigue, Low Glucose GI/Abdominal: Reports: Decreased Appetite : Reports: No Symptoms Musculoskeletal: Reports: No Symptoms Skin: Reports: No Symptoms Neurological: Reports: Weakness Psychiatric: Reports: No Symptoms Hematologic/Lymphatic: Reports: No Symptoms ED EXAM, GENERAL - Physical Exam Exam: See Below General Appearance: Cachetic, Other (Drowsy elderly male, lying on ER cart. CCollar on, he can answer a few questions but is a bit confused.) Eye Exam: Bilateral Eye: PERRL Ears: Hearing Grossly Normal Nose: Normal Inspection Throat/Mouth: Normal Voice, Other (Note dried blood on lips) Head: Atraumatic, Normocephalic Neck: Normal Inspection, Other (C-collar on) Respiratory/Chest: No Respiratory Distress, Lungs Clear, Chest Non-Tender Cardiovascular: Regular Rate, Rhythm, Other (healing midline surgical scar noted) GI/Abdominal: Normal Bowel Sounds, Soft, Non-Tender (Male) Exam: Deferred Rectal (Males) Exam: Deferred Back Exam: Normal Inspection Extremities: Normal Inspection, Normal Range of Motion, Normal Capillary Refill Neurological: Alert, Slow to Respond Skin Exam: Warm, Dry, Intact, Pallor #1 Interpretation EKG Date: 12/14/20 Time: 07:04 Rhythm: NSR [place]: Normal P-Wave: Present QRS: RBBB QT: Prolonged EKG Interpretation Comments: SR with RBBB Prolonged QT Syndrome Course - Vital Signs Text/Narrative:: 0637 The patient was seen by the WASHER CUTTER. Labs, EKG, and CTs ordered. He was started on DRLR for IV fluids. 0750 Labs reviewed. CBC WBC=7.4, Plt=84.2; BMP BUN=43, Groundskeeper=2.1, Glfvmtc=571; Lactic Acid=2.2, Mg=1.6, Trop I=33. Notified Juan Fernandez CNP of patient status and will plan on admission. CTs pending. 0855 CTs both negative. Patient alert and C-Collar removed at this time. Will plan Observation at this time to monitor blood sugars. Mary Smith PAC to follow the patient. - Radiology Interpretation Free Text/Narrative:: CT Head WO=no acute findings (see final report) CT C Spine=no fx, no degenerative changes (See final report) CT Results Date: 12/14/20 CT Results Time: 08:53 Departure - Departure Time of Disposition: 09:02 Disposition: Refer to Observation Clinical Impression: Dehydration, Hypoglycemia - Discharge Information Sepsis Event Note (ED) - Evaluation Sepsis Screening Result: No Definite Risk <Keysha Smith - Last Filed: 12/14/20 09:38> Course - Vital Signs Text/Narrative:: Assessment completed on patient. Will admit for observation. Sliding scale insulin to determine dosage of insulin for at home based on meal intake and blood sugars. Hold glucatrol. IV LR as BUN elevated, poor oral intake. Patient agreed with plan Last Recorded V/S: Last Vital Signs Temp 97.3 F 12/14/20 06:17 Pulse 56 L 12/14/20 06:17 Resp 16 12/14/20 06:17 BP 128/44 L 12/14/20 06:17 Pulse Ox 94 L 12/14/20 06:17 - Orders/Labs/Meds Orders: Active Orders 24 hr Category Date Time Status Patient Status [ADT] Routine ADT 12/14/20 09:31 Ordered Blood Glucose Check, Bedside [RC] QIDACANDBED Care 12/14/20 09:31 Ordered Cardiac Monitoring [RC] CONTINUOUS Care 12/14/20 09:31 Ordered Oxygen Therapy [RC] PRN Care 12/14/20 09:31 Ordered Up With Assistance [RC] ASDIRECTED Care 12/14/20 09:31 Ordered VTE/DVT Education [RC] PER UNIT ROUTINE Care 12/14/20 09:31 Ordered Vital Signs [RC] Q4H Care 12/14/20 09:31 Ordered Heart Healthy Diet [DIET] Diet 12/14/20 Lunch Ordered CBC WITH AUTO DIFF [HEME] AM Lab 12/15/20 05:11 Ordered COMPREHENSIVE METABOLIC PN,CMP [CHEM] AM Lab 12/15/20 05:11 Ordered TROPONIN I HIGH SENSITIVITY [CHEM] Routine Lab 12/15/20 07:00 Ordered UA RFX FLORIN AND CULT IF INDIC [URIN] Stat Lab 12/14/20 06:38 Ordered Acetaminophen [TylenoL] Med 12/14/20 09:31 Ordered 650 mg PO Q4H PRN Dextrose 50% in Water Med 12/14/20 09:31 Ordered 50 ml IV ASDIRECTED PRN Enoxaparin [Lovenox] Med 12/14/20 09:31 Ordered 30 mg SUBCUT DAILY Glucagon,Human Recombinant [GlucaGen] Med 12/14/20 09:31 Ordered 1 mg IM ASDIRECTED PRN Insulin Lispro [HumaLOG] Med 12/14/20 12:00 Ordered See Protocol SUBCUT QID Ondansetron [Zofran ODT] Med 12/14/20 09:31 Ordered 4 mg PO Q4H PRN Sodium Chloride 0.9% [Saline Flush] Med 12/14/20 06:37 Active 10 ml FLUSH ASDIRECTED PRN Resuscitation Status Routine Resus Stat 12/14/20 09:25 Ordered Medication Orders Acetaminophen (Acetaminophen 325 Mg Tab) 650 mg PO Q4H PRN PRN Reason: Pain (Mild 1-3)/fever Amiodarone HCl (Amiodarone 200 Mg Tab) 400 mg PO DAILY [facility] Amlodipine Besylate (Amlodipine 5 Mg Tab) 5 mg PO DAILY [facility] Aspirin (Aspirin 81 Mg Tab.Ec) 81 mg PO DAILY [facility] Dextrose/Water (50% Dextrose In Water 50 Ml Syringe) 50 ml IV ASDIRECTED PRN PRN Reason: Hypoglycemia Enoxaparin Sodium (Enoxaparin 30 Mg/0.3 Ml Syringe) 30 mg SUBCUT DAILY [facility] Glucagon (Glucagon,Human Recombinant 1 Mg Vial) 1 mg IM ASDIRECTED PRN PRN Reason: Hypoglycemia Hydrochlorothiazide (Hydrochlorothiazide 25 Mg Tab) 25 mg PO DAILY [facility] Insulin Human Lispro (Insulin Lispro 100 Units/Ml 3 Ml Vial) 0 unit SUBCUT QID [facility]; Protocol Non-Formulary Medication (Albuterol) 2 puff INH Q4HR PRN PRN Reason: Wheezing Non-Formulary Medication (Bupropion [Wellbutrin Sr]) 150 mg PO BID [facility] Non-Formulary Medication (Hydromorphone [Dilaudid]) 4 mg PO Q6H PRN PRN Reason: Pain Non-Formulary Medication (Metformin Hcl [Glucophage]) 1,000 mg PO BID [facility] Non-Formulary Medication (Metoprolol Succinate [Toprol Xl]) 100 mg PO DAILY [facility] Non-Formulary Medication (Pravastatin Sodium [Pravastatin Sodium]) 10 mg PO DAILY [facility] Ondansetron HCl (Ondansetron 4 Mg Tab.Dis) 4 mg PO Q4H PRN PRN Reason: nausea, able to take PO Pantoprazole Sodium (Pantoprazole 40 Mg Tab.Cr) 40 mg PO DAILY [facility] Sertraline HCl (Sertraline 100 Mg Tab) 100 mg PO DAILY [facility] Sodium Chloride (Sodium Chloride 0.9% 10 Ml Syringe) 10 ml FLUSH ASDIRECTED PRN PRN Reason: Keep Vein Open Labs: Laboratory Tests 12/14/20 12/14/20 12/14/20 Range/Units 06:50 06:50 06:50 WBC 7.4 (4.0-10.0) x10^3/uL RBC 4.05 L (4.5-6.0) x10^6/uL Hgb 12.3 L (14.0-18.0) g/dL Hct 37.0 L (40.0-52.0) % MCV 91.4 (78.0-93.0) fL MCH 30.4 (26.0-32.0) pg MCHC 33.2 (32.0-36.0) g/dL RDW Coeff of Vijay 14.1 (10.0-15.0) % Plt Count 161 (130-400) x10^3/uL Neut % (Auto) 84.2 H (50.0-80.0) % Lymph % (Auto) 3.9 L (25.0-50.0) % [place] % (Auto) 5.4 (2.0-11.0) % Eos % (Auto) 6.5 H (0.0-4.0) % Baso % (Auto) 0.0 L (0.2-1.2) % Sodium 138 (136-145) mmol/L Potassium 3.6 (3.5-5.1) mmol/L Chloride 98 (98-107) mmol/L Carbon Dioxide 31 (21-32) mmol/L Anion Gap 12.6 (5-15) mmol/L BUN 43 H (7-18) mg/dL Creatinine 2.1 H (0.70-1.30) mg/dL Est Cr Clr Drug Dosing 28.47 mL/min Estimated GFR (MDRD) 32 Glucose 114 H (74-106) mg/dL Lactic Acid 2.2 H* (0.4-2.0) mmol/L Calcium 9.1 (8.5-10.1) mg/dL Magnesium (1.8-2.4) mg/dL Troponin I High Sens (<=76) ng/L 12/14/20 Range/Units 06:50 WBC (4.0-10.0) x10^3/uL RBC (4.5-6.0) x10^6/uL Hgb (14.0-18.0) g/dL Hct (40.0-52.0) % MCV (78.0-93.0) fL MCH (26.0-32.0) pg MCHC (32.0-36.0) g/dL RDW Coeff of Vijay (10.0-15.0) % Plt Count (130-400) x10^3/uL Neut % (Auto) (50.0-80.0) % Lymph % (Auto) (25.0-50.0) % [place] % (Auto) (2.0-11.0) % Eos % (Auto) (0.0-4.0) % Baso % (Auto) (0.2-1.2) % Sodium (136-145) mmol/L Potassium (3.5-5.1) mmol/L Chloride (98-107) mmol/L Carbon Dioxide (21-32) mmol/L Anion Gap (5-15) mmol/L BUN (7-18) mg/dL Creatinine (0.70-1.30) mg/dL Est Cr Clr Drug Dosing mL/min Estimated GFR (MDRD) Glucose (74-106) mg/dL Lactic Acid (0.4-2.0) mmol/L Calcium (8.5-10.1) mg/dL Magnesium 1.6 L (1.8-2.4) mg/dL Troponin I High Sens 33 (<=76) ng/L Meds: Medications Generic Name Dose Route Start Last Admin Trade Name Freq PRN Reason Stop Dose Admin Acetaminophen 650 mg 12/14/20 09:31 Acetaminophen 325 Mg Tab PO Q4H PRN Pain (Mild 1-3)/fever Amiodarone HCl 400 mg 12/14/20 09:45 Amiodarone 200 Mg Tab PO DAILY [facility] Amlodipine Besylate 5 mg 12/14/20 09:45 Amlodipine 5 Mg Tab PO DAILY [facility] Aspirin 81 mg 12/14/20 09:45 Aspirin 81 Mg Tab.Ec PO DAILY [facility] Dextrose/Water 50 ml 12/14/20 09:31 50% Dextrose In Water 50 Ml Syringe IV ASDIRECTED PRN Hypoglycemia Enoxaparin Sodium 30 mg 12/14/20 09:31 Enoxaparin 30 Mg/0.3 Ml Syringe SUBCUT DAILY [facility] Glucagon 1 mg 12/14/20 09:31 Glucagon,Human Recombinant 1 Mg Vial IM ASDIRECTED PRN Hypoglycemia Hydrochlorothiazide 25 mg 12/15/20 08:00 Hydrochlorothiazide 25 Mg Tab PO DAILY [facility] Insulin Human Lispro 0 unit 12/14/20 12:00 Insulin Lispro 100 Units/Ml 3 Ml Vial SUBCUT QID [facility] Protocol Non-Formulary Medication 2 puff 12/14/20 09:31 Albuterol INH Q4HR PRN Wheezing Non-Formulary Medication 150 mg 12/14/20 09:45 Bupropion [Wellbutrin Sr] PO BID [facility] Non-Formulary Medication 4 mg 12/14/20 09:31 Hydromorphone [Dilaudid] PO Q6H PRN Pain Non-Formulary Medication 1,000 mg 12/14/20 20:00 Metformin Hcl [Glucophage] PO BID [facility] Non-Formulary Medication 100 mg 12/14/20 09:45 Metoprolol Succinate [Toprol Xl] PO DAILY [facility] Non-Formulary Medication 10 mg 12/14/20 09:45 Pravastatin Sodium [Pravastatin Sodium] PO DAILY [facility] Ondansetron HCl 4 mg 12/14/20 09:31 Ondansetron 4 Mg Tab.Dis PO Q4H PRN nausea, able to take PO Pantoprazole Sodium 40 mg 12/14/20 09:45 Pantoprazole 40 Mg Tab.Cr PO DAILY [facility] Sertraline HCl 100 mg 12/14/20 09:45 Sertraline 100 Mg Tab PO DAILY [facility] Sodium Chloride 10 ml 12/14/20 06:37 Sodium Chloride 0.9% 10 Ml Syringe FLUSH ASDIRECTED PRN Keep Vein Open Discontinued Medications Generic Name Dose Route Start Last Admin Trade Name Tonioq PRN Reason Stop Dose Admin Dextrose/Lactated Ringer's 1,000 mls @ 250 mls/hr 12/14/20 06:45 12/14/20 06:40 Dextrose 5%-Lactated Ringers IV 250 mls/hr ASDIRECTED [facility] Administration Departure - Departure Time of Disposition: 09:36 Condition: Fair - Discharge Information *PRESCRIPTION DRUG MONITORING PROGRAM REVIEWED*: No *COPY OF PRESCRIPTION DRUG MONITORING REPORT IN PATIENT CLARE: No Sepsis Event Note (ED) - Focused Exam Vital Signs: Vital Signs Temp Pulse Resp BP Pulse Ox 12/14/20 06:17 97.3 F 56 L 16 128/44 L 94 L - Problem List & Annotations (1) Dehydration SNOMED Code(s): 76210381 Code(s): E86.0 - DEHYDRATION Status: Acute Priority: High Current Visit: Yes (2) Hypoglycemia SNOMED Code(s): 007234073 Code(s): E16.2 - HYPOGLYCEMIA, UNSPECIFIED Status: Acute Priority: High Current Visit: Yes - Problem List Review Problem List Initiated/Reviewed/Updated: Yes - My Orders Last 24 Hours: My Active Orders 12/14/20 09:25 Resuscitation Status Routine 12/14/20 09:31 Patient Status [ADT] Routine Blood Glucose Check, Bedside [RC] QIDACANDBED Cardiac Monitoring [RC] CONTINUOUS Oxygen Therapy [RC] PRN Up With Assistance [RC] ASDIRECTED VTE/DVT Education [RC] PER UNIT ROUTINE Vital Signs [RC] Q4H Acetaminophen [TylenoL] 650 mg PO Q4H PRN Dextrose 50% in Water 50 ml IV ASDIRECTED PRN Enoxaparin [Lovenox] 30 mg SUBCUT DAILY Glucagon,Human Recombinant [GlucaGen] 1 mg IM ASDIRECTED PRN Ondansetron [Zofran ODT] 4 mg PO Q4H PRN 12/14/20 Lunch Heart Healthy Diet [DIET] 12/14/20 12:00 Insulin Lispro [HumaLOG] See Protocol SUBCUT QID 12/15/20 05:11 CBC WITH AUTO DIFF [HEME] AM COMPREHENSIVE METABOLIC PN,CMP [CHEM] AM 12/15/20 07:00 TROPONIN I HIGH SENSITIVITY [CHEM] Routine - Assessment/Plan Admission H&P: Please use this note as an admission H&P Last 24 Hours: My Active Orders 12/14/20 09:25 Resuscitation Status Routine 12/14/20 09:31 Patient Status [ADT] Routine Blood Glucose Check, Bedside [RC] QIDACANDBED Cardiac Monitoring [RC] CONTINUOUS Oxygen Therapy [RC] PRN Up With Assistance [RC] ASDIRECTED VTE/DVT Education [RC] PER UNIT ROUTINE Vital Signs [RC] Q4H Acetaminophen [TylenoL] 650 mg PO Q4H PRN Dextrose 50% in Water 50 ml IV ASDIRECTED PRN Enoxaparin [Lovenox] 30 mg SUBCUT DAILY Glucagon,Human Recombinant [GlucaGen] 1 mg IM ASDIRECTED PRN Ondansetron [Zofran ODT] 4 mg PO Q4H PRN 12/14/20 Lunch Heart Healthy Diet [DIET] 12/14/20 12:00 Insulin Lispro [HumaLOG] See Protocol SUBCUT QID 12/15/20 05:11 CBC WITH AUTO DIFF [HEME] AM COMPREHENSIVE METABOLIC PN,CMP [CHEM] AM 12/15/20 07:00 TROPONIN I HIGH SENSITIVITY [CHEM] Routine Assessment:: Hypoglycemia Dehydration Plan: Admit to observation. Monitor blood sugars with sliding scale insulin. Hold glucatrol. IV LR for elevated BUN, poor oral intake.
[2020-12-14 07:21] LABS: ANION GAP 12.6 mmol/L (5-15)
--- NOTE | 2020-12-14 08:06 | CT ---
[id number] CT/CT Head WO IV EXAM: CT Head WO IV CLINICAL DATA: FALL, LOSS OF CONSCIOUSNESS. COMPARISON STUDY: November 20, 2020. FINDINGS: No intracranial hemorrhage, extra-axial fluid collection, mass, or acute ischemia. No hydrocephalus. Calvarium intact. Paranasal sinuses and mastoid air cells are clear. IMPRESSION: No acute intracranial findings. Sb Roche MD 12/14/20 0805 Thank you for allowing us to participate in the care of your patient.
--- NOTE | 2020-12-14 08:27 | CT ---
[id number] CT/CT Cervical Spine WO IV EXAM: NONCONTRAST CERVICAL SPINE CT INDICATION: FALL, LOSS OF CONSCIOUSNESS. COMPARISON: None. DISCUSSION: There is extensive osteophyte and syndesmophyte formation along the posterior longitudinal ligament and anterior margins of the vertebral bodies throughout the cervical spine. The posterior longitudinal ligament ossification results in significant central stenosis from C2 through C7 T1. Mild chronic appearing height loss in the C6 vertebral body. No acute fracture is identified. Disc heights are relatively maintained. Emphysematous changes are noted in the lung apices. IMPRESSION: 1. Changes of diffuse idiopathic skeletal hyperostosis. 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 MRI could further evaluate for cord compression or edema. 2. No acute fracture. Tesfaye Oreilly MD 12/14/20 0826 Thank you for allowing us to participate in the care of your patient.
[2020-12-14] MEDS ORDERED: 50% Dextrose in Water 50 ML Syringe IV PRN (09:31)
[2020-12-14] MEDS ORDERED: Acetaminophen 325 MG Tab PO PRN (09:31)
[2020-12-14] MEDS ORDERED: Glucagon,Human Recombinant 1 MG Vial IM PRN (09:31)
[2020-12-14] MEDS ORDERED: HYDROmorphone 2 MG Tab PO PRN (09:41)
[2020-12-14] MEDS ORDERED: Albuterol HFA 18 Gm Inhaler INH PRN (09:50)
[2020-12-14] MEDS: Lactated Ringers 1,000 ML IV SCH ×2 (10:41→21:21)
[2020-12-14] MEDS: Ondansetron 4 MG Tab.DIS PO PRN (10:42)
[2020-12-14] MEDS: buPROPion 150 MG Tab.ER PO SCH (10:43)
[2020-12-14] MEDS: Aspirin 81 MG Tab.EC PO SCH (10:43)
[2020-12-14] MEDS: Amiodarone 200 MG Tab PO SCH (10:43)
[2020-12-14] MEDS: Metoprolol Succinate 50 MG Tab.ER PO SCH (10:43)
[2020-12-14] MEDS: amLODIPine 5 MG Tab PO SCH (10:43)
[2020-12-14] MEDS: Sertraline 100 MG Tab PO SCH (10:44)
[2020-12-14] MEDS: Pantoprazole 40 MG Tab.CR PO SCH (10:44)
[2020-12-14] MEDS ORDERED: Insulin Lispro 100 Units/ML 3 ML Vial SUBCUT SCH (12:00)
--- NOTE | 2020-12-14 13:50 | CR ---
[id number] RAD/RAD Chest PA or AP 1V EXAM: RAD Chest PA or AP 1V INDICATION: ELEVATED LACTIC ACID. COMPARISON: None. DISCUSSION: Median sternotomy. Cardiomediastinal silhouette is normal in size and contour. Lungs are clear. No pleural effusion or pneumothorax. IMPRESSION: No acute findings. Sb Roche MD 12/14/20 6276 Thank you for allowing us to participate in the care of your patient.
[2020-12-14 15:40] LABS: BARBITURATE SCREEN,URINE NEGATIVE (NEGATIVE); BENZODIAZEPINES SCREEN,URINE NEGATIVE (NEGATIVE); EDDP,URINE SCREEN NEGATIVE (NEGATIVE); METHAMPHETAMINE SCREEN, URINE NEGATIVE (NEGATIVE); TCA SCREEN,URINE NEGATIVE (NEGATIVE); THC SCREEN,URINE 50 NG/ML NEGATIVE (NEGATIVE)
[2020-12-14] MEDS: Insulin Lispro 100 Units/ML 3 ML Vial SUBCUT SCH ×2 (17:18→19:41)
[2020-12-14] MEDS: Enoxaparin 30 MG/0.3 ML Syringe SUBCUT SCH (19:42)
[2020-12-15 07:00] LABS: ANION GAP 8.8 mmol/L (5-15)
[2020-12-15] MEDS: Amiodarone 200 MG Tab PO SCH (07:51)
[2020-12-15] MEDS: Ondansetron 4 MG Tab.DIS PO PRN (07:52)
[2020-12-15] MEDS: Simvastatin 10 MG Tab PO SCH ×2 (07:52→20:04)
[2020-12-15] MEDS: buPROPion 150 MG Tab.ER PO SCH (07:52)
[2020-12-15] MEDS: Pantoprazole 40 MG Tab.CR PO SCH (07:52)
[2020-12-15] MEDS: Sertraline 100 MG Tab PO SCH (07:52)
[2020-12-15] MEDS: Aspirin 81 MG Tab.EC PO SCH (07:52)
[2020-12-15] MEDS: Hydrochlorothiazide 25 MG Tab PO SCH (07:52)
[2020-12-15] MEDS: Metoprolol Succinate 50 MG Tab.ER PO SCH (07:55)
[2020-12-15] MEDS: amLODIPine 5 MG Tab PO SCH (07:56)
[2020-12-15] MEDS: Insulin Lispro 100 Units/ML 3 ML Vial SUBCUT SCH ×4 (07:56→20:04)
[2020-12-15] MEDS: Lactated Ringers 1,000 ML IV SCH ×2 (08:01→23:36)
--- NOTE | 2020-12-15 09:36 | PCM.PN ---
- General Info Date of Service: 12/15/20 Admission Dx/Problem (Free Text): Hospital day 2 for this patient that was admitted following several episodes of hypoglycemia, failure to thrive, decreased appetite, and lactic acidosis. Pt. is doing well this AM. His appetite is still poor. He states that he doesn't feel like eating or drinking much. He has been afebrile. Denies any chest pain. No shortness of breath. No focal weakness. He has been up and ambulating in the hallways. Pt. did have a cognitive eval and MMSE which nursing states he did poorly on. I do not have the specifics of the score, but a majority of the abnormalities are due to speech and expressive aphasia. To note, pt. has a history of expressive a phasia and memory issues, even before the surgery. Lactic acid is normalized. He has not been running a fever. CBC, chemistry are all within normal limits for the patient. Functional Status: Reports: Pain Controlled - Review of Systems General: Reports: No Symptoms HEENT: Reports: No Symptoms Pulmonary: Reports: No Symptoms Cardiovascular: Reports: No Symptoms Gastrointestinal: Reports: No Symptoms Genitourinary: Reports: No Symptoms Musculoskeletal: Reports: No Symptoms Skin: Reports: No Symptoms Neurological: Reports: Confusion, Other (Expressive aphasia, normal for the patient. He is at baseline according to family.) Psychiatric: Reports: No Symptoms - Patient Data Vitals - Most Recent: Last Vital Signs Temp 36.1 C 12/15/20 06:38 Pulse 58 L 12/15/20 06:38 Resp 16 12/15/20 06:38 BP 98/55 L 12/15/20 07:56 Pulse Ox 94 L 12/15/20 06:39 Weight - Most Recent: 64.552 kg I&O - Last 24 Hours: Intake & Output 12/14/20 12/15/20 12/15/20 22:59 06:59 14:59 Intake Total 1343 1038 360 Output Total 450 Balance 1343 588 360 Lab Results Last 24 Hours: Laboratory Results - last 24 hr 12/14/20 12/14/20 12/14/20 Range/Units 09:48 11:00 11:36 WBC (4.0-10.0) x10^3/uL RBC (4.5-6.0) x10^6/uL Hgb (14.0-18.0) g/dL Hct (40.0-52.0) % MCV (78.0-93.0) fL MCH (26.0-32.0) pg MCHC (32.0-36.0) g/dL RDW Coeff of [place] (10.0-15.0) % Plt Count (130-400) x10^3/uL Neut % (Auto) (50.0-80.0) % Lymph % (Auto) (25.0-50.0) % [place] % (Auto) (2.0-11.0) % Eos % (Auto) (0.0-4.0) % Baso % (Auto) (0.2-1.2) % Sodium (136-145) mmol/L Potassium (3.5-5.1) mmol/L Chloride (98-107) mmol/L Carbon Dioxide (21-32) mmol/L Anion Gap (5-15) mmol/L BUN (7-18) mg/dL Creatinine (0.70-1.30) mg/dL Est Cr Clr Drug Dosing mL/min Estimated GFR (MDRD) Glucose (74-106) mg/dL POC Glucose 115 H (74-106) mg/dL Lactic Acid 3.1 H* (0.4-2.0) mmol/L Calcium (8.5-10.1) mg/dL Corrected Calcium (8.5-10.1) mg/dL Total Bilirubin (0.2-1.0) mg/dL AST (15-37) U/L ALT (16-63) U/L Alkaline Phosphatase (46-116) U/L Troponin I High Sens (<=76) ng/L Total Protein (6.4-8.2) g/dL Albumin (3.4-5.0) g/dL Globulin Albumin/Globulin Ratio Urine Color (YELLOW) Urine Appearance (CLEAR) Urine pH (5.0-8.0) Ur Specific [place] Urine Protein (NEGATIVE) mg/dL Urine Glucose (UA) (NEGATIVE) mg/dL Urine Ketones (NEGATIVE) mg/dL Urine Occult Blood (NEGATIVE) Urine Nitrite (NEGATIVE) Urine Bilirubin (NEGATIVE) Urine Urobilinogen (0.2) EU/dL Ur Leukocyte Esterase (NEGATIVE) U Hyaline Cast (Auto) Urine RBC (NOT SEEN) /HPF Urine WBC (NOT SEEN) /HPF Ur Squamous Epith Cells (NOT SEEN) /HPF Amorphous Sediment Urine Bacteria (NOT SEEN) /HPF Urine Mucus (NOT SEEN) /LPF Urine Opiates Screen (NEAGTIVE) Ur Buprenorphine Scrn (NEGATIVE) Ur Oxycodone Screen (NEGATIVE) Ur EDDP (Meth Metab) (NEGATIVE) Urine Methadone Screen (NEGATIVE) Ur Barbiturates Screen (NEGATIVE) Ur Tricyclics Screen (NEGATIVE) Ur Phencyclidine Scrn (NEGATIVE) Ur Amphetamine Screen (NEGATIVE) U Methamphetamines Scrn (NEGATIVE) Urine MDMA Screen (NEGATIVE) U Benzodiazepines Scrn (NEGATIVE) U Cocaine Metab Screen (NEGATIVE) U Marijuana (THC) Screen (NEGATIVE) SARS CoV-2 RNA Rapid CARLOS ALBERTO Negative (NEGATIVE) 12/14/20 12/14/20 12/14/20 Range/Units 12:50 12:50 17:15 WBC (4.0-10.0) x10^3/uL RBC (4.5-6.0) x10^6/uL Hgb (14.0-18.0) g/dL Hct (40.0-52.0) % MCV (78.0-93.0) fL MCH (26.0-32.0) pg MCHC (32.0-36.0) g/dL RDW Coeff of [place] (10.0-15.0) % Plt Count (130-400) x10^3/uL Neut % (Auto) (50.0-80.0) % Lymph % (Auto) (25.0-50.0) % [place] % (Auto) (2.0-11.0) % Eos % (Auto) (0.0-4.0) % Baso % (Auto) (0.2-1.2) % Sodium (136-145) mmol/L Potassium (3.5-5.1) mmol/L Chloride (98-107) mmol/L Carbon Dioxide (21-32) mmol/L Anion Gap (5-15) mmol/L BUN (7-18) mg/dL Creatinine (0.70-1.30) mg/dL Est Cr Clr Drug Dosing mL/min Estimated GFR (MDRD) Glucose (74-106) mg/dL POC Glucose 99 (74-106) mg/dL Lactic Acid (0.4-2.0) mmol/L Calcium (8.5-10.1) mg/dL Corrected Calcium (8.5-10.1) mg/dL Total Bilirubin (0.2-1.0) mg/dL AST (15-37) U/L ALT (16-63) U/L Alkaline Phosphatase (46-116) U/L Troponin I High Sens (<=76) ng/L Total Protein (6.4-8.2) g/dL Albumin (3.4-5.0) g/dL Globulin Albumin/Globulin Ratio Urine Color Light yellow (YELLOW) Urine Appearance Clear (CLEAR) Urine pH 5.0 (5.0-8.0) Ur Specific [place] 1.020 Urine Protein Negative (NEGATIVE) mg/dL Urine Glucose (UA) Negative (NEGATIVE) mg/dL Urine Ketones Negative (NEGATIVE) mg/dL Urine Occult Blood Trace-intact H (NEGATIVE) Urine Nitrite Negative (NEGATIVE) Urine Bilirubin Negative (NEGATIVE) Urine Urobilinogen 0.2 (0.2) EU/dL Ur Leukocyte Esterase Negative (NEGATIVE) U Hyaline Cast (Auto) Few Urine RBC 0-5 (NOT SEEN) /HPF Urine WBC 0-5 (NOT SEEN) /HPF Ur Squamous Epith Cells Rare (NOT SEEN) /HPF Amorphous Sediment Few Urine Bacteria Not seen (NOT SEEN) /HPF Urine Mucus Not seen (NOT SEEN) /LPF Urine Opiates Screen Negative (NEAGTIVE) Ur Buprenorphine Scrn Negative (NEGATIVE) Ur Oxycodone Screen Negative (NEGATIVE) Ur EDDP (Meth Metab) Negative (NEGATIVE) Urine Methadone Screen Negative (NEGATIVE) Ur Barbiturates Screen Negative (NEGATIVE) Ur Tricyclics Screen Negative (NEGATIVE) Ur Phencyclidine Scrn Negative (NEGATIVE) Ur Amphetamine Screen Negative (NEGATIVE) U Methamphetamines Scrn Negative (NEGATIVE) Urine MDMA Screen Negative (NEGATIVE) U Benzodiazepines Scrn Negative (NEGATIVE) U Cocaine Metab Screen Negative (NEGATIVE) U Marijuana (THC) Screen Negative (NEGATIVE) SARS CoV-2 RNA Rapid CARLOS ALBERTO (NEGATIVE) 12/14/20 12/15/20 12/15/20 Range/Units 19:38 05:54 06:22 WBC 6.2 (4.0-10.0) x10^3/uL RBC 3.70 L (4.5-6.0) x10^6/uL Hgb 11.1 L (14.0-18.0) g/dL Hct 33.8 L (40.0-52.0) % MCV 91.4 (78.0-93.0) fL MCH 30.0 (26.0-32.0) pg MCHC 32.8 (32.0-36.0) g/dL RDW Coeff of [place] 14.1 (10.0-15.0) % Plt Count 135 (130-400) x10^3/uL Neut % (Auto) 66.0 (50.0-80.0) % Lymph % (Auto) 12.6 L (25.0-50.0) % [place] % (Auto) 5.0 (2.0-11.0) % Eos % (Auto) 16.2 H (0.0-4.0) % Baso % (Auto) 0.2 (0.2-1.2) % Sodium (136-145) mmol/L Potassium (3.5-5.1) mmol/L Chloride (98-107) mmol/L Carbon Dioxide (21-32) mmol/L Anion Gap (5-15) mmol/L BUN (7-18) mg/dL Creatinine (0.70-1.30) mg/dL Est Cr Clr Drug Dosing mL/min Estimated GFR (MDRD) Glucose (74-106) mg/dL POC Glucose 155 H 110 H (74-106) mg/dL Lactic Acid (0.4-2.0) mmol/L Calcium (8.5-10.1) mg/dL Corrected Calcium (8.5-10.1) mg/dL Total Bilirubin (0.2-1.0) mg/dL AST (15-37) U/L ALT (16-63) U/L Alkaline Phosphatase (46-116) U/L Troponin I High Sens (<=76) ng/L Total Protein (6.4-8.2) g/dL Albumin (3.4-5.0) g/dL Globulin Albumin/Globulin Ratio Urine Color (YELLOW) Urine Appearance (CLEAR) Urine pH (5.0-8.0) Ur Specific [place] Urine Protein (NEGATIVE) mg/dL Urine Glucose (UA) (NEGATIVE) mg/dL Urine Ketones (NEGATIVE) mg/dL Urine Occult Blood (NEGATIVE) Urine Nitrite (NEGATIVE) Urine Bilirubin (NEGATIVE) Urine Urobilinogen (0.2) EU/dL Ur Leukocyte Esterase (NEGATIVE) U Hyaline Cast (Auto) Urine RBC (NOT SEEN) /HPF Urine WBC (NOT SEEN) /HPF Ur Squamous Epith Cells (NOT SEEN) /HPF Amorphous Sediment Urine Bacteria (NOT SEEN) /HPF Urine Mucus (NOT SEEN) /LPF Urine Opiates Screen (NEAGTIVE) Ur Buprenorphine Scrn (NEGATIVE) Ur Oxycodone Screen (NEGATIVE) Ur EDDP (Meth Metab) (NEGATIVE) Urine Methadone Screen (NEGATIVE) Ur Barbiturates Screen (NEGATIVE) Ur Tricyclics Screen (NEGATIVE) Ur Phencyclidine Scrn (NEGATIVE) Ur Amphetamine Screen (NEGATIVE) U Methamphetamines Scrn (NEGATIVE) Urine MDMA Screen (NEGATIVE) U Benzodiazepines Scrn (NEGATIVE) U Cocaine Metab Screen (NEGATIVE) U Marijuana (THC) Screen (NEGATIVE) SARS CoV-2 RNA Rapid CARLOS ALBERTO (NEGATIVE) 12/15/20 12/15/20 12/15/20 Range/Units 06:22 06:22 06:22 WBC (4.0-10.0) x10^3/uL RBC (4.5-6.0) x10^6/uL Hgb (14.0-18.0) g/dL Hct (40.0-52.0) % MCV (78.0-93.0) fL MCH (26.0-32.0) pg MCHC (32.0-36.0) g/dL RDW Coeff of [place] (10.0-15.0) % Plt Count (130-400) x10^3/uL Neut % (Auto) (50.0-80.0) % Lymph % (Auto) (25.0-50.0) % [place] % (Auto) (2.0-11.0) % Eos % (Auto) (0.0-4.0) % Baso % (Auto) (0.2-1.2) % Sodium 141 (136-145) mmol/L Potassium 3.8 (3.5-5.1) mmol/L Chloride 103 (98-107) mmol/L Carbon Dioxide 33 H (21-32) mmol/L Anion Gap 8.8 (5-15) mmol/L BUN 34 H (7-18) mg/dL Creatinine 1.7 H (0.70-1.30) mg/dL Est Cr Clr Drug Dosing 37.75 mL/min Estimated GFR (MDRD) 40 Glucose 94 (74-106) mg/dL POC Glucose (74-106) mg/dL Lactic Acid 1.1 (0.4-2.0) mmol/L Calcium 8.6 (8.5-10.1) mg/dL Corrected Calcium 9.72 (8.5-10.1) mg/dL Total Bilirubin 0.3 (0.2-1.0) mg/dL AST 15 (15-37) U/L ALT 12 L (16-63) U/L Alkaline Phosphatase 84 (46-116) U/L Troponin I High Sens 34 (<=76) ng/L Total Protein 6.7 (6.4-8.2) g/dL Albumin 2.6 L (3.4-5.0) g/dL Globulin 4.1 Albumin/Globulin Ratio 0.63 Urine Color (YELLOW) Urine Appearance (CLEAR) Urine pH (5.0-8.0) Ur Specific [place] Urine Protein (NEGATIVE) mg/dL Urine Glucose (UA) (NEGATIVE) mg/dL Urine Ketones (NEGATIVE) mg/dL Urine Occult Blood (NEGATIVE) Urine Nitrite (NEGATIVE) Urine Bilirubin (NEGATIVE) Urine Urobilinogen (0.2) EU/dL Ur Leukocyte Esterase (NEGATIVE) U Hyaline Cast (Auto) Urine RBC (NOT SEEN) /HPF Urine WBC (NOT SEEN) /HPF Ur Squamous Epith Cells (NOT SEEN) /HPF Amorphous Sediment Urine Bacteria (NOT SEEN) /HPF Urine Mucus (NOT SEEN) /LPF Urine Opiates Screen (NEAGTIVE) Ur Buprenorphine Scrn (NEGATIVE) Ur Oxycodone Screen (NEGATIVE) Ur EDDP (Meth Metab) (NEGATIVE) Urine Methadone Screen (NEGATIVE) Ur Barbiturates Screen (NEGATIVE) Ur Tricyclics Screen (NEGATIVE) Ur Phencyclidine Scrn (NEGATIVE) Ur Amphetamine Screen (NEGATIVE) U Methamphetamines Scrn (NEGATIVE) Urine MDMA Screen (NEGATIVE) U Benzodiazepines Scrn (NEGATIVE) U Cocaine Metab Screen (NEGATIVE) U Marijuana (THC) Screen (NEGATIVE) SARS CoV-2 RNA Rapid CARLOS ALBERTO (NEGATIVE) Med Orders - Current: Current Medications Acetaminophen (Acetaminophen 325 Mg Tab) 650 mg PO Q4H PRN PRN Reason: Pain (Mild 1-3)/fever Albuterol (Albuterol Hfa 18 Gm Inhaler) 0 gm INH Q4HR PRN PRN Reason: Wheezing Amiodarone HCl (Amiodarone 200 Mg Tab) 400 mg PO DAILY [facility] Last Admin: 12/15/20 07:51 Dose: 400 mg Documented by: Amlodipine Besylate (Amlodipine 5 Mg Tab) 5 mg PO DAILY [facility] Last Admin: 12/15/20 07:56 Dose: Not Given Documented by: Aspirin (Aspirin 81 Mg Tab.Ec) 81 mg PO DAILY [facility] Last Admin: 12/15/20 07:52 Dose: 81 mg Documented by: Bupropion HCl (Bupropion 150 Mg Tab.Er) 150 mg PO DAILY [facility] Last Admin: 12/15/20 07:52 Dose: 150 mg Documented by: Dextrose/Water (50% Dextrose In Water 50 Ml Syringe) 50 ml IV ASDIRECTED PRN PRN Reason: Hypoglycemia Enoxaparin Sodium (Enoxaparin 30 Mg/0.3 Ml Syringe) 30 mg SUBCUT BEDTIME [facility] Last Admin: 12/14/20 19:42 Dose: 30 mg Documented by: Glucagon (Glucagon,Human Recombinant 1 Mg Vial) 1 mg IM ASDIRECTED PRN PRN Reason: Hypoglycemia Hydrochlorothiazide (Hydrochlorothiazide 25 Mg Tab) 25 mg PO DAILY [facility] Last Admin: 12/15/20 07:52 Dose: 25 mg Documented by: Hydromorphone HCl (Hydromorphone 2 Mg Tab) 4 mg PO Q6H PRN PRN Reason: Pain Lactated Ringer's (Ringers, Lactated) 1,000 mls @ 75 mls/hr IV ASDIRECTED [facility] Last Admin: 12/15/20 08:01 Dose: 75 mls/hr Documented by: Insulin Human Lispro (Insulin Lispro 100 Units/Ml 3 Ml Vial) 0 unit SUBCUT 080 0,1200,1730,2000 [facility]; Protocol Last Admin: 12/15/20 07:56 Dose: Not Given Documented by: Metformin HCl (Metformin 500 Mg Tab) 1,000 mg PO BIDMEALS [facility] Metoprolol Succinate (Metoprolol Succinate 50 Mg Tab.Er) 100 mg PO DAILY [facility] Last Admin: 12/15/20 07:55 Dose: Not Given Documented by: Ondansetron HCl (Ondansetron 4 Mg Tab.Dis) 4 mg PO Q4H PRN PRN Reason: nausea, able to take PO Last Admin: 12/15/20 07:52 Dose: 4 mg Documented by: Pantoprazole Sodium (Pantoprazole 40 Mg Tab.Cr) 40 mg PO DAILY [facility] Last Admin: 12/15/20 07:52 Dose: 40 mg Documented by: Sertraline HCl (Sertraline 100 Mg Tab) 100 mg PO DAILY [facility] Last Admin: 12/15/20 07:52 Dose: 100 mg Documented by: Simvastatin (Simvastatin 10 Mg Tab) 5 mg PO BEDTIME [facility] Last Admin: 12/15/20 07:52 Dose: 5 mg Documented by: Sodium Chloride (Sodium Chloride 0.9% 10 Ml Syringe) 10 ml FLUSH ASDIRECTED PRN PRN Reason: Keep Vein Open Discontinued Medications Dextrose/Lactated Ringer's (Dextrose 5%-Lactated Ringers) 1,000 mls @ 250 mls/hr IV ASDIRECTED [facility] Last Admin: 12/14/20 06:40 Dose: 250 mls/hr Documented by: Insulin Human Lispro (Insulin Lispro 100 Units/Ml 3 Ml Vial) 0 unit SUBCUT QID [facility]; Protocol Last Admin: 12/14/20 12:06 Dose: Not Given Documented by: - Exam Quality Assessment: Supplemental Oxygen General: Alert, Oriented HEENT: Pupils Equal, Pupils Reactive, EOMI, Mucous Membr. Moist/[place] Neck: Supple Lungs: Clear to Auscultation, Normal Respiratory Effort Cardiovascular: Regular Rate, Regular Rhythm GI/Abdominal Exam: Normal Bowel Sounds, Soft, Non-Tender, No Organomegaly, No Distention, No Abnormal Bruit, No Mass, Pelvis Stable (Male) Exam: Deferred Extremities: Normal Inspection, Normal Range of Motion, Non-Tender, No Pedal Edema, Normal Capillary Refill Skin: Warm, Dry, Intact Wound/Incisions: Healing Well Neurological: No New Focal Deficit Psy/Mental Status: Alert, Normal Affect, Normal Mood - Patient Data Lab Results Last 24 hrs: Laboratory Results - last 24 hr 12/14/20 12/14/20 12/14/20 Range/Units 09:48 11:00 11:36 WBC (4.0-10.0) x10^3/uL RBC (4.5-6.0) x10^6/uL Hgb (14.0-18.0) g/dL Hct (40.0-52.0) % MCV (78.0-93.0) fL MCH (26.0-32.0) pg MCHC (32.0-36.0) g/dL RDW Coeff of [place] (10.0-15.0) % Plt Count (130-400) x10^3/uL Neut % (Auto) (50.0-80.0) % Lymph % (Auto) (25.0-50.0) % [place] % (Auto) (2.0-11.0) % Eos % (Auto) (0.0-4.0) % Baso % (Auto) (0.2-1.2) % Sodium (136-145) mmol/L Potassium (3.5-5.1) mmol/L Chloride (98-107) mmol/L Carbon Dioxide (21-32) mmol/L Anion Gap (5-15) mmol/L BUN (7-18) mg/dL Creatinine (0.70-1.30) mg/dL Est Cr Clr Drug Dosing mL/min Estimated GFR (MDRD) Glucose (74-106) mg/dL POC Glucose 115 H (74-106) mg/dL Lactic Acid 3.1 H* (0.4-2.0) mmol/L Calcium (8.5-10.1) mg/dL Corrected Calcium (8.5-10.1) mg/dL Total Bilirubin (0.2-1.0) mg/dL AST (15-37) U/L ALT (16-63) U/L Alkaline Phosphatase (46-116) U/L Troponin I High Sens (<=76) ng/L Total Protein (6.4-8.2) g/dL Albumin (3.4-5.0) g/dL Globulin Albumin/Globulin Ratio Urine Color (YELLOW) Urine Appearance (CLEAR) Urine pH (5.0-8.0) Ur Specific [place] Urine Protein (NEGATIVE) mg/dL Urine Glucose (UA) (NEGATIVE) mg/dL Urine Ketones (NEGATIVE) mg/dL Urine Occult Blood (NEGATIVE) Urine Nitrite (NEGATIVE) Urine Bilirubin (NEGATIVE) Urine Urobilinogen (0.2) EU/dL Ur Leukocyte Esterase (NEGATIVE) U Hyaline Cast (Auto) Urine RBC (NOT SEEN) /HPF Urine WBC (NOT SEEN) /HPF Ur Squamous Epith Cells (NOT SEEN) /HPF Amorphous Sediment Urine Bacteria (NOT SEEN) /HPF Urine Mucus (NOT SEEN) /LPF Urine Opiates Screen (NEAGTIVE) Ur Buprenorphine Scrn (NEGATIVE) Ur Oxycodone Screen (NEGATIVE) Ur EDDP (Meth Metab) (NEGATIVE) Urine Methadone Screen (NEGATIVE) Ur Barbiturates Screen (NEGATIVE) Ur Tricyclics Screen (NEGATIVE) Ur Phencyclidine Scrn (NEGATIVE) Ur Amphetamine Screen (NEGATIVE) U Methamphetamines Scrn (NEGATIVE) Urine MDMA Screen (NEGATIVE) U Benzodiazepines Scrn (NEGATIVE) U Cocaine Metab Screen (NEGATIVE) U Marijuana (THC) Screen (NEGATIVE) SARS CoV-2 RNA Rapid CARLOS ALBERTO Negative (NEGATIVE) 12/14/20 12/14/20 12/14/20 Range/Units 12:50 12:50 17:15 WBC (4.0-10.0) x10^3/uL RBC (4.5-6.0) x10^6/uL Hgb (14.0-18.0) g/dL Hct (40.0-52.0) % MCV (78.0-93.0) fL MCH (26.0-32.0) pg MCHC (32.0-36.0) g/dL RDW Coeff of [place] (10.0-15.0) % Plt Count (130-400) x10^3/uL Neut % (Auto) (50.0-80.0) % Lymph % (Auto) (25.0-50.0) % [place] % (Auto) (2.0-11.0) % Eos % (Auto) (0.0-4.0) % Baso % (Auto) (0.2-1.2) % Sodium (136-145) mmol/L Potassium (3.5-5.1) mmol/L Chloride (98-107) mmol/L Carbon Dioxide (21-32) mmol/L Anion Gap (5-15) mmol/L BUN (7-18) mg/dL Creatinine (0.70-1.30) mg/dL Est Cr Clr Drug Dosing mL/min Estimated GFR (MDRD) Glucose (74-106) mg/dL POC Glucose 99 (74-106) mg/dL Lactic Acid (0.4-2.0) mmol/L Calcium (8.5-10.1) mg/dL Corrected Calcium (8.5-10.1) mg/dL Total Bilirubin (0.2-1.0) mg/dL AST (15-37) U/L ALT (16-63) U/L Alkaline Phosphatase (46-116) U/L Troponin I High Sens (<=76) ng/L Total Protein (6.4-8.2) g/dL Albumin (3.4-5.0) g/dL Globulin Albumin/Globulin Ratio Urine Color Light yellow (YELLOW) Urine Appearance Clear (CLEAR) Urine pH 5.0 (5.0-8.0) Ur Specific [place] 1.020 Urine Protein Negative (NEGATIVE) mg/dL Urine Glucose (UA) Negative (NEGATIVE) mg/dL Urine Ketones Negative (NEGATIVE) mg/dL Urine Occult Blood Trace-intact H (NEGATIVE) Urine Nitrite Negative (NEGATIVE) Urine Bilirubin Negative (NEGATIVE) Urine Urobilinogen 0.2 (0.2) EU/dL Ur Leukocyte Esterase Negative (NEGATIVE) U Hyaline Cast (Auto) Few Urine RBC 0-5 (NOT SEEN) /HPF Urine WBC 0-5 (NOT SEEN) /HPF Ur Squamous Epith Cells Rare (NOT SEEN) /HPF Amorphous Sediment Few Urine Bacteria Not seen (NOT SEEN) /HPF Urine Mucus Not seen (NOT SEEN) /LPF Urine Opiates Screen Negative (NEAGTIVE) Ur Buprenorphine Scrn Negative (NEGATIVE) Ur Oxycodone Screen Negative (NEGATIVE) Ur EDDP (Meth Metab) Negative (NEGATIVE) Urine Methadone Screen Negative (NEGATIVE) Ur Barbiturates Screen Negative (NEGATIVE) Ur Tricyclics Screen Negative (NEGATIVE) Ur Phencyclidine Scrn Negative (NEGATIVE) Ur Amphetamine Screen Negative (NEGATIVE) U Methamphetamines Scrn Negative (NEGATIVE) Urine MDMA Screen Negative (NEGATIVE) U Benzodiazepines Scrn Negative (NEGATIVE) U Cocaine Metab Screen Negative (NEGATIVE) U Marijuana (THC) Screen Negative (NEGATIVE) SARS CoV-2 RNA Rapid CARLOS ALBERTO (NEGATIVE) 12/14/20 12/15/20 12/15/20 Range/Units 19:38 05:54 06:22 WBC 6.2 (4.0-10.0) x10^3/uL RBC 3.70 L (4.5-6.0) x10^6/uL Hgb 11.1 L (14.0-18.0) g/dL Hct 33.8 L (40.0-52.0) % MCV 91.4 (78.0-93.0) fL MCH 30.0 (26.0-32.0) pg MCHC 32.8 (32.0-36.0) g/dL RDW Coeff of [place] 14.1 (10.0-15.0) % Plt Count 135 (130-400) x10^3/uL Neut % (Auto) 66.0 (50.0-80.0) % Lymph % (Auto) 12.6 L (25.0-50.0) % [place] % (Auto) 5.0 (2.0-11.0) % Eos % (Auto) 16.2 H (0.0-4.0) % Baso % (Auto) 0.2 (0.2-1.2) % Sodium (136-145) mmol/L Potassium (3.5-5.1) mmol/L Chloride (98-107) mmol/L Carbon Dioxide (21-32) mmol/L Anion Gap (5-15) mmol/L BUN (7-18) mg/dL Creatinine (0.70-1.30) mg/dL Est Cr Clr Drug Dosing mL/min Estimated GFR (MDRD) Glucose (74-106) mg/dL POC Glucose 155 H 110 H (74-106) mg/dL Lactic Acid (0.4-2.0) mmol/L Calcium (8.5-10.1) mg/dL Corrected Calcium (8.5-10.1) mg/dL Total Bilirubin (0.2-1.0) mg/dL AST (15-37) U/L ALT (16-63) U/L Alkaline Phosphatase (46-116) U/L Troponin I High Sens (<=76) ng/L Total Protein (6.4-8.2) g/dL Albumin (3.4-5.0) g/dL Globulin Albumin/Globulin Ratio Urine Color (YELLOW) Urine Appearance (CLEAR) Urine pH (5.0-8.0) Ur Specific [place] Urine Protein (NEGATIVE) mg/dL Urine Glucose (UA) (NEGATIVE) mg/dL Urine Ketones (NEGATIVE) mg/dL Urine Occult Blood (NEGATIVE) Urine Nitrite (NEGATIVE) Urine Bilirubin (NEGATIVE) Urine Urobilinogen (0.2) EU/dL Ur Leukocyte Esterase (NEGATIVE) U Hyaline Cast (Auto) Urine RBC (NOT SEEN) /HPF Urine WBC (NOT SEEN) /HPF Ur Squamous Epith Cells (NOT SEEN) /HPF Amorphous Sediment Urine Bacteria (NOT SEEN) /HPF Urine Mucus (NOT SEEN) /LPF Urine Opiates Screen (NEAGTIVE) Ur Buprenorphine Scrn (NEGATIVE) Ur Oxycodone Screen (NEGATIVE) Ur EDDP (Meth Metab) (NEGATIVE) Urine Methadone Screen (NEGATIVE) Ur Barbiturates Screen (NEGATIVE) Ur Tricyclics Screen (NEGATIVE) Ur Phencyclidine Scrn (NEGATIVE) Ur Amphetamine Screen (NEGATIVE) U Methamphetamines Scrn (NEGATIVE) Urine MDMA Screen (NEGATIVE) U Benzodiazepines Scrn (NEGATIVE) U Cocaine Metab Screen (NEGATIVE) U Marijuana (THC) Screen (NEGATIVE) SARS CoV-2 RNA Rapid CARLOS ALBERTO (NEGATIVE) 12/15/20 12/15/20 12/15/20 Range/Units 06:22 06:22 06:22 WBC (4.0-10.0) x10^3/uL RBC (4.5-6.0) x10^6/uL Hgb (14.0-18.0) g/dL Hct (40.0-52.0) % MCV (78.0-93.0) fL MCH (26.0-32.0) pg MCHC (32.0-36.0) g/dL RDW Coeff of [place] (10.0-15.0) % Plt Count (130-400) x10^3/uL Neut % (Auto) (50.0-80.0) % Lymph % (Auto) (25.0-50.0) % [place] % (Auto) (2.0-11.0) % Eos % (Auto) (0.0-4.0) % Baso % (Auto) (0.2-1.2) % Sodium 141 (136-145) mmol/L Potassium 3.8 (3.5-5.1) mmol/L Chloride 103 (98-107) mmol/L Carbon Dioxide 33 H (21-32) mmol/L Anion Gap 8.8 (5-15) mmol/L BUN 34 H (7-18) mg/dL Creatinine 1.7 H (0.70-1.30) mg/dL Est Cr Clr Drug Dosing 37.75 mL/min Estimated GFR (MDRD) 40 Glucose 94 (74-106) mg/dL POC Glucose (74-106) mg/dL Lactic Acid 1.1 (0.4-2.0) mmol/L Calcium 8.6 (8.5-10.1) mg/dL Corrected Calcium 9.72 (8.5-10.1) mg/dL Total Bilirubin 0.3 (0.2-1.0) mg/dL AST 15 (15-37) U/L ALT 12 L (16-63) U/L Alkaline Phosphatase 84 (46-116) U/L Troponin I High Sens 34 (<=76) ng/L Total Protein 6.7 (6.4-8.2) g/dL Albumin 2.6 L (3.4-5.0) g/dL Globulin 4.1 Albumin/Globulin Ratio 0.63 Urine Color (YELLOW) Urine Appearance (CLEAR) Urine pH (5.0-8.0) Ur Specific [place] Urine Protein (NEGATIVE) mg/dL Urine Glucose (UA) (NEGATIVE) mg/dL Urine Ketones (NEGATIVE) mg/dL Urine Occult Blood (NEGATIVE) Urine Nitrite (NEGATIVE) Urine Bilirubin (NEGATIVE) Urine Urobilinogen (0.2) EU/dL Ur Leukocyte Esterase (NEGATIVE) U Hyaline Cast (Auto) Urine RBC (NOT SEEN) /HPF Urine WBC (NOT SEEN) /HPF Ur Squamous Epith Cells (NOT SEEN) /HPF Amorphous Sediment Urine Bacteria (NOT SEEN) /HPF Urine Mucus (NOT SEEN) /LPF Urine Opiates Screen (NEAGTIVE) Ur Buprenorphine Scrn (NEGATIVE) Ur Oxycodone Screen (NEGATIVE) Ur EDDP (Meth Metab) (NEGATIVE) Urine Methadone Screen (NEGATIVE) Ur Barbiturates Screen (NEGATIVE) Ur Tricyclics Screen (NEGATIVE) Ur Phencyclidine Scrn (NEGATIVE) Ur Amphetamine Screen (NEGATIVE) U Methamphetamines Scrn (NEGATIVE) Urine MDMA Screen (NEGATIVE) U Benzodiazepines Scrn (NEGATIVE) U Cocaine Metab Screen (NEGATIVE) U Marijuana (THC) Screen (NEGATIVE) SARS CoV-2 RNA Rapid CARLOS ALBERTO (NEGATIVE) Result Diagrams: 12/15/20 06:22 12/15/20 06:22 Sepsis Event Note - Evaluation Sepsis Screening Result: No Definite Risk - Focused Exam Vital Signs: Vital Signs Temp Pulse Resp BP BP Pulse Ox Pulse Ox 12/15/20 07:56 98/55 L 12/15/20 07:55 98/55 L 12/15/20 06:39 94 L 12/15/20 06:38 36.1 C 58 L 16 98/47 L 85 L 12/15/20 01:42 36.4 C 60 16 96/44 L 93 L 12/14/20 22:00 36.8 C 59 L 18 109/40 L 90 L - Problem List Review Problem List Initiated/Reviewed/Updated: Yes - Plan Plan:: PT will see the patient today. Dietary is working with the patient on a plan for his insulin usage based on his carb intake. Will hold his metoprolol. His blood pressure remains somewhat low in the high 80s-low 90s systolic. Increase zoloft to 150mg/day. He has been feeling more depressed since the surgery, a common symptom after an invasive surgery. Anticipate discharge tomorrow. We will have social work evaluate the patient. I am concerned about his ability to go home custodial and am concerned he may require custodial care if he has problems post discharge.
[2020-12-15] MEDS ORDERED: Sertraline 50 MG Tab PO ONE (09:45)
[2020-12-15] MEDS: metFORMIN 500 MG Tab PO SCH (18:34)
[2020-12-15] MEDS: Enoxaparin 30 MG/0.3 ML Syringe SUBCUT SCH (20:03)
[2020-12-16] MEDS ORDERED: Sertraline 50 MG Tab PO SCH (08:00)
[2020-12-16] MEDS: Metoprolol Succinate 50 MG Tab.ER PO SCH (08:36)
[2020-12-16] MEDS: metFORMIN 500 MG Tab PO SCH (08:38)
[2020-12-16] MEDS: Hydrochlorothiazide 25 MG Tab PO SCH (08:38)
[2020-12-16] MEDS: Aspirin 81 MG Tab.EC PO SCH (08:38)
[2020-12-16] MEDS: buPROPion 150 MG Tab.ER PO SCH (08:38)
[2020-12-16] MEDS: amLODIPine 5 MG Tab PO SCH (08:39)
[2020-12-16] MEDS: Amiodarone 200 MG Tab PO SCH (08:39)
[2020-12-16] MEDS: Insulin Lispro 100 Units/ML 3 ML Vial SUBCUT SCH (08:39)
[2020-12-16] MEDS: Pantoprazole 40 MG Tab.CR PO SCH (08:39)
--- NOTE | 2020-12-16 10:05 | PCM.DCSUM1 ---
Discharge Summary - Hospital Course Free Text/Narrative:: Pt. did well overnight. His Lantus was held yesterday. Blood sugar this AM was 118mg/dl. His appetite has been poor during his admission. He did work with PT yesterday, and was able to ambulate without difficulty. Pt. zoloft was increased to 150mg/day. His Toprol XL has also been held due to consistently low blood pressure. He has been in the 110-130 over 50-60 range last evening and today. He has been afebrile. He is much more alert and interactive according to and nursing staff. Plan is to discharge the patient this AM. Diagnosis: Stroke: No - Discharge Data Discharge Date: 12/16/20 Discharge Disposition: Home, Self-Care 01 Condition: Good - Referral to Home Health Primary Care Physician: Adelaide Mcdaniel, DO - Discharge Diagnosis/Problem(s) (1) Dehydration SNOMED Code(s): 25338463 ICD Code: E86.0 - DEHYDRATION Status: Acute Priority: High Current Visit: Yes (2) Hypoglycemia SNOMED Code(s): 889104267 ICD Code: E16.2 - HYPOGLYCEMIA, UNSPECIFIED Status: Acute Priority: High Current Visit: Yes (3) Diabetes mellitus SNOMED Code(s): 70403809 ICD Code: E11.9 - TYPE 2 DIABETES MELLITUS WITHOUT COMPLICATIONS Status: Acute Priority: Medium Current Visit: No Problem Details: Blood sugars under better control. Will check blood sugars next week during follow up appointment. Patient may need changes with meds for better glycemic control. Qualifiers: Diabetes mellitus type: type 2 Diabetes mellitus rope maker insulin use: with care home use Diabetes mellitus complication status: without complication Qualified Code(s): E11.9 - Type 2 diabetes mellitus without complications; Z79.4 - longterm (current) use of insulin - Patient Summary/Data Consults: Consultations 12/14/20 10:51 OT Evaluation and Treatment [CONS] Routine 12/15/20 13:12 PT Evaluation and Treatment [CONS] Routine - Discharge Plan *PRESCRIPTION DRUG MONITORING PROGRAM REVIEWED*: No *COPY OF PRESCRIPTION DRUG MONITORING REPORT IN PATIENT CLARE: No Prescriptions/Med Rec: Ondansetron [Zofran ODT] 4 mg PO Q4H PRN #20 tab.dis PRN Reason: nausea, able to take PO Sertraline [Zoloft] 150 mg PO DAILY #90 tablet Home Medications: Home Meds Aspirin [Ecotrin EC] 81 mg PO DAILY 11/05/16 [History] Calcium Carbonate [Calcium] 600 mg PO DAILY 11/05/16 [History] Hydrochlorothiazide 25 mg PO DAILY 11/05/16 [History] [place]-3 Fatty Acids [Maxepa] 1,000 mg PO WITHDINNER 11/05/16 [History] Sertraline [Zoloft] 100 mg PO DAILY 11/05/16 [History] amLODIPine [Norvasc] 5 mg PO DAILY 11/05/16 [History] Albuterol [Proair HFA] 2 puff INH Q4HR PRN 01/11/18 [History] Insulin Glargine,Hum.Rec.Anlog [Basaglar Kwikpen U-100] 30 unit SQ DAILY MDD pt has been titrating up 01/11/18 [History] glipiZIDE [Glucotrol] 10 mg PO BIDAC 01/11/18 [History] metFORMIN HCl [Glucophage] 1,000 mg PO BID 01/11/18 [History] HYDROmorphone [Dilaudid] 4 mg PO Q6H PRN 04/06/20 [History] Amiodarone [Cordarone] 400 mg PO DAILY 12/13/20 [History] Magnesium Oxide [Magnesium] 400 mg PO DAILY 12/13/20 [History] Pantoprazole Sodium [Protonix] 40 mg PO DAILY 12/13/20 [History] Pravastatin Sodium 10 mg PO DAILY 12/13/20 [History] oxyCODONE HCl/Acetaminophen [Oxycodone-Acetaminophen 5-325] 5 - 325 mg PO Q4HR PRN 12/13/20 [History] buPROPion HCL [Bupropion Xl] 150 mg PO DAILY 12/14/20 [History] Acetaminophen [Tylenol] 650 mg PO Q4H PRN tablet 12/16/20 [Rx] Aspirin [Halfprin] 81 mg PO DAILY tab.ec 12/16/20 [Rx] Insulin Lispro [HumaLOG] 0 unit SUBCUT 0800,1200,1730 vial 12/16/20 [Rx] Ondansetron [Zofran ODT] 4 mg PO Q4H PRN #20 tab.dis 12/16/20 [Rx] Sertraline [Zoloft] 150 mg PO DAILY #90 tablet 12/16/20 [Rx] buPROPion [buPROPion XL] 150 mg PO DAILY tab.er 12/16/20 [Rx] Patient Handouts: Hypoglycemia, [id number] Forms: ED Department Discharge Referrals: Adelaide Mcdaniel DO [Primary Care Provider] - - Discharge Summary/Plan Comment DC Time >30 min.: Yes Discharge Summary/Plan Comment: Home to rest. Recheck in clinic in 7-10 days. Check blood sugar at meal time and especially at bedtime. He should not take any humalog if he is not eating. Continue with all other medications. He was given a script for higher dose zoloft as well as a script for zofran ODT. - General Info Date of Service: 12/16/20 Functional Status: Reports: Pain Controlled - Review of Systems General: Reports: No Symptoms HEENT: Reports: No Symptoms Pulmonary: Reports: No Symptoms Cardiovascular: Reports: No Symptoms Gastrointestinal: Reports: Decreased Appetite Genitourinary: Reports: No Symptoms Musculoskeletal: Reports: No Symptoms Skin: Reports: No Symptoms Neurological: Reports: No Symptoms Psychiatric: Reports: No Symptoms - Patient Data Vitals - Most Recent: Last Vital Signs Temp 36.8 C 12/16/20 06:00 Pulse 61 12/16/20 08:36 Resp 17 12/16/20 06:00 BP 120/53 L 12/16/20 08:39 Pulse Ox 95 12/16/20 06:00 Weight - Most Recent: 64.552 kg I&O - Last 24 hours: Intake & Output 12/15/20 12/16/20 12/16/20 22:59 06:59 14:59 Intake Total 520 1100 Output Total 800 Balance 520 300 Lab Results - Last 24 hrs: Laboratory Results - last 24 hr 12/15/20 12/15/20 12/15/20 Range/Units 06:22 11:20 17:28 POC Glucose 130 H 200 H (74-106) mg/dL Vitamin B12 211 (180-914) pg/mL 12/15/20 12/15/20 12/16/20 Range/Units 18:34 20:02 06:20 POC Glucose 219 H 174 H 118 H (74-106) mg/dL Vitamin B12 (180-914) pg/mL FLORIN Results - Last 24 hrs: Microbiology 12/14/20 12:50 Aerobic Blood Culture - Preliminary Blood - Venous - Lab Draw NO GROWTH AFTER 1 DAY Anaerobic Blood Culture - Preliminary NO GROWTH AFTER 1 DAY 12/14/20 12:45 Aerobic Blood Culture - Preliminary Blood - Venous NO GROWTH AFTER 1 DAY Anaerobic Blood Culture - Preliminary NO GROWTH AFTER 1 DAY Med Orders - Current: Current Medications Acetaminophen (Acetaminophen 325 Mg Tab) 650 mg PO Q4H PRN PRN Reason: Pain (Mild 1-3)/fever Albuterol (Albuterol Hfa 18 Gm Inhaler) 0 gm INH Q4HR PRN PRN Reason: Wheezing Amiodarone HCl (Amiodarone 200 Mg Tab) 400 mg PO DAILY [facility] Last Admin: 12/16/20 08:39 Dose: 400 mg Documented by: Amlodipine Besylate (Amlodipine 5 Mg Tab) 5 mg PO DAILY [facility] Last Admin: 12/16/20 08:39 Dose: 5 mg Documented by: Aspirin (Aspirin 81 Mg Tab.Ec) 81 mg PO DAILY [facility] Last Admin: 12/16/20 08:38 Dose: 81 mg Documented by: Bupropion HCl (Bupropion 150 Mg Tab.Er) 150 mg PO DAILY [facility] Last Admin: 12/16/20 08:38 Dose: 150 mg Documented by: Dextrose/Water (50% Dextrose In Water 50 Ml Syringe) 50 ml IV ASDIRECTED PRN PRN Reason: Hypoglycemia Enoxaparin Sodium (Enoxaparin 30 Mg/0.3 Ml Syringe) 30 mg SUBCUT BEDTIME [facility] Last Admin: 12/15/20 20:03 Dose: 30 mg Documented by: Glucagon (Glucagon,Human Recombinant 1 Mg Vial) 1 mg IM ASDIRECTED PRN PRN Reason: Hypoglycemia Hydrochlorothiazide (Hydrochlorothiazide 25 Mg Tab) 25 mg PO DAILY [facility] Last Admin: 12/16/20 08:38 Dose: 25 mg Documented by: Hydromorphone HCl (Hydromorphone 2 Mg Tab) 4 mg PO Q6H PRN PRN Reason: Pain Lactated Ringer's (Ringers, Lactated) 1,000 mls @ 75 mls/hr IV ASDIRECTED [facility] Last Admin: 12/15/20 23:36 Dose: 75 mls/hr Documented by: Insulin Human Lispro (Insulin Lispro 100 Units/Ml 3 Ml Vial) 0 unit SUBCUT 0800,1200,1730,2000 [facility]; Protocol Last Admin: 12/16/20 08:39 Dose: Not Given Documented by: Metformin HCl (Metformin 500 Mg Tab) 1,000 mg PO BIDMEALS [facility] Last Admin: 12/16/20 08:38 Dose: 1,000 mg Documented by: Metoprolol Succinate (Metoprolol Succinate 50 Mg Tab.Er) 100 mg PO DAILY [facility] Last Admin: 12/16/20 08:36 Dose: 100 mg Documented by: Ondansetron HCl (Ondansetron 4 Mg Tab.Dis) 4 mg PO Q4H PRN PRN Reason: nausea, able to take PO Last Admin: 12/15/20 07:52 Dose: 4 mg Documented by: Pantoprazole Sodium (Pantoprazole 40 Mg Tab.Cr) 40 mg PO DAILY [facility] Last Admin: 12/16/20 08:39 Dose: 40 mg Documented by: Sertraline HCl (Sertraline 50 Mg Tab) 150 mg PO DAILY [facility] Last Admin: 12/16/20 08:36 Dose: 150 mg Documented by: Simvastatin (Simvastatin 10 Mg Tab) 5 mg PO BEDTIME [facility] Last Admin: 12/15/20 20:04 Dose: 5 mg Documented by: Sodium Chloride (Sodium Chloride 0.9% 10 Ml Syringe) 10 ml FLUSH ASDIRECTED PRN PRN Reason: Keep Vein Open Discontinued Medications Dextrose/Lactated Ringer's (Dextrose 5%-Lactated Ringers) 1,000 mls @ 250 mls/hr IV ASDIRECTED [facility] Last Admin: 12/14/20 06:40 Dose: 250 mls/hr Documented by: Insulin Human Lispro (Insulin Lispro 100 Units/Ml 3 Ml Vial) 0 unit SUBCUT QID [facility]; Protocol Last Admin: 12/14/20 12:06 Dose: Not Given Documented by: Sertraline HCl (Sertraline 100 Mg Tab) 100 mg PO DAILY [facility] Last Admin: 12/15/20 07:52 Dose: 100 mg Documented by: Sertraline HCl (Sertraline 50 Mg Tab) 50 mg PO ONETIME ONE Stop: 12/15/20 09:46 Last Admin: 12/15/20 10:06 Dose: 50 mg Documented by: - Exam General: Reports: Alert, Oriented HEENT: Reports: Pupils Equal, Pupils Reactive, EOMI, Mucous Membr. Moist/[place] Neck: Reports: Supple Lungs: Reports: Clear to Auscultation, Normal Respiratory Effort Cardiovascular: Reports: Regular Rate, Regular Rhythm GI/Abdominal Exam: Normal Bowel Sounds, Soft, Non-Tender, No Organomegaly, No Distention (Male) Exam: Deferred Back Exam: Reports: Normal Inspection Extremities: Normal Inspection, Normal Range of Motion, Non-Tender, No Pedal Edema, Normal Capillary Refill Skin: Reports: Warm, Dry, Intact Neurological: Reports: No New Focal Deficit Psy/Mental Status: Reports: Alert, Normal Affect, Normal Mood
[2020-12-16 10:08] VITALS: BP 112/52; PULSE 64
== END 2020-12-16 10:35 | disposition home or self-care (01) ==
LOC: VM.ED 06:17 → VM.MS 09:24 → UNDOADMOB 09:27
PROVIDERS: ADMIT Physician Assistant Medical; ATTEND Physician Assistant Medical
DX: E16.2 Hypoglycemia, unspecified (principal); E86.0 Dehydration; E11.9 Type 2 diabetes mellitus without complications; E78.00 Pure hypercholesterolemia, unspecified; I10 Essential (primary) hypertension; I25.10 Atherosclerotic heart disease of native coronary artery without angina pectoris; J44.9 Chronic obstructive pulmonary disease, unspecified; E66.9 Obesity, unspecified; Z01.812 Encounter for preprocedural laboratory examination; Z20.822 Contact with and (suspected) exposure to COVID-19; Z79.82 Long term (current) use of aspirin; Z79.4 Long term (current) use of insulin; Z79.899 Other long term (current) drug therapy; Z88.8 Allergy status to other drugs, medicaments and biological substances; Z88.2 Allergy status to sulfonamides; Z91.018 Allergy to other foods; Z95.5 Presence of coronary angioplasty implant and graft
CPT/HCPCS: 36415; 51701; 70450; 71045; 72125; 80048; 80053; 80305-QW; 81001; 82607; 82962; 83605; 83735; 84484; 85025; 87040; 93005; 93010; 96360; 96361; 96372; 97129-GO; 97130-GO; 97161-GP; 99217; 99220; 99225; 99285-25; A9270-GY; G0378; J1650; J7120; J7121; U0002

== ENCOUNTER 2021-02-15 11:11 | Emergency (ER) | payer MEDICARE, OTHER ==
[2021-02-15] MEDS ORDERED: Sodium Chloride 0.9% 10 ML Syringe FLUSH PRN (11:34)
[2021-02-15] MEDS ORDERED: Lactated Ringers 1,000 ML IV ONE (11:36)
--- NOTE | 2021-02-15 11:47 | EDM.PDOC ---
ED HPI GENERAL MEDICAL PROBLEM - General Chief Complaint: General Stated Complaint: WEEKNESS, SOB Time Seen by Provider: 02/15/21 11:15 Source of Information: Reports: Patient History Limitations: Reports: No Limitations - History of Present Illness INITIAL COMMENTS - FREE TEXT/NARRATIVE: Patient comes to the emergency department today from the clinic for further evaluation of weight loss and generalized weakness. This patient had a three- vessel coronary artery bypass graft in October. Since that time he relates that he has had little to no appetite. Nothing tastes good. He is unable to eat. He barely drinks any water. This has been going on for the past 3 months. He has been seen at the [facility] and had multiple laboratory evaluation without any guidance. Today he went to the [facility] to be evaluated for his 3 months of 30 pound weight loss generalized malaise fatigue and generalized weakness. They noted that his oxygen saturation was in the low 80s and his blood pressure was unstable so he was emergently brought over to the emergency department. Upon arrival the patient is alert and appropriate. His oxygen saturation is 93% on room air and is vitals are stable. He gives a very similar story of just generalized weakness over the past 3 months. He does not eat he does not drink. He has fallen multiple times. He has not hit his head. He has no loss conscious. He has no head neck or back pain. He denies any fever or chills. He did get his first dose of covid vaccine. He did not receive his second because he was too weak to go to the clinic. He has some intermittent nausea and vomiting. He has never had an EGD. He has no abdominal pain. No hematuria dysuria or urinary frequency. He denies any other surgeries to his abdomen. No black or tarry stools. No diarrhea. No constipation. The patient reports that he has had multiple visits at the clinic for evaluation of his lack of eating and weight loss and has had labs drawn and nothing else. Past medical history. CAD (coronary artery disease) COPD (chronic obstructive pulmonary disease) (HCC) Diabetes mellitus, type 2 (HCC) HTN (hypertension) Hyperlipidemia Hypertension, essential 06/18/2010 [facility] (current) use of opiate analgesic 09/25/2020 Treatment Agreement Osteoarthritis Rheumatoid arthritis(714.0) - Related Data Allergies Allergy/AdvReac Type Severity Reaction Status Date / Time duloxetine [From Cymbalta] Allergy Other Verified 02/15/21 11:36 Rseixmo-Vap-Osp Reductase Allergy Muscle Verified 02/15/21 11:36 Inhibitor Aches Sulfa (Sulfonamide Allergy Hives Verified 02/15/21 11:36 Antibiotics) sulfamethoxazole Allergy Hives Verified 02/15/21 11:36 [From Bactrim] trimethoprim [From Bactrim] Allergy Hives Verified 02/15/21 11:36 ezetimibe [From Zetia] AdvReac Nausea Verified 02/15/21 11:36 horseradish AdvReac Diarrhea Verified 02/15/21 11:36 losartan AdvReac Dizziness Verified 02/15/21 11:36 rosuvastatin [From Crestor] AdvReac Muscle Verified 02/15/21 11:36 Aches Home Meds: Home Meds Aspirin [Ecotrin EC] 81 mg PO DAILY 11/05/16 [History] Calcium Carbonate [Calcium] 600 mg PO DAILY 11/05/16 [History] Hydrochlorothiazide 25 mg PO DAILY 11/05/16 [History] [place]-3 Fatty Acids [Maxepa] 1,000 mg PO WITHDINNER 11/05/16 [History] Sertraline [Zoloft] 200 mg PO DAILY 11/05/16 [History] amLODIPine [Norvasc] 5 mg PO DAILY 11/05/16 [History] Albuterol [Proair HFA] 2 puff INH Q4HR PRN 01/11/18 [History] glipiZIDE [Glucotrol] 10 mg PO BIDAC 01/11/18 [History] metFORMIN HCl [Glucophage] 1,000 mg PO BID 01/11/18 [History] Amiodarone [Cordarone] 400 mg PO DAILY 12/13/20 [History] Magnesium Oxide [Magnesium] 400 mg PO DAILY 12/13/20 [History] Pantoprazole Sodium [Protonix] 40 mg PO DAILY 12/13/20 [History] Pravastatin Sodium 10 mg PO DAILY 12/13/20 [History] buPROPion HCL [Bupropion Xl] 150 mg PO DAILY 12/14/20 [History] Acetaminophen [Tylenol] 650 mg PO Q4H PRN tablet 12/16/20 [Rx] Ondansetron [Zofran ODT] 4 mg PO Q4H PRN #20 tab.dis 12/16/20 [Rx] HYDROmorphone HCl [Hydromorphone HCl] 4 mg PO Q6H PRN 12/25/20 [History] Metoprolol Succinate [Toprol XL 100mg] 100 mg PO DAILY 12/25/20 [History] Past Medical History HEENT History: Reports: Impaired Vision Cardiovascular History: Reports: CAD, High Cholesterol, Hypertension, Stents Respiratory History: Reports: COPD Gastrointestinal History: Reports: Other (See Below) Other Gastrointestinal History: obesity Musculoskeletal History: Reports: Arthritis, Osteoarthritis, Other (See Below) Other Musculoskeletal History: Genralized arthritis Neurological History: Reports: Concussion, Other (See Below) Psychiatric History: Reports: Depression Endocrine/Metabolic History: Reports: Diabetes, Type II Immunologic History: Reports: Other (See Below) - Infectious Disease History Infectious Disease History: Reports: Chicken Pox, Measles - Past Surgical History Cardiovascular Surgical History: Reports: Coronary Artery Stent, Other (See Below) GI Surgical History: Reports: None Musculoskeletal Surgical History: Reports: Arthroscopic Knee, Hip Replacement Other Musculoskeletal Surgeries/Procedures:: left knee in the - History Comment History Comment: right cartoid endarterectomy. right hip replacment. 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 ED EXAM, GENERAL - Physical Exam Exam: See Below Exam Limited By: No Limitations General Appearance: Alert, No Apparent Distress, Cachetic Eye Exam: Bilateral Eye: EOMI, PERRL Ears: Normal External Exam Nose: Normal Inspection Throat/Mouth: No: Normal Inspection (oral mucosa is very dry. ) Head: Atraumatic, Normocephalic Neck: Normal Inspection, Supple, Non-Tender, Full Range of Motion Respiratory/Chest: No Respiratory Distress, No Accessory Muscle Use, Chest Non- Tender, Wheezing (faint expiratory wheezing bilaterally. ). No: Crackles, Rales, Rhonchi, Accessory Muscle Use, Retractions Cardiovascular: Normal Peripheral Pulses, Regular Rate, Rhythm, No Murmur Peripheral Pulses: 2+: Radial (L), Radial (R), Posterior Tibial (L), Posterior Tibial (R), Dorsalis Pedis (L), Dorsalis Pedis (R) GI/Abdominal: Normal Bowel Sounds, Soft, Tender (tenderness in the epigastric with guarding no rebound. ), Other (His abdomen is quite concave. ) (Male) Exam: Deferred Rectal (Males) Exam: Deferred Back Exam: Normal Inspection, Full Range of Motion Extremities: Normal Inspection, Normal Range of Motion, No Pedal Edema, Normal Capillary Refill Neurological: Alert, Oriented, CN II-XII Intact, Normal Cognition, Normal Gait, No Motor/Sensory Deficits Psychiatric: Normal Affect, Normal Mood Skin Exam: Dry, Intact, No Rash, Pallor Lymphatic: No Adenopathy Course - Vital Signs Last Recorded V/S: Last Vital Signs Temp 97.3 F 02/15/21 11:11 Pulse 78 02/15/21 12:37 Resp 14 02/15/21 12:37 BP 125/64 02/15/21 12:37 Pulse Ox 97 02/15/21 12:37 - Orders/Labs/Meds Orders: Active Orders 24 hr Category Date Time Status EKG Documentation Completion [RC] STAT Care 02/15/21 11:35 Active LACTIC ACID [CHEM] Routine Lab 02/15/21 15:25 Ordered Lactated Ringers [Ringers, Lactated] 1,000 ml Med 02/15/21 11:36 Active IV ONETIME Sodium Chloride 0.9% [Saline Flush] Med 02/15/21 11:34 Active 10 ml FLUSH ASDIRECTED PRN Peripheral IV Insertion Adult [OM.PC] Stat Oth 02/15/21 11:34 Ordered Medication Orders Lactated Ringer's (Ringers, Lactated) 1,000 mls @ 150 mls/hr IV ONETIME ONE Stop: 02/15/21 18:15 Last Admin: 02/15/21 12:03 Dose: 150 mls/hr Documented by: ENEIDA Sodium Chloride (Sodium Chloride 0.9% 10 Ml Syringe) 10 ml FLUSH ASDIRECTED PRN PRN Reason: Keep Vein Open Labs: Laboratory Tests 06/03/21 06/03/21 06/03/21 Range/Units 11:55 11:55 11:55 WBC 5.5 (4.0-10.0) x10^3/uL RBC 4.10 L (4.5-6.0) x10^6/uL Hgb 12.3 L (14.0-18.0) g/dL Hct 37.1 L (40.0-52.0) % MCV 90.5 (78.0-93.0) fL MCH 30.0 (26.0-32.0) pg MCHC 33.2 (32.0-36.0) g/dL RDW Coeff of Vijay 15.6 H (10.0-15.0) % Plt Count 132 (130-400) x10^3/uL Neut % (Auto) 86.7 H (50.0-80.0) % Lymph % (Auto) 7.1 L (25.0-50.0) % Frio % (Auto) 4.9 (2.0-11.0) % Eos % (Auto) 1.3 (0.0-4.0) % Baso % (Auto) 0.0 L (0.2-1.2) % Sodium 137 (136-145) mmol/L Potassium 4.8 (3.5-5.1) mmol/L Chloride 97 L (98-107) mmol/L Carbon Dioxide 28 (21-32) mmol/L Anion Gap 16.8 H (5-15) mmol/L BUN 39 H (7-18) mg/dL Creatinine 2.3 H (0.70-1.30) mg/dL Est Cr Clr Drug Dosing TNP Estimated GFR (MDRD) 29 Glucose 190 H (70-99) mg/dL Lactic Acid 2.3 H* (0.4-2.0) mmol/L Calcium 9.3 (8.5-10.1) mg/dL Corrected Calcium 9.9 (8.5-10.1) mg/dL Magnesium 1.9 (1.8-2.4) mg/dL Total Bilirubin 0.4 (0.2-1.0) mg/dL AST 46 H (15-37) U/L ALT 49 (16-63) U/L Alkaline Phosphatase 86 (46-116) U/L Troponin I High Sens 17 (<=76) ng/L Total Protein 7.6 (6.4-8.2) g/dL Albumin 3.2 L (3.4-5.0) g/dL Globulin 4.4 Albumin/Globulin Ratio 0.73 Lipase 109 (73-393) U/L Urine Color (YELLOW) Urine Appearance (CLEAR) Urine pH (5.0-8.0) Ur Specific [place] Urine Protein (NEGATIVE) mg/dL Urine Glucose (UA) (NEGATIVE) mg/dL Urine Ketones (NEGATIVE) mg/dL Urine Occult Blood (NEGATIVE) Urine Nitrite (NEGATIVE) Urine Bilirubin (NEGATIVE) Urine Urobilinogen (0.2) EU/dL Ur Leukocyte Esterase (NEGATIVE) SARS-CoV-2 RNA (CARLOS ALBERTO) (NEGATIVE) 02/15/21 02/15/21 Range/Units 12:04 14:47 WBC (4.0-10.0) x10^3/uL RBC (4.5-6.0) x10^6/uL Hgb (14.0-18.0) g/dL Hct (40.0-52.0) % MCV (78.0-93.0) fL MCH (26.0-32.0) pg MCHC (32.0-36.0) g/dL RDW Coeff of Vijay (10.0-15.0) % Plt Count (130-400) x10^3/uL Neut % (Auto) (50.0-80.0) % Lymph % (Auto) (25.0-50.0) % Frio % (Auto) (2.0-11.0) % Eos % (Auto) (0.0-4.0) % Baso % (Auto) (0.2-1.2) % Sodium (136-145) mmol/L Potassium (3.5-5.1) mmol/L Chloride (98-107) mmol/L Carbon Dioxide (21-32) mmol/L Anion Gap (5-15) mmol/L BUN (7-18) mg/dL Creatinine (0.70-1.30) mg/dL Est Cr Clr Drug Dosing Estimated GFR (MDRD) Glucose (70-99) mg/dL Lactic Acid (0.4-2.0) mmol/L Calcium (8.5-10.1) mg/dL Corrected Calcium (8.5-10.1) mg/dL Magnesium (1.8-2.4) mg/dL Total Bilirubin (0.2-1.0) mg/dL AST (15-37) U/L ALT (16-63) U/L Alkaline Phosphatase (46-116) U/L Troponin I High Sens (<=76) ng/L Total Protein (6.4-8.2) g/dL Albumin (3.4-5.0) g/dL Globulin Albumin/Globulin Ratio Lipase (73-393) U/L Urine Color Dark yellow H (YELLOW) Urine Appearance Clear (CLEAR) Urine pH 5.5 (5.0-8.0) Ur Specific [place] 1.020 Urine Protein Negative (NEGATIVE) mg/dL Urine Glucose (UA) Negative (NEGATIVE) mg/dL Urine Ketones Negative (NEGATIVE) mg/dL Urine Occult Blood Negative (NEGATIVE) Urine Nitrite Negative (NEGATIVE) Urine Bilirubin Negative (NEGATIVE) Urine Urobilinogen 0.2 (0.2) EU/dL Ur Leukocyte Esterase Negative (NEGATIVE) SARS-CoV-2 RNA (CARLOS ALBERTO) Negative (NEGATIVE) Meds: Medications Generic Name Dose Route Start Last Admin Trade Name Freq PRN Reason Stop Dose Admin Lactated Ringer's 1,000 mls @ 150 mls/hr 02/15/21 11:36 02/15/21 12:03 Ringers, Lactated IV 02/15/21 18:15 150 mls/hr ONETIME ONE Administration Sodium Chloride 10 ml 02/15/21 11:34 Sodium Chloride 0.9% 10 Ml Syringe FLUSH ASDIRECTED PRN Keep Vein Open - Radiology Interpretation Free Text/Narrative:: Chest x-ray per radiology bilateral symmetrical lung hyperinflation. Findings are consistent with parenchymal emphysema in the setting of COPD. CT abdomen pelvis without contrast due to the patient's elevated creatinine with a possible cholelithiasis without evidence of acute cholecystitis. Mild bladder wall thickening could relate to underlying cystitis or chronic outlet obstruction and similar to the previous study. - Re-Assessments/Exams Free Text/Narrative Re-Assessment/Exam: 02/15/21 11:54 I did review the patient's chart in his [facility] and I do not see any visits in the clinic for his concerns of weight loss in the past couple of months. He has had multiple visits for rechecks following his status post CABG. He had some labs that were supposed to be drawn last month that were not completed as they were not drawn. 02/15/21 15:28 The patient initially was given a LR bolus of 500 mils and then 150 an hour. Really his laboratory evaluation is rather unremarkable. He is kidney function looks about to be at baseline of 2.0 he is at 2.3 today with a BUN of 39. Urinalysis is negative. His troponin magnesium and electrolytes are rather unremarkable as well. The CT of his abdomen and pelvis are concerning for the possibility of sludge in the gallbladder but no other acute process. I am not finding anything urgent or emergent at this time causing his symptoms of generalized weakness weight loss that has been going on for the past 3 months. We will discharge him home at this time as there is nothing acutely urgent or emergent identified with this work-up. He does feel better after some fluid hydration. I did talk with him about discussion of an upper GI swallow study gallbladder ultrasound for evaluation of his symptoms. He really needs to drink small frequent drinks of water and then also small frequent meals. His relates that he has had quite a bit of change in his taste ever since he had his open heart surgery and really does not like anything that he has to eat in one of the main reasons why he does not eat. He does feel hungry. We will discharge him with close follow-up in the clinic. Anything new or worse recheck. He is comfortable with this plan his questions are answered. Departure - Departure Time of Disposition: 14:13 Disposition: Home, Self-Care 01 Clinical Impression: Dehydration, Unintended weight loss, Weakness CKD (chronic kidney disease) Qualifiers: Chronic kidney disease stage: stage 4 (severe) Qualified Code(s): N18.4 - Chronic kidney disease, stage 4 (severe) - Discharge Information Instructions: Weakness, [id number], Dehydration, Adult, Etsk-[id number], Chronic Kidney Disease, Adult, Epvs-qi-Bvul, Dehydration, Elderly, Csfi-ag-Wlpt Referrals: Ariel Smith PA-C [Primary Care Provider] - Forms: ED Department Discharge Additional Instructions: Follow up with PCP next available. See either Meg Monique or Son at the [facility]. Consider discontinuing the Amiodarone Also consider swallow study or Upper GI to evaluate your difficulties with wanting to eat. Try to drink little sips of water regularly. And I mean like every 5 minutes drink some water. Continue with the protein Shakes also some of the liquid protein supplied from the ED. Return to the ED if new or emergent complaints. Also a gallbladder US to be ordered through the clinic for the concerns of sludge in your gallbladder. Sepsis Event Note (ED) - Evaluation Sepsis Screening Result: No Definite Risk - Focused Exam Vital Signs: Vital Signs Temp Pulse Resp BP Pulse Ox 02/15/21 12:37 78 14 125/64 97 02/15/21 11:11 97.3 F 97 16 148/69 H 96 - My Orders Last 24 Hours: My Active Orders 02/15/21 11:34 Sodium Chloride 0.9% [Saline Flush] 10 ml FLUSH ASDIRECTED PRN Peripheral IV Insertion Adult [OM.PC] Stat 02/15/21 11:35 EKG Documentation Completion [RC] STAT 02/15/21 11:36 Lactated Ringers [Ringers, Lactated] 1,000 ml IV ONETIME 02/15/21 15:25 LACTIC ACID [CHEM] Routine - Assessment/Plan Last 24 Hours: My Active Orders 02/15/21 11:34 Sodium Chloride 0.9% [Saline Flush] 10 ml FLUSH ASDIRECTED PRN Peripheral IV Insertion Adult [OM.PC] Stat 02/15/21 11:35 EKG Documentation Completion [RC] STAT 02/15/21 11:36 Lactated Ringers [Ringers, Lactated] 1,000 ml IV ONETIME 02/15/21 15:25 LACTIC ACID [CHEM] Routine
--- NOTE | 2021-02-15 12:11 | CR ---
[id number] RAD/RAD Chest PA or AP 1V EXAM: RAD Chest PA or AP 1V INDICATION: SOB COMPARISON: CT from September 2019. DISCUSSION/IMPRESSION: Mediastinal wires. Cardiomediastinal silhouette is normal in size and contour. Bilateral symmetric lung hyperinflation. Findings are consistent with parenchymal emphysema in the setting of COPD. Lungs are otherwise unremarkable. Sb Roche MD 02/15/21 1210 Thank you for allowing us to participate in the care of your patient.
--- NOTE | 2021-02-15 12:30 | PCM.EKG ---
#1 Interpretation EKG Date: 02/15/21 Time: 11:57 Rhythm: NSR Rate (Beats/Min): 73 [place]: Normal P-Wave: Present QRS: RBBB ST-T: Normal QT: Normal Comparison: No Change
[2021-02-15 12:32] LABS: ANION GAP 16.8 mmol/L (5-15); CHLORIDE,CL 97 mmol/L (98-107); SODIUM,NA 137 mmol/L (136-145)
[2021-02-15 12:38] VITALS: BP 125/64; PULSE 78
--- NOTE | 2021-02-15 13:24 | CT ---
[id number] CT/CT Abdomen Pelvis WO IV EXAM: ABDOMEN AND PELVIS CT WITHOUT CONTRAST INDICATION: Weight loss, abdominal pain, nausea and vomiting. COMPARISON: September 17, 2019. DISCUSSION: Emphysematous changes are noted in the lung bases. Coronary artery calcifications. Grade 1 degenerative L4-L5 spondylolisthesis. Spondylosis throughout the spine and degenerative changes left hip. Right hip arthroplasty. Possible cholelithiasis or layering sludge without CT evidence of acute cholecystitis. Mild bladder wall thickening could be from chronic outlet obstruction or cystitis, correlate with urinalysis. Atherosclerotic plaque throughout the aorta and its major branches with associated mild dilation of the common iliac arteries bilaterally with maximum diameter is about 18 mm. Unenhanced images of the liver, spleen, pancreas, adrenal glands, kidneys, small bowel, large on the appendix are unremarkable. No adenopathy, free air free fluid. IMPRESSION: 1. Possible cholelithiasis without CT evidence of acute cholecystitis. 2. Mild bladder wall thickening could relate to underlying cystitis or chronic outlet obstruction and is similar to the previous study. Tesfaye Oreilly MD 02/15/21 [id number] Thank you for allowing us to participate in the care of your patient.
== END 2021-02-15 15:45 | disposition home or self-care (01) ==
LOC: VM.ED 11:11
DX: I12.9 Hypertensive chronic kidney disease with stage 1 through stage 4 chronic kidney disease, or unspecified chronic kidney disease (principal); E11.22 Type 2 diabetes mellitus with diabetic chronic kidney disease; N18.4 Chronic kidney disease, stage 4 (severe); E86.0 Dehydration; I25.10 Atherosclerotic heart disease of native coronary artery without angina pectoris; J44.9 Chronic obstructive pulmonary disease, unspecified; Z20.822 Contact with and (suspected) exposure to COVID-19; R63.4 Abnormal weight loss; Z79.84 Long term (current) use of oral hypoglycemic drugs; Z88.8 Allergy status to other drugs, medicaments and biological substances; Z88.2 Allergy status to sulfonamides; Z88.1 Allergy status to other antibiotic agents; Z79.82 Long term (current) use of aspirin; Z79.899 Other long term (current) drug therapy
CPT/HCPCS: 36415; 71045; 74176; 80053; 81003; 83605; 83690; 83735; 84484; 85025; 93005; 99284; 99285-25; J7120; U0002

== ENCOUNTER 2021-03-31 08:13 | Emergency (ER) | payer MEDICARE, OTHER ==
[2021-03-31 08:32] VITALS: BP 117/95; PULSE 65
--- NOTE | 2021-03-31 09:24 | CR ---
[id number] RAD/RAD Chest PA And Lateral EXAM: FRONTAL AND LATERAL CHEST INDICATION: FELL YESTERDAY. LEFT LATERAL LOWER RIB PAIN. COMPARISON: February 15, 2021. DISCUSSION: Stable mild elevation right hemidiaphragm. Prior sternotomy. Normal heart size. No radiographically evident acute rib fracture. Mild bilateral perihilar infiltrates or edema. No pneumothorax. Possible trace right pleural fluid. IMPRESSION: 1. Mild bilateral perihilar infiltrates or edema. Tesfaye Oreilly MD 03/31/21 0922 Thank you for allowing us to participate in the care of your patient.
--- NOTE | 2021-03-31 09:25 | CR ---
[id number] RAD/RAD Pelvis 1V W 2V Left Hip EXAM: RAD Pelvis 1V W 2V Left Hip INDICATION: FELL YESTERDAY, LEFT LATERAL HIP PAIN POST FALL. COMPARISON: None. FINDINGS: Right hip arthroplasty without evident hardware complication. Moderate to advanced left hip osteoarthritis. Lower lumbar spondylosis. Surgical clips both inguinal regions. Left femoral artery stent. No acute fracture or dislocation is identified. IMPRESSION: 1. No acute findings. Tesfaye Oreilly MD 03/31/21 0924 Thank you for allowing us to participate in the care of your patient.
--- NOTE | 2021-03-31 09:48 | EDM.PDOC ---
ED HPI GENERAL MEDICAL PROBLEM - General Chief Complaint: Lower Extremity Injury/Pain Time Seen by Provider: 03/31/21 09:43 Source of Information: Reports: Patient, Family History Limitations: Reports: No Limitations - History of Present Illness INITIAL COMMENTS - FREE TEXT/NARRATIVE: Pt. states that he fell on his L side yesterday while working in his garage. Pt. complaints of L lateral rib pain and L lateral hip pain. Denies any LOC. No confusion. Pt. states that he is having trouble taking a deep breath. Pt. complains of pain on lateral aspect of L lateral hip. Denies any problems with weight bearing. He normally uses a cane to get around. Pt. denies any numbness/tingling in the distal portion of the extremities. Pt. denies any hemoptysis. No fever or chills. Denies any substernal chest disc omfort. Pt. denies any lightheadedness, palpitations or confusion. He denies striking his head. Denies any midline neck or back pain. Onset: Today Onset Date: 03/30/21 Location: Reports: Chest, Lower Extremity, Left Left Thoracic Pain Score (Numeric/FACES): 9 Left Hip Pain Score (Numeric/FACES): 9 - Related Data Allergies Allergy/AdvReac Type Severity Reaction Status Date / Time duloxetine [From Cymbalta] Allergy Other Verified 03/31/21 08:44 Labxuvv-Cac-Mtx Reductase Allergy Muscle Verified 03/31/21 08:44 Inhibitor Aches Sulfa (Sulfonamide Allergy Hives Verified 03/31/21 08:44 Antibiotics) sulfamethoxazole Allergy Hives Verified 03/31/21 08:44 [From Bactrim] trimethoprim [From Bactrim] Allergy Hives Verified 03/31/21 08:44 ezetimibe [From Zetia] AdvReac Nausea Verified 03/31/21 08:44 horseradish AdvReac Diarrhea Verified 03/31/21 08:44 losartan AdvReac Dizziness Verified 03/31/21 08:44 rosuvastatin [From Crestor] AdvReac Muscle Verified 03/31/21 08:44 Aches Home Meds: Home Meds Aspirin [Ecotrin EC] 81 mg PO DAILY 11/05/16 [History] Calcium Carbonate [Calcium] 600 mg PO DAILY 11/05/16 [History] Hydrochlorothiazide 25 mg PO DAILY 11/05/16 [History] [place]-3 Fatty Acids [Maxepa] 1,000 mg PO WITHDINNER 11/05/16 [History] Sertraline [Zoloft] 200 mg PO DAILY 11/05/16 [History] amLODIPine [Norvasc] 5 mg PO DAILY 11/05/16 [History] Albuterol [Proair HFA] 2 puff INH Q4HR PRN 01/11/18 [History] metFORMIN HCl [Glucophage] 1,000 mg PO BID 01/11/18 [History] Amiodarone [Cordarone] 200 mg PO DAILY 12/13/20 [History] Magnesium Oxide [Magnesium] 400 mg PO DAILY 12/13/20 [History] Pantoprazole Sodium [Protonix] 40 mg PO DAILY 12/13/20 [History] buPROPion HCL [Bupropion Xl] 150 mg PO DAILY 12/14/20 [History] Acetaminophen [Tylenol] 650 mg PO Q4H PRN tablet 12/16/20 [Rx] Mirtazapine 7.5 mg PO BEDTIME 03/31/21 [History] Past Medical History HEENT History: Reports: Impaired Vision Cardiovascular History: Reports: CAD, High Cholesterol, Hypertension, Stents Respiratory History: Reports: COPD Gastrointestinal History: Reports: Other (See Below) Other Gastrointestinal History: obesity Musculoskeletal History: Reports: Arthritis, Osteoarthritis, Other (See Below) Other Musculoskeletal History: Genralized arthritis Neurological History: Reports: Concussion, Other (See Below) Psychiatric History: Reports: Depression Endocrine/Metabolic History: Reports: Diabetes, Type II Immunologic History: Reports: Other (See Below) - Infectious Disease History Infectious Disease History: Reports: Chicken Pox, Measles - Past Surgical History Cardiovascular Surgical History: Reports: Coronary Artery Stent, Other (See Below) GI Surgical History: Reports: None Musculoskeletal Surgical History: Reports: Arthroscopic Knee, Hip Replacement Other Musculoskeletal Surgeries/Procedures:: left knee in the - History Comment History Comment: right cartoid endarterectomy. right hip replacment. 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 [facility], 1 in [facility]) Review of Systems - Review of Systems Review Of Systems: See Below Constitutional: Reports: No Symptoms Eyes: Reports: No Symptoms Ears: Reports: No Symptoms Nose: Reports: No Symptoms Mouth/Throat: Reports: No Symptoms Respiratory: Reports: No Symptoms Cardiovascular: Reports: Chest Pain (L lateral chest wall pain, pain with deep breathing) Genitourinary: Reports: No Symptoms Musculoskeletal: Reports: Joint Pain Skin: Reports: No Symptoms Neurological: Reports: No Symptoms Psychiatric: Reports: No Symptoms ED EXAM, GENERAL - Physical Exam Exam: See Below Exam Limited By: No Limitations General Appearance: Alert, WD/WN, No Apparent Distress Eye Exam: Bilateral Eye: EOMI, PERRL Head: Atraumatic, Normocephalic Neck: Normal Inspection, Supple, Non-Tender Respiratory/Chest: No Respiratory Distress, Decreased Breath Sounds (Pt. unable to take deep breath due to pain.) Cardiovascular: Normal Peripheral Pulses, Regular Rate, Rhythm, No Edema, No JVD, No Murmur, No Rub Peripheral Pulses: 4+: Radial (L) GI/Abdominal: Soft, Non-Tender, No Distention, No Mass (Male) Exam: Deferred Rectal (Males) Exam: Deferred Back Exam: Normal Inspection, Full Range of Motion Extremities: Other (pain on palp of L lateral hip; no crepitus. No deformity. CMS intact.) Neurological: Alert, Oriented, CN II-XII Intact, Normal Cognition, Normal Gait, Normal Reflexes Psychiatric: Normal Affect, Normal Mood Skin Exam: Warm, Dry, Pallor Course - Vital Signs Last Recorded V/S: Last Vital Signs Temp 36.5 C 03/31/21 08:18 Pulse 65 03/31/21 08:18 Resp 18 03/31/21 08:18 BP 117/95 H 03/31/21 08:18 Pulse Ox 100 03/31/21 08:18 - Radiology Interpretation Free Text/Narrative:: Pelvis and L hip radiographs did not show any acute fracture. Radiographs of chest did not reveal any broken ribs. Pt. did have some bilateral perihilar opacification. Departure - Departure Time of Disposition: 09:45 Disposition: Home, Self-Care 01 Clinical Impression: Chest wall contusion, CAP (community acquired pneumonia), Contusion, hip - Discharge Information Instructions: Acetaminophen; Hydrocodone tablets or capsules, Doxycycline tablets or capsules, Community-Acquired Pneumonia, Adult, [id number], Probiotics Referrals: Kira Weber MD [Primary Care Provider] - Forms: ED Department Discharge Additional Instructions: Doxycycline 100mg 1 twice daily for 10 days Lortab 5/325mg 1 tab every 4-6 hours as needed for pain Walk around house today. Work on deep breathing. Perform incentive spirometry as we discussed. Return to ER if you are having increased shortness of breath or trouble breathing. Sepsis Event Note (ED) - Evaluation Sepsis Screening Result: No Definite Risk - Focused Exam Vital Signs: Vital Signs Temp Pulse Resp BP Pulse Ox 03/31/21 08:18 36.5 C 65 18 117/95 H 100 - Problem List Review Problem List Initiated/Reviewed/Updated: Yes - Assessment/Plan Plan: Doxycycline 100mg 1 twice daily for 10 days Lortab 5/325mg 1 tab every 4-6 hours as needed for pain Walk around house today. Work on deep breathing. Perform incentive spirometry as we discussed. Return to ER if you are having increased shortness of breath or trouble breathing.
== END 2021-03-31 09:43 | disposition home or self-care (01) ==
LOC: VM.ED 08:13
DX: S20.212A Contusion of left front wall of thorax, initial encounter (principal); S70.02XA Contusion of left hip, initial encounter; J18.9 Pneumonia, unspecified organism; I25.10 Atherosclerotic heart disease of native coronary artery without angina pectoris; E78.00 Pure hypercholesterolemia, unspecified; I10 Essential (primary) hypertension; I25.2 Old myocardial infarction; J44.9 Chronic obstructive pulmonary disease, unspecified; E11.9 Type 2 diabetes mellitus without complications; Z95.5 Presence of coronary angioplasty implant and graft; Z79.82 Long term (current) use of aspirin; Z79.84 Long term (current) use of oral hypoglycemic drugs; Z79.899 Other long term (current) drug therapy; Z88.2 Allergy status to sulfonamides; Z88.8 Allergy status to other drugs, medicaments and biological substances; Z88.1 Allergy status to other antibiotic agents; W18.39XA Other fall on same level, initial encounter
CPT/HCPCS: 71046; 99283-25; 99284

== ENCOUNTER 2021-05-16 14:23 | Inpatient (IN) | payer MEDICARE, OTHER ==
--- NOTE | 2021-05-16 16:54 | PCM.HP.2 ---
H&P History of Present Illness - General Date of Service: 05/16/21 Admit Problem/Dx: Admission Diagnosis/Problem Admission Diagnosis/Problem CHF, Congestive heart failure - History of Present Illness Initial Comments - Free Text/Narative: Shahab is a 65-year-old male with a past medical history of heart failure, kidney disease, hypertension, COPD, mood disorder, protein calorie malnutrition, type 2 diabetes diet controlled who was recently admitted to [facility] from 05/10/2021 through 05/16/2021 for acute on chronic systolic heart failure and acute hypoxic respiratory failure. Prior to admission we had completed in echocardiogram outpatient due to worsening of his shortness of breath and his ejection fraction was found to be 15% with mild pulmonary hypertension. BNP was quite elevated as well. We are trying to give him Lasix p.o. for treatment of this and had him set up to see cardiology outpatient. Due to a fall and worsening shortness of breath/ability to care for himself at home he was admitted acutely for ongoing cares and cardiac consult. Cardiology was on board for diuresis but this was limited due to his kidney function. The day prior to discharge he was changed from Lasix to torsemide. He is requiring to so with of oxygen at 2 to 3 L for hypoxia. He did have a right transudate of pleural effusion that IR did tap while he was in the hospital. They did remove about a liter of fluid that looked to be transudate of in nature likely secondary to his heart failure. He is on amiodarone as well as digoxin. Looks like they are opting for more palliative approach to his care as he is a poor candidate for further cardiac work-up however a PET stress may be considered after discharge from hospital. Other medications during his admission included initiation of Marinol for appetite stimulation. This was added on top of his Remeron. After careful discussion during the hospitalization they did decide to move towards a more palliative approach, CODE STATUS was changed to DNR/DNI. Ultimately, his goal is to be able to return home. At the time of discharge was not felt that he was strong enough to do so just yet so he was transferred to [facility] on a swing bed status for strengthening. We will plan to get PT as well as OT involved in his cares. At the time of discharge we will likely be looking at getting the palliative care consult placed. At this time daughter notes that he is feeling okay. Denies any shortness of breath. Is on 3 L of oxygen. Is little bit backed up in regards to the stools. Otherwise no other complaints. - Related Data Allergies/Adverse Reactions: Allergies Allergy/AdvReac Type Severity Reaction Status Date / Time Sulfa (Sulfonamide Allergy Hives Verified 05/16/21 16:01 Antibiotics) sulfamethoxazole Allergy Hives Verified 05/16/21 16:01 [From Bactrim] trimethoprim [From Bactrim] Allergy Hives Verified 05/16/21 16:01 duloxetine [From Cymbalta] AdvReac intolerance Verified 05/16/21 16:01 ezetimibe [From Zetia] AdvReac Nausea Verified 05/16/21 16:01 horseradish AdvReac Diarrhea Verified 05/16/21 16:01 losartan AdvReac Dizziness Verified 05/16/21 16:01 rosuvastatin [From Crestor] AdvReac intolerance Verified 05/16/21 16:01 Flrqfne-Xqk-Tsm Reductase AdvReac intolerance Verified 05/16/21 16:01 Inhibitor Home Medications: Home Meds Aspirin [Ecotrin EC] 81 mg PO DAILY 11/05/16 [History] Calcium Carbonate [Calcium] 600 mg PO DAILY 11/05/16 [History] Sertraline [Zoloft] 200 mg PO DAILY 11/05/16 [History] amLODIPine [Norvasc] 5 mg PO DAILY 11/05/16 [History] Amiodarone [Cordarone] 200 mg PO DAILY 12/13/20 [History] Magnesium Oxide [Magnesium] 400 mg PO DAILY 12/13/20 [History] buPROPion HCL [Bupropion Xl] 150 mg PO DAILY 12/14/20 [History] Mirtazapine 7.5 mg PO BEDTIME 03/31/21 [History] Acetaminophen [Tylenol Extra Strength] 500 mg PO Q4H PRN 05/16/21 [History] Albuterol [Proventil Neb Soln] 2.5 mg NEB QIDRT PRN 05/16/21 [History] Digoxin [Digitek] 125 mcg PO Q48H 05/16/21 [History] Fish Oil/[place]-3 Fatty Acids [Fish Oil 1,000 MG] 1,000 mg PO DAILY 05/16/21 [History] Hydrocodone/Acetaminophen [HYDROcodone-Acetaminophen 5-325 MG] 1 tab PO Q4H PRN 05/16/21 [History] Insulin Aspart [NovoLOG] 2 - 8 unit SQ TIDMEALS 05/16/21 [History] Pravastatin [Pravachol] 40 mg PO BEDTIME 05/16/21 [History] Torsemide 10 mg PO DAILY 05/16/21 [History] Vit B Cmplx NO3/Fa/C/Biot/Zinc [Nephplex Rx] 1 tab PO DAILY 05/16/21 [History] carvediloL [Carvedilol] 3.125 mg PO BIDMEALS 05/16/21 [History] dronabinoL [Dronabinol] 2.5 mg PO BIDAC 05/16/21 [History] Past Medical History HEENT History: Reports: Impaired Vision Cardiovascular History: Reports: CAD, High Cholesterol, Hypertension, Stents Respiratory History: Reports: COPD Gastrointestinal History: Reports: Other (See Below) Other Gastrointestinal History: obesity Musculoskeletal History: Reports: Arthritis, Osteoarthritis, Other (See Below) Other Musculoskeletal History: Genralized arthritis Neurological History: Reports: Concussion, Other (See Below) Psychiatric History: Reports: Depression Endocrine/Metabolic History: Reports: Diabetes, Type II Immunologic History: Reports: Other (See Below) - Infectious Disease History Infectious Disease History: Reports: Chicken Pox, Measles - Past Surgical History Cardiovascular Surgical History: Reports: Coronary Artery Stent, Other (See Below) GI Surgical History: Reports: None Musculoskeletal Surgical History: Reports: Arthroscopic Knee, Hip Replacement Other Musculoskeletal Surgeries/Procedures:: left knee in the - History Comment History Comment: right cartoid endarterectomy. right hip replacment. 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; 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 [facility], 1 in [facility]) H&P Review of Systems - Review of Systems: Review Of Systems: See Below General: Reports: Weakness HEENT: Reports: No Symptoms Pulmonary: Reports: No Symptoms Cardiovascular: Reports: No Symptoms Gastrointestinal: Reports: Constipation Genitourinary: Reports: No Symptoms Musculoskeletal: Reports: No Symptoms Skin: Reports: No Symptoms Psychiatric: Reports: No Symptoms Neurological: Reports: No Symptoms Exam - Exam Exam: See Below - Vital Signs Vital Signs: Last Vital Signs Temp 98 F 05/16/21 15:43 Pulse 60 05/16/21 15:43 Resp 16 05/16/21 15:43 BP 122/61 05/16/21 15:43 Pulse Ox 10 L 05/16/21 15:43 Weight: 139 lb - Exam Quality Assessment: Supplemental Oxygen (3L per [place]) General: Alert, Oriented, Cooperative, Other (cachectic) HEENT: EOMI, Mucosa Moist & [place], Nares Patent Neck: Supple, Trachea Midline Lungs: Clear to Auscultation, Normal Respiratory Effort Cardiovascular: Regular Rate, Regular Rhythm GI/Abdominal Exam: Normal Bowel Sounds, Soft, Non-Tender Extremities: Normal Inspection, No Pedal Edema Skin: Warm, Dry Neuro Extensive - Mental Status: Alert, Oriented x3, Normal Mood/Affect Psychiatric: Alert, Depressed Sepsis Event Note - Focused Exam Vital Signs: Vital Signs Temp Pulse Resp BP Pulse Ox 05/16/21 15:43 98 F 60 16 122/61 10 L - Problem List (1) Acute on chronic systolic CHF (congestive heart failure) SNOMED Code(s): 569211898, 778460717 ICD Code: I50.23 - ACUTE ON CHRONIC SYSTOLIC (CONGESTIVE) HEART FAILURE Status: Acute Current Visit: Yes (2) Acute respiratory failure with hypoxia SNOMED Code(s): 18064268, 434241223 ICD Code: J96.01 - ACUTE RESPIRATORY FAILURE WITH HYPOXIA Status: Acute Current Visit: Yes (3) CKD (chronic kidney disease) SNOMED Code(s): 404179982 ICD Code: N18.9 - CHRONIC KIDNEY DISEASE, UNSPECIFIED Status: Chronic Current Visit: No Problem Details: BUN slightly elevated at discharge, creatinine improved to 1.3. Avoid NSAIDS; continue currently abx therapy. Qualifiers: Chronic kidney disease stage: stage 4 (severe) Qualified Code(s): N18.4 - Chronic kidney disease, stage 4 (severe) (4) Depression SNOMED Code(s): 76943824 ICD Code: F32.9 - MAJOR DEPRESSIVE DISORDER, SINGLE EPISODE, UNSPECIFIED Status: Chronic Priority: Medium Current Visit: No Problem Details: Continue currently medications as patient seemed to be doing well with regimen Qualifiers: Depression Type: major depressive disorder Major depression recurrence: recurrent Active/Remission status: currently active Psychotic features: without psychotic features Problem List Initiated/Reviewed/Updated: Yes Orders Last 24hrs: Active Orders 24 hr Category Date Time Status Admission Status [Patient Status] [ADT] Routine ADT 05/16/21 14:55 Active Oxygen Therapy [RC] PRN Care 05/16/21 16:45 Ordered Pulse Oximetry [RC] PRN Care 05/16/21 16:46 Ordered Up With Assistance [RC] ASDIRECTED Care 05/16/21 16:45 Ordered VTE/DVT Education [RC] PER UNIT ROUTINE Care 05/16/21 16:45 Ordered Vital Signs [RC] Q8H Care 05/16/21 16:45 Ordered OT Evaluation and Treatment [CONS] Routine Cons 05/16/21 16:45 Ordered PT Evaluation and Treatment [CONS] Routine Cons 05/16/21 16:45 Ordered [employer] Diet [DIET] Diet 05/16/21 Dinner Active Sodium Restricted Diet [DIET] Diet 05/16/21 Dinner Active CBC WITH AUTO DIFF [HEME] AM Lab 05/18/21 05:11 Ordered COMPREHENSIVE METABOLIC PN,CMP [CHEM] AM Lab 05/18/21 05:11 Ordered Ondansetron [Zofran ODT] Med 05/16/21 16:45 Ordered 4 mg PO Q4H PRN Code Status [Resuscitation Status] Routine Resus Stat 05/16/21 14:59 Ordered Assessment/Plan Comment:: Patient will be admitted today under swing bed status for ongoing cares prior to ability to return home. Acute on chronic systolic heart failure History of coronary artery disease Hypertension -We will plan to continue medication as prescribed at time of discharge from [facility]. -Plan for cardiology follow-up outpatient -We will continue to discuss palliative care as we move forward CKD -We will plan to repeat a renal panel on Friday for continued monitoring of his kidney disease and titration of the loop diuretic -Plan for nephrology follow-up outpatient Weakness -PT and OT to evaluate and treat as indicated. Hopefully anticipate the patient will be able to return home in the coming weeks Depression -Continue his current medications Severe protein calorie malnutrition -Encourage dietary intake, continue Remeron and Marinol
[2021-05-16] MEDS ORDERED: Acetaminophen/HYDROcodone 325-5 MG Tab PO PRN (20:35)
[2021-05-16] MEDS ORDERED: Albuterol 2.5 MG/0.5 ML UD Neb NEB PRN (20:35)
[2021-05-17] MEDS ORDERED: DRONABINOL 2.5 MG PO SCH (07:00)
[2021-05-17] MEDS ORDERED: Non-Formulary Medication 1 Each (Calcium Carbonate [Calcium] 600 MG Tablet) PO SCH (08:00)
[2021-05-17] MEDS: Torsemide 20 MG Tab PO SCH (08:32)
[2021-05-17] MEDS: Aspirin 81 MG Tab.EC PO SCH (08:32)
[2021-05-17] MEDS: Fish Oil/Omega-3 Fatty Acids 1 Gm Cap PO SCH (08:32)
[2021-05-17] MEDS: Digoxin 125 MCG Tab PO SCH (08:32)
[2021-05-17] MEDS: Ondansetron 4 MG Tab.DIS PO PRN (08:33)
[2021-05-17] MEDS: Carvedilol 3.125 MG Tab PO SCH ×2 (08:33→17:59)
[2021-05-17] MEDS: Amiodarone 200 MG Tab PO SCH (08:33)
[2021-05-17] MEDS: Vitamin B Complex Tab PO SCH (08:33)
[2021-05-17] MEDS: Sertraline 100 MG Tab PO SCH (08:33)
[2021-05-17] MEDS: amLODIPine 5 MG Tab PO SCH (08:34)
[2021-05-17] MEDS: Calcium Carbonate 750 MG Tab.Chew PO SCH (08:34)
[2021-05-17] MEDS: Magnesium Oxide 400 MG Tab PO SCH (08:34)
[2021-05-17] MEDS: buPROPion 150 MG Tab.ER PO SCH (08:37)
[2021-05-17] MEDS: Mirtazapine 15 MG Tab PO SCH (19:49)
[2021-05-17] MEDS: Simvastatin 20 MG Tab PO SCH (19:50)
[2021-05-18 07:18] LABS: ANION GAP 8.6 mmol/L (5-15)
[2021-05-18] MEDS: Sertraline 100 MG Tab PO SCH (08:12)
[2021-05-18] MEDS: Torsemide 20 MG Tab PO SCH (08:13)
[2021-05-18] MEDS: Fish Oil/Omega-3 Fatty Acids 1 Gm Cap PO SCH (08:13)
[2021-05-18] MEDS: amLODIPine 5 MG Tab PO SCH (08:13)
[2021-05-18] MEDS: Carvedilol 3.125 MG Tab PO SCH ×2 (08:13→17:54)
[2021-05-18] MEDS: Magnesium Oxide 400 MG Tab PO SCH (08:14)
[2021-05-18] MEDS: Aspirin 81 MG Tab.EC PO SCH (08:14)
[2021-05-18] MEDS: buPROPion 150 MG Tab.ER PO SCH (08:14)
[2021-05-18] MEDS: Amiodarone 200 MG Tab PO SCH (08:17)
[2021-05-18] MEDS: Calcium Carbonate 750 MG Tab.Chew PO SCH (08:18)
[2021-05-18] MEDS: Ondansetron 4 MG Tab.DIS PO PRN (08:18)
[2021-05-18] MEDS: Vitamin B Complex Tab PO SCH (08:28)
--- NOTE | 2021-05-18 13:02 | PCM.SN.2 ---
- Free Text/Narrative Note: Labs reviewed. Cr. up to 3.2 from 2.9 prior to D/C the other day. Will decrease torsemide to 5mg daily at this time. Plan to repeat labs on Friday (BMP and BNP). Continue O2 per NC.
[2021-05-18] MEDS: Simvastatin 20 MG Tab PO SCH (19:48)
[2021-05-18] MEDS: Mirtazapine 15 MG Tab PO SCH (19:48)
[2021-05-19] MEDS: Sertraline 100 MG Tab PO SCH (08:43)
[2021-05-19] MEDS: Digoxin 125 MCG Tab PO SCH (08:44)
[2021-05-19] MEDS: Vitamin B Complex Tab PO SCH (08:45)
[2021-05-19] MEDS: Fish Oil/Omega-3 Fatty Acids 1 Gm Cap PO SCH (08:45)
[2021-05-19] MEDS: Amiodarone 200 MG Tab PO SCH (08:45)
[2021-05-19] MEDS: Aspirin 81 MG Tab.EC PO SCH (08:46)
[2021-05-19] MEDS: buPROPion 150 MG Tab.ER PO SCH (08:46)
[2021-05-19] MEDS: Carvedilol 3.125 MG Tab PO SCH ×2 (08:46→17:20)
[2021-05-19] MEDS: Magnesium Oxide 400 MG Tab PO SCH (08:46)
[2021-05-19] MEDS: Torsemide 20 MG Tab PO SCH (08:47)
[2021-05-19] MEDS: amLODIPine 5 MG Tab PO SCH (08:47)
[2021-05-19] MEDS: Calcium Carbonate 750 MG Tab.Chew PO SCH (08:48)
[2021-05-19] MEDS: Mirtazapine 15 MG Tab PO SCH (20:07)
[2021-05-19] MEDS: Simvastatin 20 MG Tab PO SCH (20:08)
[2021-05-20] MEDS: Torsemide 20 MG Tab PO SCH (07:40)
[2021-05-20] MEDS: Magnesium Oxide 400 MG Tab PO SCH (07:40)
[2021-05-20] MEDS: Fish Oil/Omega-3 Fatty Acids 1 Gm Cap PO SCH (07:41)
[2021-05-20] MEDS: Amiodarone 200 MG Tab PO SCH (07:41)
[2021-05-20] MEDS: Sertraline 100 MG Tab PO SCH (07:41)
[2021-05-20] MEDS: Aspirin 81 MG Tab.EC PO SCH (07:41)
[2021-05-20] MEDS: buPROPion 150 MG Tab.ER PO SCH (07:42)
[2021-05-20] MEDS: Vitamin B Complex Tab PO SCH (07:42)
[2021-05-20] MEDS: amLODIPine 5 MG Tab PO SCH (07:43)
[2021-05-20] MEDS: Carvedilol 3.125 MG Tab PO SCH ×2 (07:43→17:32)
[2021-05-20] MEDS: Calcium Carbonate 750 MG Tab.Chew PO SCH (07:43)
[2021-05-20] MEDS: Simvastatin 20 MG Tab PO SCH (19:22)
[2021-05-20] MEDS: Mirtazapine 15 MG Tab PO SCH (19:23)
[2021-05-21] MEDS: Torsemide 20 MG Tab PO SCH (08:00)
[2021-05-21] MEDS: Amiodarone 200 MG Tab PO SCH (08:24)
[2021-05-21 08:25] LABS: ANION GAP 6.9 mmol/L (5-15)
[2021-05-21] MEDS: Fish Oil/Omega-3 Fatty Acids 1 Gm Cap PO SCH (08:25)
[2021-05-21] MEDS: Digoxin 125 MCG Tab PO SCH (08:25)
[2021-05-21] MEDS: buPROPion 150 MG Tab.ER PO SCH (08:25)
[2021-05-21] MEDS: Carvedilol 3.125 MG Tab PO SCH ×2 (08:25→16:59)
[2021-05-21] MEDS: Aspirin 81 MG Tab.EC PO SCH (08:25)
[2021-05-21] MEDS: amLODIPine 5 MG Tab PO SCH (08:25)
[2021-05-21] MEDS: Vitamin B Complex Tab PO SCH (08:25)
[2021-05-21] MEDS: Magnesium Oxide 400 MG Tab PO SCH (08:25)
[2021-05-21] MEDS: Sertraline 100 MG Tab PO SCH (08:25)
[2021-05-21] MEDS: Calcium Carbonate 750 MG Tab.Chew PO SCH (08:26)
[2021-05-21] MEDS: Mirtazapine 15 MG Tab PO SCH (19:49)
[2021-05-21] MEDS: Simvastatin 20 MG Tab PO SCH (19:49)
[2021-05-22] MEDS: Sertraline 100 MG Tab PO SCH (07:29)
[2021-05-22] MEDS: Aspirin 81 MG Tab.EC PO SCH (07:29)
[2021-05-22] MEDS: Torsemide 20 MG Tab PO SCH (07:30)
[2021-05-22] MEDS: Magnesium Oxide 400 MG Tab PO SCH (07:30)
[2021-05-22] MEDS: Amiodarone 200 MG Tab PO SCH (07:30)
[2021-05-22] MEDS: Fish Oil/Omega-3 Fatty Acids 1 Gm Cap PO SCH (07:30)
[2021-05-22] MEDS: amLODIPine 5 MG Tab PO SCH (07:31)
[2021-05-22] MEDS: Calcium Carbonate 750 MG Tab.Chew PO SCH (07:33)
[2021-05-22] MEDS: buPROPion 150 MG Tab.ER PO SCH (07:33)
[2021-05-22] MEDS: Carvedilol 3.125 MG Tab PO SCH ×2 (07:35→17:34)
[2021-05-22] MEDS: Vitamin B Complex Tab PO SCH (07:36)
[2021-05-22] MEDS: Mirtazapine 15 MG Tab PO SCH (19:32)
[2021-05-22] MEDS: Simvastatin 20 MG Tab PO SCH (19:32)
[2021-05-23] MEDS: Magnesium Oxide 400 MG Tab PO SCH (07:06)
[2021-05-23] MEDS: Torsemide 20 MG Tab PO SCH (07:07)
[2021-05-23] MEDS: Sertraline 100 MG Tab PO SCH (07:08)
[2021-05-23] MEDS: Digoxin 125 MCG Tab PO SCH (07:08)
[2021-05-23] MEDS: Aspirin 81 MG Tab.EC PO SCH (07:11)
[2021-05-23] MEDS: amLODIPine 5 MG Tab PO SCH (07:11)
[2021-05-23] MEDS: Vitamin B Complex Tab PO SCH (07:11)
[2021-05-23] MEDS: buPROPion 150 MG Tab.ER PO SCH (07:11)
[2021-05-23] MEDS: Fish Oil/Omega-3 Fatty Acids 1 Gm Cap PO SCH (07:11)
[2021-05-23] MEDS: Amiodarone 200 MG Tab PO SCH (07:11)
[2021-05-23] MEDS: Carvedilol 3.125 MG Tab PO SCH ×2 (07:17→17:28)
[2021-05-23] MEDS: Calcium Carbonate 750 MG Tab.Chew PO SCH (07:18)
[2021-05-23] MEDS: Mirtazapine 15 MG Tab PO SCH (22:36)
[2021-05-23] MEDS: Acetaminophen 500 MG Tab PO PRN (22:38)
[2021-05-23] MEDS: Simvastatin 20 MG Tab PO SCH (22:38)
[2021-05-24] MEDS: Sertraline 100 MG Tab PO SCH (08:22)
[2021-05-24] MEDS: Aspirin 81 MG Tab.EC PO SCH (08:22)
[2021-05-24] MEDS: Ondansetron 4 MG Tab.DIS PO PRN (08:22)
[2021-05-24] MEDS: Magnesium Oxide 400 MG Tab PO SCH (08:22)
[2021-05-24] MEDS: Torsemide 20 MG Tab PO SCH (08:22)
[2021-05-24] MEDS: Fish Oil/Omega-3 Fatty Acids 1 Gm Cap PO SCH (08:23)
[2021-05-24] MEDS: buPROPion 150 MG Tab.ER PO SCH (08:23)
[2021-05-24] MEDS: Carvedilol 3.125 MG Tab PO SCH ×2 (08:23→18:02)
[2021-05-24] MEDS: Amiodarone 200 MG Tab PO SCH (08:23)
[2021-05-24] MEDS: amLODIPine 5 MG Tab PO SCH (08:23)
[2021-05-24] MEDS: Vitamin B Complex Tab PO SCH (08:25)
[2021-05-24] MEDS: Calcium Carbonate 750 MG Tab.Chew PO SCH (08:25)
[2021-05-24] MEDS: Mirtazapine 15 MG Tab PO SCH (19:35)
[2021-05-24] MEDS: Simvastatin 20 MG Tab PO SCH (19:35)
[2021-05-25] MEDS: Sertraline 100 MG Tab PO SCH (09:21)
[2021-05-25] MEDS: Torsemide 20 MG Tab PO SCH (09:22)
[2021-05-25] MEDS: buPROPion 150 MG Tab.ER PO SCH (09:24)
[2021-05-25] MEDS: Carvedilol 3.125 MG Tab PO SCH ×2 (09:24→19:32)
[2021-05-25] MEDS: Aspirin 81 MG Tab.EC PO SCH (09:24)
[2021-05-25] MEDS: amLODIPine 5 MG Tab PO SCH (09:25)
[2021-05-25] MEDS: Digoxin 125 MCG Tab PO SCH (09:25)
[2021-05-25] MEDS: Amiodarone 200 MG Tab PO SCH (09:25)
[2021-05-25] MEDS: Magnesium Oxide 400 MG Tab PO SCH (09:26)
[2021-05-25] MEDS: Fish Oil/Omega-3 Fatty Acids 1 Gm Cap PO SCH (09:26)
[2021-05-25] MEDS: Calcium Carbonate 750 MG Tab.Chew PO SCH (09:26)
[2021-05-25] MEDS: Vitamin B Complex Tab PO SCH (09:26)
[2021-05-25] MEDS: Simvastatin 20 MG Tab PO SCH (19:32)
[2021-05-25] MEDS: Mirtazapine 15 MG Tab PO SCH (19:37)
[2021-05-25] MEDS: Acetaminophen 500 MG Tab PO PRN (20:25)
[2021-05-26] MEDS: Calcium Carbonate 750 MG Tab.Chew PO SCH (08:10)
[2021-05-26] MEDS: Acetaminophen 500 MG Tab PO PRN ×2 (08:11→20:38)
[2021-05-26] MEDS: Vitamin B Complex Tab PO SCH (08:12)
[2021-05-26] MEDS: Carvedilol 3.125 MG Tab PO SCH ×2 (08:12→17:58)
[2021-05-26] MEDS: Fish Oil/Omega-3 Fatty Acids 1 Gm Cap PO SCH (08:12)
[2021-05-26] MEDS: amLODIPine 5 MG Tab PO SCH (08:13)
[2021-05-26] MEDS: buPROPion 150 MG Tab.ER PO SCH (08:13)
[2021-05-26] MEDS: Sertraline 100 MG Tab PO SCH (08:13)
[2021-05-26] MEDS: Amiodarone 200 MG Tab PO SCH (08:13)
[2021-05-26] MEDS: Torsemide 20 MG Tab PO SCH (08:14)
[2021-05-26] MEDS: Aspirin 81 MG Tab.EC PO SCH (08:14)
[2021-05-26] MEDS: Magnesium Oxide 400 MG Tab PO SCH (08:14)
[2021-05-26] MEDS: Simvastatin 20 MG Tab PO SCH (20:37)
[2021-05-26] MEDS: Mirtazapine 15 MG Tab PO SCH (20:37)
[2021-05-27] MEDS: Sertraline 100 MG Tab PO SCH (07:37)
[2021-05-27] MEDS: Digoxin 125 MCG Tab PO SCH (07:37)
[2021-05-27] MEDS: Fish Oil/Omega-3 Fatty Acids 1 Gm Cap PO SCH (07:37)
[2021-05-27] MEDS: buPROPion 150 MG Tab.ER PO SCH (07:37)
[2021-05-27] MEDS: Aspirin 81 MG Tab.EC PO SCH (07:38)
[2021-05-27] MEDS: Carvedilol 3.125 MG Tab PO SCH ×2 (07:38→17:27)
[2021-05-27] MEDS: Amiodarone 200 MG Tab PO SCH (07:38)
[2021-05-27] MEDS: amLODIPine 5 MG Tab PO SCH (07:38)
[2021-05-27] MEDS: Magnesium Oxide 400 MG Tab PO SCH (07:38)
[2021-05-27] MEDS: Torsemide 20 MG Tab PO SCH (07:38)
[2021-05-27] MEDS: Vitamin B Complex Tab PO SCH (07:43)
[2021-05-27] MEDS: Calcium Carbonate 750 MG Tab.Chew PO SCH (07:43)
[2021-05-27 08:23] LABS: ANION GAP 11.6 mmol/L (5-15)
[2021-05-27] MEDS: Acetaminophen 500 MG Tab PO PRN ×2 (13:51→19:27)
[2021-05-27] MEDS: Mirtazapine 15 MG Tab PO SCH (19:25)
[2021-05-27] MEDS: Simvastatin 20 MG Tab PO SCH (19:28)
[2021-05-28] MEDS: Calcium Carbonate 750 MG Tab.Chew PO SCH (08:05)
[2021-05-28] MEDS: Carvedilol 3.125 MG Tab PO SCH ×2 (08:40→19:27)
[2021-05-28] MEDS: amLODIPine 5 MG Tab PO SCH (08:40)
[2021-05-28] MEDS: Aspirin 81 MG Tab.EC PO SCH (09:59)
[2021-05-28] MEDS: Torsemide 20 MG Tab PO SCH (09:59)
[2021-05-28] MEDS: Magnesium Oxide 400 MG Tab PO SCH (09:59)
[2021-05-28] MEDS: Amiodarone 200 MG Tab PO SCH (10:00)
[2021-05-28] MEDS: buPROPion 150 MG Tab.ER PO SCH (10:01)
[2021-05-28] MEDS: Fish Oil/Omega-3 Fatty Acids 1 Gm Cap PO SCH (10:01)
[2021-05-28] MEDS: Sertraline 100 MG Tab PO SCH (10:01)
[2021-05-28] MEDS: Vitamin B Complex Tab PO SCH (10:01)
[2021-05-28] MEDS: Ondansetron 4 MG Tab.DIS PO PRN (18:14)
[2021-05-28] MEDS: Mirtazapine 15 MG Tab PO SCH (19:27)
[2021-05-28] MEDS: Simvastatin 20 MG Tab PO SCH (19:28)
[2021-05-28 19:34] VITALS: PULSE 65
[2021-05-29 06:15] VITALS: BP 130/63
[2021-05-29] MEDS: Amiodarone 200 MG Tab PO SCH (08:40)
[2021-05-29] MEDS: Digoxin 125 MCG Tab PO SCH (08:40)
[2021-05-29] MEDS: amLODIPine 5 MG Tab PO SCH (08:40)
[2021-05-29] MEDS: Aspirin 81 MG Tab.EC PO SCH (08:40)
[2021-05-29] MEDS: Vitamin B Complex Tab PO SCH (08:41)
[2021-05-29] MEDS: Fish Oil/Omega-3 Fatty Acids 1 Gm Cap PO SCH (08:41)
[2021-05-29] MEDS: Torsemide 20 MG Tab PO SCH (08:41)
[2021-05-29] MEDS: Carvedilol 3.125 MG Tab PO SCH (08:41)
[2021-05-29] MEDS: Magnesium Oxide 400 MG Tab PO SCH (08:41)
[2021-05-29] MEDS: Calcium Carbonate 750 MG Tab.Chew PO SCH (08:41)
[2021-05-29] MEDS: Sertraline 100 MG Tab PO SCH (08:41)
[2021-05-29] MEDS: buPROPion 150 MG Tab.ER PO SCH (08:41)
--- NOTE | 2021-05-29 08:46 | PCM.DCSUM1 ---
Discharge Summary - Hospital Course Free Text/Narrative:: Shahab is a 65-year-old male with a past medical history of heart failure, kidney disease, hypertension, COPD, mood disorder, protein calorie malnutrition, type 2 diabetes diet controlled who was recently admitted to [facility] from 05/10/2021 through 05/16/2021 for acute on chronic systolic heart failure and acute hypoxic respiratory failure. Prior to admission we had completed in echocardiogram outpatient due to worsening of his shortness of breath and his ejection fraction was found to be 15% with mild pulmonary hypertension (down from ~40% after his DE/CABG in September). BNP was quite elevated as well. We were trying to give him Lasix p.o. for treatment of this and had him set up to see cardiology outpatient. Due to a fall and worsening shortness of breath/ability to care for himself at home he was admitted acutely for ongoing cares and cardiac consult. While in [place] his diuresis was adjusted and was requiring some O2 supplementation, amiodarone and digoxin were added. Ultimately a palliative care approach was agreed upon between the patient's family and the specialists. Cardiology was considering a PET stress after discharge from hospital. Other medications during his admission included initiation of Marinol for appetite stimulation. This was added on top of his Remeron. After careful discussion during the hospitalization they did decide to move towards a more palliative approach, CODE STATUS was changed to DNR/DNI. He was transferred to [facility] for ongoing strengthening and cares as his ultimate goal is to return home. He has done well with progressing with his therapies/strengthening and was felt ready for discharge home with home health for ongoing PT cares. Multiple discussions were had with family during admission (between nursing and provider) in regards to predicted outcomes. - Discharge Data Discharge Date: 05/29/21 Discharge Disposition: Home, W Home Health Agency 06 Condition: Poor - Referral to Home Health Date of Face to Face Encounter: 05/29/21 Reason for Homebound Status: unable to safely ambulate distances less than 20 feet, patient requires standby assist due to loss of balance, and patient requires frequent rest periods due to weakness and loss of endurance, patient requires use of assistive device and/or use of burgess/furniture to ambulate (high fall risk) and patient requires assistance of another person to leave the home Primary Care Physician: Kira Weber MD Skilled Need: PT, Bath Aid. Face to Face Documentation Encounter. Date of Encounter: 05/29/21. Patients Name: Chris Epperson. Date of : 51. I certify that Stan Epperson is under my care and that I, or a nurse practitioner or physicians assistant unit forester, had a face to face encounter that meets the physician [id number] requirements on 05/29/21. (This date must match the discharge summary progress note/clinic visit documentation supporting this information.). The encounter with the patient was in whole or in part for the following medical condition, which is the primary reason for home health care: Physical therapy for strengthening, balance, and gait training. My clinical findings support the need for the services because of inability to safely get to an outpatient fa cility for therapy due to fall risk, lack of muscle coordination and tone, balance issues, and weakness. Further, I certify that my clinical findings support that this patient is homebound (i.e. absences from home require considerable and taxing effort, or are for medical reasons, or for scientology services, or infrequent or of short duration when for other reasons) because the patient is unable to safely ambulate distances less than 20 feet, patient requires standby assist due to loss of balance, and patient requires frequent rest periods due to weakness and loss of endurance, patient requires use of assistive device and/or use of burgess/furniture to ambulate (high fall risk) and patient requires assistance of another person to leave the home, he would also benefit from a bath aid for assistance in his basic ADLs. Certification: For Home Health Services. I certify that Stan Epperson meets the homebound requirements for the payer source and has a need for intermittent skilled nursin g, physician, and/or speech or occupational therapy services in the home for the diagnosis currently outlined in the initial plan of care. These services will continue to be monitored by . This physician will periodically review and update the plan of care as required. My signature indicates that this supplemental documentation has been incorporated in the patients medical record. Kira Weber MD - Discharge Diagnosis/Problem(s) (1) Acute on chronic systolic CHF (congestive heart failure) SNOMED Code(s): 716743205, 260619265 ICD Code: I50.23 - ACUTE ON CHRONIC SYSTOLIC (CONGESTIVE) HEART FAILURE Status: Acute Current Visit: Yes (2) Acute respiratory failure with hypoxia SNOMED Code(s): 05328481, 714593860 ICD Code: J96.01 - ACUTE RESPIRATORY FAILURE WITH HYPOXIA Status: Acute Current Visit: Yes (3) CKD (chronic kidney disease) SNOMED Code(s): 432372194 ICD Code: N18.9 - CHRONIC KIDNEY DISEASE, UNSPECIFIED Status: Chronic Current Visit: No Problem Details: BUN slightly elevated at discharge, creatinine improved to 1.3. Avoid NSAIDS; continue currently abx therapy. Qualifiers: Chronic kidney disease stage: stage 4 (severe) Qualified Code(s): N18.4 - Chronic kidney disease, stage 4 (severe) (4) Depression SNOMED Code(s): 96530313 ICD Code: F32.9 - MAJOR DEPRESSIVE DISORDER, SINGLE EPISODE, UNSPECIFIED Status: Chronic Priority: Medium Current Visit: No Problem Details: Continue currently medications as patient seemed to be doing well with regimen Qualifiers: Depression Type: major depressive disorder Major depression recurrence: recurrent Active/Remission status: currently active Psychotic features: without psychotic features - Patient Summary/Data Consults: Consultations 05/16/21 16:45 OT Evaluation and Treatment [CONS] Routine PT Evaluation and Treatment [CONS] Routine 05/18/21 13:05 Consult to Case Management/Acupuncture Physician [CONS] Routine - Discharge Plan *PRESCRIPTION DRUG MONITORING PROGRAM REVIEWED*: Not Applicable *COPY OF PRESCRIPTION DRUG MONITORING REPORT IN PATIENT CLARE: Not Applicable Prescriptions/Med Rec: Torsemide 5 mg PO DAILY #30 Home Medications: Home Meds Aspirin [Ecotrin EC] 81 mg PO DAILY 11/05/16 [History] Calcium Carbonate [Calcium] 600 mg PO DAILY 11/05/16 [History] Sertraline [Zoloft] 200 mg PO DAILY 11/05/16 [History] amLODIPine [Norvasc] 5 mg PO DAILY 11/05/16 [History] Amiodarone [Cordarone] 200 mg PO DAILY 12/13/20 [History] Magnesium Oxide [Magnesium] 400 mg PO DAILY 12/13/20 [History] buPROPion HCL [Bupropion Xl] 150 mg PO DAILY 12/14/20 [History] Mirtazapine 7.5 mg PO BEDTIME 03/31/21 [History] Acetaminophen [Tylenol Extra Strength] 500 mg PO Q4H PRN 05/16/21 [History] Albuterol [Proventil Neb Soln] 2.5 mg NEB QIDRT PRN 05/16/21 [History] Digoxin [Digitek] 125 mcg PO Q48H 05/16/21 [History] Fish Oil/Pickerel-3 Fatty Acids [Fish Oil 1,000 MG] 1,000 mg PO DAILY 05/16/21 [History] Hydrocodone/Acetaminophen [HYDROcodone-Acetaminophen 5-325 MG] 1 tab PO Q4H PRN 05/16/21 [History] Pravastatin [Pravachol] 40 mg PO BEDTIME 05/16/21 [History] Vit B Cmplx NO3/Fa/C/Biot/Zinc [Nephplex Rx] 1 tab PO DAILY 05/16/21 [History] carvediloL [Carvedilol] 3.125 mg PO BIDMEALS 05/16/21 [History] dronabinoL [Dronabinol] 2.5 mg PO BIDAC 05/16/21 [History] Torsemide 5 mg PO DAILY #30 05/29/21 [Rx] - Discharge Summary/Plan Comment DC Time >30 min.: Yes Total # of Minutes for Discharge Time: 40 Discharge Summary/Plan Comment: Home health PT ordered Patient should follow-up with PCP in 2 weeks in clinic Keep upcoming cardiology appointments Dressing cares to the foot: nursing to explain to the - Patient Data Vitals - Most Recent: Last Vital Signs Temp 98.1 F 05/29/21 06:14 Pulse 65 05/29/21 06:14 Resp 18 05/29/21 06:14 BP 130/63 05/29/21 06:14 Pulse Ox 92 L 05/29/21 06:14 Weight - Most Recent: 121 lb 6 oz I&O - Last 24 hours: Intake & Output 05/28/21 05/29/21 05/29/21 22:59 06:59 14:59 Intake Total 240 Balance 240 Med Orders - Current: Current Medications Acetaminophen (Acetaminophen 500 Mg Tab) 500 mg PO Q4H PRN PRN Reason: Pain (mild 1-3) Last Admin: 05/27/21 19:27 Dose: 500 mg Documented by: Hydrocodone Bitart/Acetaminophen (Acetaminophen/Hydrocodone 325-5 Mg Tab) 1 tab PO Q4H PRN PRN Reason: Pain (moderate 4-6) Last Admin: 05/28/21 18:12 Dose: 1 tab Documented by: Albuterol (Albuterol 2.5 Mg/0.5 Ml Ud Neb) 2.5 mg NEB QIDRT PRN PRN Reason: Shortness of Breath Amiodarone HCl (Amiodarone 200 Mg Tab) 200 mg PO DAILY [facility] Last Admin: 05/28/21 10:00 Dose: 200 mg Documented by: Amlodipine Besylate (Amlodipine 5 Mg Tab) 5 mg PO DAILY [facility] Last Admin: 05/28/21 08:40 Dose: Not Given Documented by: Aspirin (Aspirin 81 Mg Tab.Ec) 81 mg PO DAILY [facility] Last Admin: 05/28/21 09:59 Dose: 81 mg Documented by: Bupropion HCl (Bupropion 150 Mg Tab.Er) 150 mg PO DAILY [facility] Last Admin: 05/28/21 10:01 Dose: 150 mg Documented by: Calcium Carbonate/Glycine (Calcium Carbonate 750 Mg Tab.Chew) 750 mg PO DAILY [facility] Last Admin: 05/28/21 08:05 Dose: Not Given Documented by: Carvedilol (Carvedilol 3.125 Mg Tab) 3.125 mg PO BIDMEALS [facility] Last Admin: 05/28/21 19:27 Dose: 3.125 mg Documented by: Digoxin (Digoxin 125 Mcg Tab) 125 mcg PO Q48H [facility] Last Admin: 05/27/21 07:37 Dose: 125 mcg Documented by: Fish Oil (Fish Oil/Pickerel-3 Fatty Acids 1 Gm Cap) 1 gm PO DAILY [facility] Last Admin: 05/28/21 10:01 Dose: 1 gm Documented by: Magnesium Oxide (Magnesium Oxide 400 Mg Tab) 400 mg PO DAILY [facility] Last Admin: 05/28/21 09:59 Dose: 400 mg Documented by: Mirtazapine (Mirtazapine 15 Mg Tab) 7.5 mg PO BEDTIME [facility] Last Admin: 05/28/21 19:27 Dose: 7.5 mg Documented by: Non-Formulary Medication (Dronabinol) 2.5 mg PO BIDAC [facility] Last Admin: 05/17/21 15:19 Dose: Not Given Documented by: Ondansetron HCl (Ondansetron 4 Mg Tab.Dis) 4 mg PO Q4H PRN PRN Reason: nausea, able to take PO Last Admin: 05/28/21 18:14 Dose: 4 mg Documented by: Sertraline HCl (Sertraline 100 Mg Tab) 200 mg PO DAILY [facility] Last Admin: 05/28/21 10:01 Dose: 200 mg Documented by: Simvastatin (Simvastatin 20 Mg Tab) 20 mg PO BEDTIME [facility] Last Admin: 05/28/21 19:28 Dose: 20 mg Documented by: Torsemide (Torsemide 20 Mg Tab) 5 mg PO DAILY [facility] Last Admin: 05/28/21 09:59 Dose: 5 mg Documented by: Vitamin B Complex (Vitamin B Complex Tab) 1 each PO DAILY [facility] Last Admin: 05/28/21 10:01 Dose: 1 each Documented by: Discontinued Medications Torsemide (Torsemide 20 Mg Tab) 10 mg PO DAILY [facility] Last Admin: 05/18/21 08:13 Dose: 10 mg Documented by: - Exam General: Reports: Alert, Oriented, Cooperative, No Acute Distress, Other (cachectic) HEENT: Reports: EOMI, Mucous Membr. Moist/[place] Lungs: Reports: Clear to Auscultation, Normal Respiratory Effort Cardiovascular: Reports: Regular Rate, Regular Rhythm GI/Abdominal Exam: Soft, Other (convex, thin) Back Exam: Reports: Normal Inspection Extremities: Normal Inspection, Non-Tender, No Pedal Edema Skin: Reports: Warm, Dry Wound/Incisions: Reports: Other (dressing to the foot) Psy/Mental Status: Reports: Alert, Depressed, Other (slightly tearful)
== END 2021-05-29 15:50 | disposition home health service (06) | DRG 947 ==
LOC: VM.MS 14:50
PROVIDERS: ADMIT Family Medicine; ATTEND Family Medicine
DX: R53.81 Other malaise (principal); I50.23 Acute on chronic systolic (congestive) heart failure; J96.01 Acute respiratory failure with hypoxia; E43 Unspecified severe protein-calorie malnutrition; N18.4 Chronic kidney disease, stage 4 (severe); I13.0 Hypertensive heart and chronic kidney disease with heart failure and stage 1 through stage 4 chronic kidney disease, or unspecified chronic kidney disease; Z68.1 Body mass index [BMI] 19.9 or less, adult; F32.9 Major depressive disorder, single episode, unspecified; J44.9 Chronic obstructive pulmonary disease, unspecified; E11.22 Type 2 diabetes mellitus with diabetic chronic kidney disease; Z66 Do not resuscitate; I25.10 Atherosclerotic heart disease of native coronary artery without angina pectoris; E78.00 Pure hypercholesterolemia, unspecified; H54.7 Unspecified visual loss; M19.90 Unspecified osteoarthritis, unspecified site; Z96.649 Presence of unspecified artificial hip joint; Z88.2 Allergy status to sulfonamides; Z88.8 Allergy status to other drugs, medicaments and biological substances; Z79.82 Long term (current) use of aspirin; Z79.4 Long term (current) use of insulin; Z79.899 Other long term (current) drug therapy; Z87.891 Personal history of nicotine dependence; Z95.5 Presence of coronary angioplasty implant and graft
CPT/HCPCS: 36415; 80048; 80053; 82947; 83880; 85025; 97110-GP; 97116-GP; 97129-GO; 97161-GP; 97165-GO; A9270-GY